=== PATIENT | female | born 1960 | race Caucasian/White ===

== ENCOUNTER → 2016-09-29 | Outpatient (CLI) | payer OTHER ==
[~2016-09-29] MED LIST: ALBUAER2 INH; CHOL1CAP95; FURO-85 PO; GABA600T PO; IBUP-1428 PO; LISI-729 PO; MAGN400T6 PO; METO25TA56 PO; MONT1TAB3 PO; PANT40TA PO; SYMIN/8045 INH; TIOTCAP INH; TRAM-10 PO
== END | disposition home or self-care (01) ==
LOC: C.LABPVFM 13:26
PROVIDERS: ATTEND Nurse Practitioner
DX: E55.9 Vitamin D deficiency, unspecified (principal); E83.42 Hypomagnesemia

== ENCOUNTER → 2016-12-18 | Outpatient (CLI) | payer OTHER | END | disposition home or self-care (01) | LOC: C.LABPVFM 15:04 | PROVIDERS: ATTEND Nurse Practitioner | DX: E55.9 Vitamin D deficiency, unspecified (principal) ==

== ENCOUNTER → 2016-12-18 | Outpatient (CLI) | payer OTHER ==
--- NOTE | 2016-12-18 14:31 | DIAGNOSTIC IMAGING REPORT ---
THORACIC SPINE 3 VIEWS HISTORY: Cervicalgia, thoracic BACK PAIN COMPARISON: None. FINDINGS: There is no fracture. No subluxation. Mild degenerative disc disease within the upper to mid thoracic spine. IMPRESSION: No fracture or subluxation within the thoracic spine. Electronically signed by: Jesus Parr M.D. 12/18/2016 2:29 PM Dictated Date/Time: 12/18/2016 2:28 PM
--- NOTE | 2016-12-18 16:46 | DIAGNOSTIC IMAGING REPORT ---
CERVICAL SPINE 6 VIEWS CLINICAL HISTORY: Cervicalgia. FINDINGS: AP, lateral, bilateral oblique, odontoid, and swimmer's views of the cervical spine are obtained. No prior studies are available for comparison at the time of dictation. The skeletal structures are osteopenic. There is no radiographic evidence of fracture or subluxation involving the cervical spine. Vertebral body height and alignment are maintained throughout the cervical spine. C7 is best seen on the swimmer's view. The atlantodental articulation appears preserved. The odontoid process and lateral masses are intact on the open mouth view. The spinolaminar line is intact. Tiny anterior osteophytes are seen throughout. The intervertebral disc spaces appear maintained. A small posterior disc osteophyte complex at C6-C7 may contribute to mild acquired compromise of the central canal. Mild bilateral neural foraminal stenosis is suggested in the lower cervical region on the oblique views. The prevertebral soft tissues are within normal limits. There is atherosclerotic calcification of the carotid bulbs. Partially imaged apical lung parenchyma appears clear. IMPRESSION: 1. There is no acute bony abnormality is seen involving the cervical spine. 2. Osteopenia and mild spondylotic change as above. Dictated: 12/18/2016 4:00 PM Transcribed: 12/18/2016 4:45 PM [id number] Electronically signed by: William Silva M.D. 12/19/2016 7:07 AM Dictated Date/Time: 12/18/2016 4:00 PM
== END | disposition home or self-care (01) ==
LOC: C.RADBC 13:52
PROVIDERS: ATTEND Physician Assistant
DX: M54.2 Cervicalgia (principal); M85.88 Other specified disorders of bone density and structure, other site; M54.6 Pain in thoracic spine; E55.9 Vitamin D deficiency, unspecified; M54.16 Radiculopathy, lumbar region; M79.1 Myalgia; Z88.1 Allergy status to other antibiotic agents; Z88.8 Allergy status to other drugs, medicaments and biological substances; Z88.5 Allergy status to narcotic agent; E66.01 Morbid (severe) obesity due to excess calories

== ENCOUNTER → 2017-01-01 | Outpatient (CLI) | payer OTHER ==
--- NOTE | 2017-01-01 12:10 | DIAGNOSTIC IMAGING REPORT ---
ULTRASOUND OF THE CAROTID ARTERIES CLINICAL HISTORY: Atherosclerotic carotid disease COMPARISON STUDY: None. TECHNIQUE: Real-time, grayscale, and color Doppler sonography of the carotid arteries was performed. Imaging reviewed in the transverse and longitudinal planes. NASCET criteria was utilized for stenosis calcification. FINDINGS: There is mild to moderate atherosclerotic plaque present . The peak systolic velocity within the right internal carotid artery is 109 cm/sec. The systolic velocity ratio of right internal to common carotid artery is 1.3. The peak systolic velocity within the left internal carotid artery is 82 cm/sec. The systolic velocity ratio left internal to common carotid artery is 0.8. Antegrade flow is seen in the vertebral arteries. The external carotid arteries are patent. Blood pressure in the right arm measured 151 mm/Hg. Blood pressure in the left arm measured 152 mm/Hg. IMPRESSION: Atheromatous changes. No evidence of hemodynamic significant carotid stenosis. Electronically signed by: Cash Rojas M.D. 01/01/2017 12:08 PM Dictated Date/Time: 01/01/2017 12:06 PM
--- NOTE | 2017-01-05 13:05 | CODING QUERY MEDICAL NECESSITY ---
SUPPORTING DIAGNOSIS NEEDED A supporting diagnosis is required for the test/procedure performed on this patient in order for us to be reimbursed by the patient's insurance. Please provide a supporting diagnosis for the following test/procedure listed below next to the test name along with your signature. *If there is no additional diagnosis for this patient that would support the following test/procedure please document that below next to the test/procedure. Test(s)/Procedure(s) that require a supporting diagnosis: DOS 01/01 * Carotid Doppler DIAGNOSIS: Provider Signature: Date: Thank you Helen Jarquin Health Information Management Once completed, please kindly fax back to [phone] For questions please call [phone]
== END | disposition home or self-care (01) ==
LOC: C.ULTR 11:19
PROVIDERS: ATTEND Nurse Practitioner
DX: I65.29 Occlusion and stenosis of unspecified carotid artery (principal)

== ENCOUNTER → 2017-05-15 | Outpatient (CLI) | payer OTHER ==
--- NOTE | 2017-05-16 08:21 | SPLIT NIGHT TECHNICIAN REPORT ---
[facility] Split Night Polysomnogram - Siderographist Report Study date: 05/15/2017 Referring Physician: BUDDY AUSTIN DO, DO Name: BRIAN HICKS Siderographist: Desi Shepard, PSGT. Date of : 1960 Height: 56 years, Height 5' 4" Sex: Female Weight: 278 lbs Age: 56 Neck Circum:18.5 inches BMI: Medications: 47.71 Furosemide 20 mg, Gabapentin 300 mg, IBP 800 mg, Lisinopril 10 mg, Magnesium 500 mg, Metoprolol 25 mg, Montelukast Sodium 10 mg, Pantoprazole Sodium 40 mg, Stiolto Resp., Tramadol HCI 50 mg, Ventolin HFA, Vit.D3 5000 units. Patient History 56 yr. old female presents tonight for a split night study. Patient states that she snores and snorts herself awake, she also states that while at her daughters' house she was told that she stops breathing during sleep. Pt. sleeps in a recliner at home due to a back pain and C.O.P.D. ESS=13, Neck=18.5 inches. Parameters Monitored NPSG: E1-M2, E2-M1, Fp1-M2, Fp2-M1, F3-M2, F4-M2, F4-M1, C3-M2, C4-M2, C4-M1, O1-M2, O2-M2, O2-M1, T3-M2, T4-M1, P3-M2, P4-M1, CHIN1, CHIN2, HR, EKG, Legs, PFLOW, SNOR, FLOW, CFLOW, Tidal Volume, THOR, ABDO, SpO2, PLTH, CPRESS, ETCO2 Wave, ETCO2, pH SLEEP SUMMARY DATA DIAGNOSTIC TREATMENT Lights Out: 9:55:27 PM NONE Lights On: 1:37:27 AM 5:29:57 AM Total Recording Time (TRT): 223.7 min. 228.8 min. Total Sleep Time (TST): 129.5 min. 203.5 min. NREM Time: 129.5 min. 163.5 min. REM Time: 0.0 min. 40.0 min. Sleep Period Time (SPT): 172.5 min. 204.0 min. Sleep Efficiency (SE): 58 % 90 % Sleep Latency: 49.0 min. NONE min. Arousal Index: 73.2 7.4 PAP Treatment Levels: 4, 6, 7, 8, 9 * Optimal Pressure(s) SLEEP STAGING DATA DIAGNOSTIC TREATMENT Duration (min) TST % Duration (min) TST % Stage Wake: 94.2 min. -- 25.3 min. -- WASO: 43.5 min. -- 0.5 min. -- NREM: 129.5 min. 100 % 163.5 min. 80 % Stage N1: 11.0 min. 8 % 1.5 min. 1 % Stage N2: 118.5 min. 92 % 105.5 min. 52 % Stage N3: 0.0 min. 0 % 56.5 min. 28 % REM: 0.0 min. 0 % 40.0 min. 20 % POSITIONAL DATA Event Count Index Event Count Index Supine: 23 64.2 15 4.4 Supine NREM: 23 64.2 13 4.8 Supine REM: N/A N/A 2 3 Non-Supine: 119 66.1 N/A N/A Non-Supine NREM: 119 66.1 N/A N/A Non-Supine REM: N/A N/A N/A N/A AROUSAL SUMMARY DATA: Event Count Index Event Count Index Apnea Arousals: 4 4.6 0 0.0 Hypopnea Arousals: 50 23.2 2 0.6 Snore Arousals: 23 10.7 2 0.6 PLM Arousals: 14 6.5 5 1.5 Non-Specific Arousals: 61 28.3 16 4.7 Total Arousals: 158 73.2 25 7.4 MYOCLONUS (PLM) Event Count Index Event Count Index PLM: 99 45.9 139 41.0 PLM AROUSAL: 14 6.5 5 1.5 PLM W/O AROUSAL 99 45.9 134 39.5 PLM W/RESP EVENT 10 0.0 3 0.0 MYOCLONUS (PLM) Event Count Index Event Count Index LM: 7 39.8 19 5.6 LM AROUSAL: 7 3.2 0 0.0 LM W/O AROUSAL LM W/RESP EVENT LM NON SPECIFIC 117 54.2 146 43.0 HEART RATE DATA DIAGNOSTIC TREATMENT Sleep (bpm): 85 80 REM (bpm): N/A 88 NREM (bpm): 92 90 Tachycardia Count: 0 0 Tachycardia Duration: 0.00 0 Bradycardia Count: 0 0 Bradycardia Duration: 0.00 0 DIAGNOSTIC PORTION TREATMENT PORTION RESPIRATORY DATA Event Count Index Event Count Index AHI: -- 65.8 -- 4.4 RDI: -- 65.8 -- 4 Obstructive Apnea: 10 4.6 0 0.0 Central Apnea: 0 0.0 0 0.0 Mixed Apnea: 0 0.0 0 0.0 Hypopnea: 132 61.2 15 4.4 RERA: 0 0.0 0 0.0 Total Apneas: 10 4.6 0 0.0 RESPIRATORY DATA REM NREM SLEEP REM NREM SLEEP Supine Position: Obstructive Apneas: N/A 0 0 0 0 0 Central Apneas: N/A 0 0 0 0 0 Mixed Apneas: N/A 0 0 0 0 0 Hypopneas: N/A 23 23 2 13 15 RERA N/A 0 0 0 0 0 Total Supine Events: N/A 23 23 2 13 15 Supine AHI: N/A 64.2 64.2 3 4.8 4.4 Supine RDI: N/A 64.2 64.2 3.0 4.8 4.4 REM NREM SLEEP REM NREM SLEEP Non-Supine Position: Obstructive Apneas: N/A 10 10 N/A N/A N/A Central Apneas: N/A 0 0 N/A N/A N/A Mixed Apneas: N/A 0 0 N/A N/A N/A Hypopneas: N/A 109 109 N/A N/A N/A RERA N/A 0 0 N/A N/A N/A Total Supine Events: N/A 119 119 N/A N/A N/A Supine AHI: N/A 66.1 66.1 N/A N/A N/A Supine RDI: N/A 66.1 66.1 N/A N/A N/A OXYGEN DESTAURATION DATA: Event Count Index Event Count Index REM Desaturations: N/A N/A 6 9.0 NREM Desaturations: 169 78.3 18 6.6 SNORE DATA DIAGNOSTIC TREATMENT Snore Time: 11.3 2:05:57 AM Snore TST%: 4 2 Snore Arousal Count: 23 2 Snore Arousal Index: 10.7 0.6 Desaturation Event Summary: Minimum %SpO2 Event Count Mean/Min/Max Duration(sec.) Desaturation Index % Time In Bed > 90 186 23.1 / 9.3 / 58.8 45.4 55.9 86 - 90 15 20.6 / 7.0 / 57.5 5.0 41.2 81 - 85 0 N/A 0.0 2.9 76 - 80 0 N/A 0.0 0.0 71 - 75 0 N/A 0.0 0.0 66 - 70 0 N/A 0.0 0.0 61 - 65 0 N/A 0.0 0.0 56 - 60 0 N/A 0.0 0.0 51 - 55 0 N/A 0.0 0.0 < 50 0 N/A 0.0 0.0 OXYGEN SATURATION DATA DIAGNOSTIC TREATMENT SpO2 Mean Sleep: 92 % 89 % SpO2 Mean REM: N/A % 88 % SpO2 Mean NREM: 92 % 90 % SpO2 Minimum Sleep: 79 % 80 % SpO2 Minimum REM: N/A % 83 % SpO2 Minimum NREM: 79 % 80 % Time Below 90% (TST): 20.3 97.5 Time Below 88% (TST): 4.7 39.1 Total REM NREM Awake <50% 0.0 min. 0.0 min. 0.0 min. 0.0 min. 51 - 60% 0.0 min. 0.0 min. 0.0 min. 0.0 min. 61 - 70% 0.0 min. 0.0 min. 0.0 min. 0.0 min. 71 - 80% 0.1 min. 0.0 min. 0.1 min. 0.0 min. 81 - 90% 193.8 min. 34.5 min. 146.1 min. 13.3 min. 91 - 100% 245.9 min. 5.5 min. 143.5 min. 97.0 min. Average 91 88 91 93 Minimum SpO2 79 83 79 82 Desaturation Event Index 25.7 9.0 38.3 1.0 # Desat. Events below 89% 86 6 80 0 Time(%) with Saturation below 89% 16.9 5.9 10.5 0.6 Time(min.) with Saturation below 89% 74.2 25.7 46.0 2.5 Recording Siderographist Comments: Split -Night: MS. Hicks slept in the right, and supine positions. No cardiac arrhythmia or PLM's noted. No bruxism noted. Snoring was noted and scored as a 3 on a scale of 1 through 5. (0=no snoring, 5=snoring loud enough to be heard through a closed door or down the [address] way) At 1:37 am, MS. Hicks has met specific Split-Night criteria during the diagnostic portion of this study. CPAP was initiated at +4 CMH2O and up-titrated to an optimal level of +9 CMH2O, which nearly eliminated all respiratory events and snoring. A Respironics Nicolle View, was used during titration Ms. Hicks awoke to use the restroom one time during the night. Ms. Hicks stated, I did not sleep as well as I do when I am in my own chair. Patient stated that she sleeps in a recliner at home, she didn't feel her legs were elevated enough in the hospital bed so her back was hurting her. The tech put two pillows behind her knees for support and she said that gave her some relief. She stated that her back is very painful. Patient did sleep with her head at a 40% incline and legs elevated throughout the study. The final report will be interpreted and signed by a sleep physician. The completed physician report will then be placed in the patient medical record. Ms. Hicks was very anxious with the full face mask, she started to hyperventilate, A Nicolle view was then tried with much better results', patient slept well and tolerated treatment well. Therapy Event: Therapy (cm H20) 0 4 6 7 8 9 Total Time at Pressure (min.) 223.7 2.8 58.5 77.3 15.9 72.8 TST at Pressure (min.) 129.5 0.0 37.5 77.3 15.9 72.8 # Periods 1 1 1 1 1 1 Sleep Onset (min.) 49.0 N/A 20.5 0.0 0.0 0.0 REM Onset (min.) N/A N/A N/A 9.0 N/A 31.3 Sleep Efficiency % 57 0 64 100 100 100 Wakefulness (%) 42.1 100.0 35.9 0.0 0.0 0.0 Wakefulness (min.) 94.2 2.8 21.0 0.0 0.0 0.0 NREM 1 (%) 4.9 0.0 2.6 0.0 0.0 0.0 NREM 1 (min.) 11.0 0.0 1.5 0.0 0.0 0.0 NREM 2 (%) 53.0 0.0 27.4 56.0 70.5 48.1 NREM 2 (min.) 118.5 0.0 16.0 43.3 11.2 35.0 NREM 3 (%) 0.0 0.0 34.2 10.4 29.5 32.7 NREM 3 (min.) 0.0 0.0 20.0 8.0 4.7 23.8 REM (%) 0.0 0.0 0.0 33.6 0.0 19.2 REM (min.) 0.0 0.0 0.0 26.0 0.0 14.0 # Arousals 158 N/A 5 8 4 8 Arousal Index 73.2 N/A 8.0 6.2 15.1 6.6 # Snore 551 N/A 97 75 1 19 Snore Index 255.3 N/A 155.3 58.2 3.8 15.7 AHI 65.8 N/A 6.4 3.1 3.8 4.9 AHI Supine 64.2 N/A 6.4 3.1 3.8 4.9 AHI Non-Supine 66.1 N/A N/A N/A N/A N/A NREM AHI 65.8 N/A 6.4 3.5 3.8 5.1 REM AHI N/A N/A N/A 2.3 N/A 4.3 RDI 65.8 N/A 6.4 3.1 3.8 4.9 # Obstructive 10 N/A 0 0 0 0 # Central Ap 0 N/A 0 0 0 0 # Mixed 0 N/A 0 0 0 0 # Hypopneas 132 N/A 4 4 1 6 RERAS 0 N/A 0 0 0 0 Total Respiratory Events 142 N/A 4 4 1 6 Time Below SpO2 89.00% (min.) 11.3 0.0 24.1 30.4 1.5 4.5 Mean NREM SpO2 (%) 92 N/A 88 90 91 91 Mean REM SpO2 (%) N/A N/A N/A 87 N/A 90 Mean Sleep SpO2 (%) 92 N/A 88 89 91 90 Min NREM SpO2 (%) 79 N/A 82 80 85 87 Min REM SpO2 (%) N/A N/A N/A 83 N/A 86 Position Supine (min.) 21.5 0.0 37.5 77.3 15.9 72.8 Position Non-supine (min.) 108.0 0.0 0.0 0.0 0.0 0.0 LM Index Sleep 85.7 N/A 4.8 36.5 101.9 66.7 LM Index NREM 85.7 N/A 4.8 52.6 101.9 80.6 LM Index REM N/A N/A N/A 4.6 N/A 8.6 Mean Heart Rate (bpm) 85 N/A 81 82 78 79 Min Heart Rate (bpm) 46 N/A 69 71 70 71
--- NOTE | 2017-05-17 20:09 | Sleep Study ---
Sleep Study Report Date of Service: 05/15/2017 Sleep Study Report Clinical data: The patient is a 56-year-old female who has a BMI of 47.71. She has a history of snoring, observed apneas, and she has an [place] score of 13. She also has COPD. This was an in-lab split night sleep study. Sleep architecture: During the diagnostic portion of the study the sleep period time was 172.5 minutes. The total sleep time was 129.5 minutes. Sleep efficiency was moderately reduced to 58 percent. The sleep latency was severely prolonged to 49.0 minutes. Sleep consisted of stage N1 8 percent, stage N2 92 percent, stage N3 0 percent, and stage REM 0 percent. During the therapeutic portion of the study the patient's respiratory events were treated with nasal CPAP. The sleep period time was 204.0 minutes. The total sleep time was 203.5 minutes. The sleep efficiency was 90 percent. Sleep latency was 0. Sleep consisted of stage N1 1 percent, stage N2 52 percent, stage N3 28 percent , and stage REM 20 percent. Arousal data: During the diagnostic portion of the study the patient had 158 arousals including 4 apnea arousals, 50 hypopnea arousals, 23 snoring arousals, 14 PLM arousals, and 61 nonspecific arousals. The arousal index was severely elevated at 73.2. During the therapeutic portion of the study patient had a total of 25 arousals including 2 hypopnea arousals, 2 snoring arousals, 5 PLM arousals, and 16 nonspecific arousals. The arousal index was 7.4. PLM data: During the diagnostic portion of the study patient had a total of 99 periodic limb movements for an index of 45.9. There were 14 arousals associated with limb movements for a PLM arousal index of 6.5. During the therapeutic portion of the study the patient had 139 periodic limb movements for an index of 41.0. There were 5 limb movements associated with arousals for a PLM arousal index of 1.5. EKG: The underlying cardiac rhythm was normal sinus. The cardiac rates ranged from 85 to 92 beats per minute. Respiratory data: During the diagnostic portion of the study the patient had a total of 142 respiratory events including 10 obstructive apneas and 132 hypopneas. Hypopneas were scored according to the 4 percent desaturation rule. The apnea- hypopnea index was severely elevated at 65.8. During the therapeutic portion of the study the patient's nocturnal events were treated with nasal CPAP. There was a total of 15 respiratory events, all hypopneas. The apnea-hypopnea index was 4.4. Oximetry data: During the diagnostic portion of the study the mean saturation was 92 percent. The minimum saturation was 79 percent. There was a total of 4.7 minutes with saturations less than 88 percent. During the therapeutic portion of the study the mean saturation was 89 percent. The minimum saturation was 80 percent. There was a total of 39.1 minutes with saturations less than 88 percent. Compensation Consultant comments: The patient slept in the right, and supine positions. No cardiac arrhythmia was noted. No bruxism noted. The patient snored and the snoring was scored as a 3 on a scale of 1 through 5. At 1:37 a.m. the patient met specific split night criteria during the diagnostic portion of the study. CPAP was initiated at 4 centimeters and up titrated to an optimal level of 9 centimeters which nearly eliminated all respiratory events and snoring. A Respironics Nicolle view was used during titration. The patient awaken once to use the restroom during the night. The patient did complain of being uncomfortable. She usually sleeps in a recliner. Her back was hurting. She did sleep with her head at a 40 degree incline and legs elevated throughout the study. Impressions: 1. Obstructive sleep [id number] improved with nasal CPAP at 9 centimeters Comments: The patient had severe sleep apnea as noted. She also had significant hypoxia. Nasal CPAP was initiated and she did very well. Her sleep efficiency dramatically improved. Her sleep architecture improved. She had some degree of REM rebound. The frequency of arousals dramatically lessened. She persisted with some degree of hypoxia intermittently. She had a modest number of limb movements throughout the night both during the diagnostic and therapeutic portions. There is no treatment necessary for the underlying limb movement disorder. The sleep disordered breathing should be treated 1st. Recommendations: 1. It is advised that the patient be started on nasal CPAP at 9 centimeters. 2. It is suggested that she be ordered a Respironics Nicolle view mask. 3. Weight loss is advised in light of the severe elevation of BMI of 47.71. 4. If possible the patient should avoid sleeping in the supine position. 5. The patient should be seen on follow-up between day 31 day 90 after receiving her CPAP. Copies To 1: Andres Sandra, ; Christina Tineo [email or web address]
== END | disposition home or self-care (01) ==
LOC: C.NEUR 21:00
PROVIDERS: ATTEND Internal Medicine Pulmonary Disease
DX: G47.33 Obstructive sleep apnea (adult) (pediatric) (principal); J44.9 Chronic obstructive pulmonary disease, unspecified; E66.01 Morbid (severe) obesity due to excess calories

== ENCOUNTER → 2017-08-10 | Outpatient (CLI) | payer OTHER ==
[2017-08-10 17:59] LABS: BASO % 0.2 %; BASO ABS # 0.04 K/uL (0-0.2); COMPLETE YES; EOS % 0.9 %; HEMATOCRIT 41.6 % (37-47); IG% 0.4 %; LYMPH % 20.7 %; LYMPH ABS # 3.46 K/uL (1.2-3.4); MEAN CELL VOLUME 88.5 fL (80-100); MEAN CORPUSCULAR HEMOGLOBIN 28.9 pg (25-34); MEAN CORPUSCULAR HGB CONC 32.7 g/dl (32-36); MEAN PLATELET VOLUME 9.9 fL (7.4-10.4); NEUT % 73.8 %; PLATELET COUNT 426 K/uL (130-400); WHITE BLOOD COUNT 16.71 K/uL (4.8-10.8)
== END | disposition home or self-care (01) ==
LOC: C.LABPVFM 14:41
PROVIDERS: ATTEND Family Medicine
DX: E55.9 Vitamin D deficiency, unspecified (principal); N95.0 Postmenopausal bleeding

== ENCOUNTER → 2017-08-16 | Outpatient (CLI) | payer OTHER ==
--- NOTE | 2017-08-16 11:36 | DIAGNOSTIC IMAGING REPORT ---
EXAMINATION: PELVIC ULTRASOUND (transabdominal and endovaginal scanning) CLINICAL HISTORY: Abnormal postmenopausal bleeding COMPARISON STUDY: None FINDINGS: The uterus measured 9.6 x 3.1 x 4.1 cm.. The endometrial stripe measured 2 mm. The right ovary measured 13.6 x 8.4 x 11 cm. There are septations which contain internal vascularity. The findings are highly suspicious for that ovarian neoplasm. Gynecological consultation is recommended.. The left ovary was nonvisualized There is no ultrasonographic evidence of ovarian torsion. It should be noted that ovarian torsion can be present with normal Doppler ultrasonographic findings. There was no evidence of pathologic free pelvic fluid. IMPRESSION: 1. Ultrasonographically normal uterus 2. 13.6 cm right adnexal mass, likely representing an enlarged ovary with thick septations and internal vascularity. The findings are suspicious for an ovarian neoplasm. Gynecological consultation is recommended. Electronically signed by: Cash Rojas M.D. 08/16/2017 11:35 AM Dictated Date/Time: 08/16/2017 11:32 AM
== END | disposition home or self-care (01) ==
LOC: C.ULTR 10:06
PROVIDERS: ATTEND Family Medicine
DX: N95.0 Postmenopausal bleeding (principal); R93.5 Abnormal findings on diagnostic imaging of other abdominal regions, including retroperitoneum

== ENCOUNTER → 2017-09-13 | Day surgery (SDC) | payer OTHER ==
[2017-09-06 08:35] VITALS: Ht 160 cm; Wt 113.6 kg
[~2017-09-13] VITALS: Ht 160 cm; Wt 113.6 kg
[~2017-09-13] MED LIST changes: +ALBU1.257 NEB; -ALBUAER2 INH; -CHOL1CAP95; +LIDOCAINE HCL 2% 2 ML VIAL (20MG/ML) ONE; +LISI-461 PO; -LISI-729 PO; -MAGN400T6 PO; +NRN/300 PO; +PROPOFOL IV EMULSION 10 MG/ML 20 ML VIAL IV ONE; +SODIUM CHLORIDE 0.9% 500ML 500 ML IV ONE; +SPRIN/30 INH; -SYMIN/8045 INH; +SYMIN160 INH; -TIOTCAP INH; +VNTHFA/IN INH
--- NOTE | 2017-09-13 10:43 | Endo History and Physical ---
History & Physical Date of Service: Sep 13, 2017. Chief Complaint: Pelvic mass on CT Referring Physician: Christina HANCOCK History of Present Illness abnormal CT scan/Screening Past Surgical History Hx Cardiac Surgery: No Hx Internal Defibrillator: No Hx Pacemaker: No Hx Abdominal Surgery: Yes (APPY) Hx of Implantable Prosthesis: No Hx Post-Op Nausea and Vomiting: No Hx Cancer Surgery: No Hx Thoracic Surgery: No Hx Orthopedic: No Hx Urinary Tract Surgery: No Family History None Social History Smoking Status: Current Every Day Smoker Hx Substance Use: No Hx Alcohol Use: Yes (RARELY) Allergies Coded Allergies: Amoxicillin (Unverified Allergy, Unknown, HIVES, 09/06/17) Clavulanic Acid (Unverified Allergy, Unknown, HIVES, 09/06/17) Codeine (Verified Allergy, Unknown, DIZZY, VOMIT, 09/06/17) Morphine (Verified Allergy, Unknown, VOMIT, 09/06/17) Current Medications Reported Home Medications Medications Dose Route/Sig Max Daily Dose Days Date Category Symbicort 160/4.5 Inhaler (Budesonide/Formoterol Fumarate) Aero 2 Puffs INH QAM 09/06/17 Reported Spiriva Handihaler (Tiotropium Clifton) 30 Puff/540 Mcg Aerp 1 Cap INH QAM 09/06/17 Reported Singulair (Montelukast Sodium) 10 Mg Tab 10 Mg PO QPM 09/06/17 Reported Neurontin (Gabapentin) 600 Mg Tab 600 Mg PO TID 09/06/17 Reported Neurontin (Gabapentin) 300 Mg Cap 300 Mg PO TID 09/06/17 Reported Zestril (Lisinopril) 10 Mg Tab 10 Mg PO QAM 09/06/17 Reported Ventolin Hfa (Albuterol) 200 Puffs/25291 Mcg Aers 2-4 Puffs INH Q6H PRN 09/06/17 Reported Albuterol Sulfate 1.25 Mg/3 Ml Neb 1 Vial NEB Q4 PRN 09/06/17 Reported Motrin (Ibuprofen) 800 Mg Tab 800 Mg PO Q8H PRN 11/30/15 Reported Ultram (Tramadol HCl) 50 Mg Tab 50-100 Mg PO BID PRN 07/31/13 Reported Lasix (Furosemide) 20 Mg Tab 20 Mg PO 2XWK 02/19/13 Reported Protonix (Pantoprazole Sodium) 40 Mg Tab 40 Mg PO QAM 11/12/12 Reported Lopressor (Metoprolol Tartrate) 25 Mg Tab 25 Mg PO BID 11/12/12 Reported Vital Signs Weight (Kilograms): 113.64 Height (Feet): 5 Height (Inches): 3 Date Time Temp Pulse Resp B/P (MAP) Pulse Ox O2 Delivery O2 Flow Rate FiO2 09/13/17 10:20 36.8 83 20 132/69 (90) 95 Room Air Physical Exam General Appearance: no apparent distress Respiratory/Chest: Auscultation: breath sounds normal Cardiovascular: Heart Auscultation: RRR Abdomen: Inspection & Palpation: soft Liver: non-tender Assessment and Plan stable for colonoscopy
--- NOTE | 2017-09-13 11:22 | Discharge Instructions ---
Endoscopy Patient Instructions Date / Procedure(s) Performed Sep 13, 2017. Colonoscopy Allergy Information Coded Allergies: Amoxicillin (Unverified Allergy, Unknown, HIVES, 09/06/17) Clavulanic Acid (Unverified Allergy, Unknown, HIVES, 09/06/17) Codeine (Verified Allergy, Unknown, DIZZY, VOMIT, 09/06/17) Morphine (Verified Allergy, Unknown, VOMIT, 09/06/17) Discharge Date / Findings Sep 13, 2017. small colon polyps removed. Provider Instructions Activity Restrictions - No exercising or heavy lifting for 24 hours. - Do not drink alcohol the day of the procedure. - Do not drive a car or operate machinery until the day after the procedure. - Do not make any important decisions or sign important papers in 24 hours after the procedure. Following Day: - Return to full activity which may include returning to work/school. Diet Start your diet with liquids and light foods (jello, soup, juice, toast). Then eat your usual diet if not nauseated. Treatment For Common After Affects For mild abdominal pain, bloating, or excessive gas: - Rest - Eat lightly - Lie on right side Follow-Up Information Follow-up with Christina HANCOCK as scheduled Anesthesia Information What You Should Know You have had a procedure that required some medicine to reduce anxiety and discomfort. This treatment is called moderate sedation. After receiving the treatment, you may be sleepy, but you will be able to breathe on your own. The effects of the treatment may last for several hours. Follow these instructions along with Activity/Diet recommendations noted above: * Do NOT do anything where dizziness or clumsiness would be dangerous. * Rest quietly at home today, then you can be up and about tomorrow. * Have a responsible person stay with you the rest of today. * You may have had an I.V. today. If so, you may take the dressing off later today. Recommendations Call your doctor if: * Trouble breathing * Continuous vomiting for more than 24 hours * Temperature above 101 degrees * Severe abdominal pain or bloating * Pain not relieved by pain medicine ordered * There is increased drainage or redness from any incision * A large amount of rectal bleeding greater than 2-3 tablespoons. (If you had a polyp/s removed or have hemorrhoids, a small amount of blood - from the rectum is to be expected.) * You have any unanswered questions or concerns. IN THE EVENT OF A SERIOUS EMERGENCY, GO TO THE NEAREST EMERGENCY ROOM Your discharge instructions were prepared by provider Sg Torrez. Patient Instructions Signature Page Bettye Hicks Patient (or Guardian) Signature/Date: I have read and understand the instructions given to me by my caregivers. Caregiver/RN/Doctor Signature/Date: The above-named patient and/or guardian has received patient instructions on this date. + Original Patient Signature Page (only) stays with chart. Please make copy for patient.
--- NOTE | 2017-09-13 11:33 | GI REPORT ---
Procedure Date: 09/13/2017 10:22 AM Procedure: Colonoscopy Indications: Abnormal CT of the GI tract Medicines: See the Anesthesia note for documentation of the administered medications Complications: No immediate complications. Estimated Blood Loss: Estimated blood loss was minimal. Procedure: Pre-Anesthesia Assessment: - Prior to the procedure, a History and Physical was performed, and patient medications, allergies and sensitivities were reviewed. The patient's tolerance of previous anesthesia was reviewed. - The risks and benefits of the procedure and the sedation options and risks were discussed with the patient. All questions were answered and informed consent was obtained. - Patient identification and proposed procedure were verified prior to the procedure by the physician and the nurse. The procedure was verified in the pre-procedure area. - Pre-procedure physical examination revealed no contraindications to sedation. - After reviewing the risks and benefits, the patient was deemed in satisfactory condition to undergo the procedure. After I obtained informed consent, the scope was passed under direct vision. Throughout the procedure, the patient's blood pressure, pulse, and oxygen saturations were monitored continuously. The scope was introduced through the anus and advanced to the cecum, identified by appendiceal orifice and ileocecal valve. The colonoscopy was performed without difficulty. The patient tolerated the procedure well. The quality of the bowel preparation was good. Findings: The perianal and digital rectal examinations were normal. A 8 mm polyp was found in the cecum. The polyp was sessile. The polyp was removed with a hot snare. Resection and retrieval were complete. Verification of patient identification for the specimen was done by the physician and nurse using the patient's name and medical record number. Estimated blood loss: none. A 5 mm polyp was found at 70 cm proximal to the anus. The polyp was sessile. The polyp was removed with a cold snare. Resection and retrieval were complete. Verification of patient identification for the specimen was done by the physician and nurse using the patient's name and medical record number. Estimated blood loss was minimal. A 4 mm polyp was found at 40 cm proximal to the anus. The polyp was sessile. The polyp was removed with a cold snare. Resection and retrieval were complete. Verification of patient identification for the specimen was done by the physician and nurse using the patient's name and medical record number. Estimated blood loss was minimal. Many small-mouthed diverticula were found in the sigmoid colon. No additional abnormalities were found on retroflexion. Impression: - One 8 mm polyp in the cecum, removed with a hot snare. Resected and retrieved. - One 5 mm polyp at 70 cm proximal to the anus, removed with a cold snare. Resected and retrieved. - One 4 mm polyp at 40 cm proximal to the anus, removed with a cold snare. Resected and retrieved. - Diverticulosis in the sigmoid colon. Recommendation: - Await pathology results. - Discharge patient to home. Sg Torrez M.D. Sg Torrez MD 09/13/2017 11:33:18 AM This report has been signed electronically. Note Initiated On: 09/13/2017 10:22 AM I attest to the content of the Intraoperative Record and orders documented therein, exceptions below
--- NOTE | 2017-09-13 11:41 | Anesthesiology Progress Note ---
Anesthesia Post Op Note Date & Time Sep 13, 2017 at 11:41 Vital Signs Pain Intensity: 0 Vital Signs Past 12 Hours Date Time Temp Pulse Resp B/P (MAP) Pulse Ox O2 Delivery O2 Flow Rate FiO2 09/13/17 11:36 76 20 126/83 (97) 98 Room Air 09/13/17 11:22 36.4 80 20 125/61 (82) 97 Room Air 09/13/17 10:20 36.8 83 20 132/69 (90) 95 Room Air Notes Mental Status: alert / awake / arousable, participated in evaluation Pt Amnestic to Procedure: Yes Nausea / Vomiting: adequately controlled Pain: adequately controlled Airway Patency, RR, SpO2: stable & adequate BP & HR: stable & adequate Hydration State: stable & adequate Anesthetic Complications: no major complications apparent
[2017-09-13 11:50] VITALS: BP 130/69; PULSE 80; O2SAT 98
== END | disposition home or self-care (01) ==
LOC: C.GI 09:48
PROVIDERS: ATTEND Internal Medicine Gastroenterology
DX: R93.5 Abnormal findings on diagnostic imaging of other abdominal regions, including retroperitoneum (principal); D12.0 Benign neoplasm of cecum; K63.5 Polyp of colon; K57.30 Diverticulosis of large intestine without perforation or abscess without bleeding; G47.33 Obstructive sleep apnea (adult) (pediatric); I10 Essential (primary) hypertension; K21.9 Gastro-esophageal reflux disease without esophagitis; G62.9 Polyneuropathy, unspecified; F17.200 Nicotine dependence, unspecified, uncomplicated; Z90.49 Acquired absence of other specified parts of digestive tract

== ENCOUNTER → 2017-09-18 | Outpatient (CLI) | payer OTHER ==
[~2017-09-18] MED LIST changes: -LIDOCAINE HCL 2% 2 ML VIAL (20MG/ML) ONE; +OPTIRAY 320 IV PRN; -PROPOFOL IV EMULSION 10 MG/ML 20 ML VIAL IV ONE; -SODIUM CHLORIDE 0.9% 500ML 500 ML IV ONE
--- NOTE | 2017-09-18 13:36 | DIAGNOSTIC IMAGING REPORT ---
(CHEST) THORAX WITH CT DOSE: 2619.94 mGy.cm HISTORY: Mass PELVIC MASS TECHNIQUE: Multiaxial CT images of the chest were performed following the intravenous administration of contrast. A dose lowering technique was utilized adhering to the principles of ALARA. COMPARISON: 02/10/2011 FINDINGS: Moderate stable cardiomegaly. The mediastinal and hilar adenopathy procedure described has reverted to baseline and/or near normal configuration. No nodes exceed 8 mm. Thoracic aorta is normal in course and caliber. No evidence for dissection. Evaluation of the lung parenchyma shows no focal infiltrate or pneumothorax. There is no significant pulmonary nodularity. IMPRESSION: No acute process. Considerable improvement from the prior exam. The above report was generated using voice recognition software. It may contain grammatical, syntax or spelling errors. Electronically signed by: Aj London M.D. 09/18/2017 1:35 PM Dictated Date/Time: 09/18/2017 1:33 PM
--- NOTE | 2017-09-18 15:11 | DIAGNOSTIC IMAGING REPORT ---
CT OF THE ABDOMEN AND PELVIS WITH CONTRAST CLINICAL HISTORY: Pelvic mass. COMPARISON STUDY: Pelvic ultrasound August 16, 2017. TECHNIQUE: Following IV administration of 93 mL of Optiray-320, axial images of the abdomen and pelvis were obtained from the lung bases to the proximal femurs. Images were reviewed in the axial, sagittal, and coronal planes. IV contrast was administered without complication. A dose lowering technique was utilized adhering to the principles of ALARA. Oral contrast was administered. FINDINGS: The chest CT will be reported separately. A right hepatic lobe calcification is benign. There are no suspicious hepatic lesions. A splenic calcification is noted. The adrenal glands, kidneys and pancreas are unremarkable. There is no biliary or pancreatic ductal dilatation. There are gallstones within the gallbladder without evidence for acute cholecystitis. No enlarged abdominal or pelvic lymph nodes are identified. There is no ascites. The caliber and wall thickness of small and large bowel are normal. There is no evidence for a bowel obstruction. There is colonic diverticulosis without evidence for acute diverticulitis. Note is made of a large mixed cystic and solid anterior pelvic mass which extends into the lower abdomen. This mass measures 15 x 15.1 x 11.9 cm and corresponds to the finding on pelvic ultrasound August 16, 2017. This is predominantly cystic however has numerous thickened enhancing septations with peripheral nodularity. This abuts both ovaries. This appears to arise from the left ovary No suspicious osseous lesions are present. Note is made of an adjacent mesenteric 1.5 x 0.7 cm nodule shown image 202 of 401. Major vasculature of the abdomen and pelvis is noted. There is evidence for pelvic floor relaxation. Calcified right buttock abnormality is benign. IMPRESSION: 1. 15.1 x 15 x 11.9 cm mixed cystic and solid anterior pelvic mass which extends into the lower abdomen and corresponds to the finding shown on pelvic ultrasound. This abuts both ovaries however it is favored that the mass arises from the left ovary. This is highly suggestive of an ovarian neoplasm and gynecologic consultation is recommended. 2. 1.5 x 0.7 cm mesenteric nodule which is adjacent to the mass. A normal mesenteric lymph node is favored however a mesenteric implant could appear similar. No additional findings to suggest metastatic disease. 3. Cholelithiasis. Electronically signed by: Levy West M.D. 09/18/2017 3:09 PM Dictated Date/Time: 09/18/2017 1:32 PM
== END | disposition home or self-care (01) ==
LOC: C.CTS 12:13
PROVIDERS: ATTEND Obstetrics & Gynecology
DX: Z01.818 Encounter for other preprocedural examination (principal); N95.0 Postmenopausal bleeding; R19.09 Other intra-abdominal and pelvic swelling, mass and lump; K80.20 Calculus of gallbladder without cholecystitis without obstruction

== ENCOUNTER → 2017-09-28 | Outpatient (CLI) | payer OTHER ==
[~2017-09-28] MED LIST changes: -OPTIRAY 320 IV PRN
[2017-09-28 17:36] LABS: HEMATOCRIT 38.2 % (37-47); HEMOGLOBIN 12.7 g/dL (12.0-16.0); MEAN CELL VOLUME 89.5 fL (80-100); MEAN CORPUSCULAR HEMOGLOBIN 29.7 pg (25-34); MEAN CORPUSCULAR HGB CONC 33.2 g/dl (32-36); PLATELET COUNT 381 K/uL (130-400); RED CELL DISTRIBUTION WIDTH CV 14.2 % (11.5-14.5); RED CELL DISTRIBUTION WIDTH SD 46.4 fL (36.4-46.3); WHITE BLOOD COUNT 13.63 K/uL (4.8-10.8)
[2017-09-28 18:02] LABS: BLOOD UREA NITROGEN 8 mg/dl (7-18); CALCIUM 9.5 mg/dl (8.5-10.1); CARBON DIOXIDE 26 mmol/L (21-32); CHOLESTEROL 192 mg/dl (0-200); CREATININE 0.84 mg/dl (0.60-1.20); GLUCOSE 84 mg/dl (70-99); POTASSIUM 3.8 mmol/L (3.5-5.1); SODIUM 136 mmol/L (136-145)
[2017-09-28 18:04] LABS: LDL CHOLESTEROL CALCULATED 123 mg/dl
[2017-09-28 18:44] LABS: BASO % 0.3 %; BASO ABS # 0.04 K/uL (0-0.2); EOS ABS # 0.14 K/uL (0-0.5); IG# 0.08 K/uL (0.00-0.02); LYMPH % 19.4 %; LYMPH ABS # 2.65 K/uL (1.2-3.4); MONO % 4.4 %; NEUT % 74.3 %; NEUT ABS # 10.12 K/uL (1.4-6.5)
--- NOTE | 2017-10-11 08:08 | CODING QUERY NO DIAGNOSIS ---
: 1960 TREATMENT RENDERED WITHOUT A DIAGNOSIS To promote full compliance with coding requirements relating to patient care, physician participation is requested in all cases of stack clerk uncertainty. Please assist us with providing a diagnosis/symptom for the test(s) below: A diagnosis/symptom was not documented on your order. A valid diagnosis/symptom is required to bill all insurances. Please remember that we are unable to code a diagnosis of rule out, probable, possible, questionable, or suspected. Tests that require a diagnosis: DOS: 09/28/2017 * Lipid Profile Fasting DIAGNOSIS: * Magnesium DIAGNOSIS: * Partial Renal Profile DIAGNOSIS: Provider Signature: Date: Thank you [facility] Information Management Once completed, please kindly fax back to [phone] For questions please call [phone]
== END | disposition home or self-care (01) ==
LOC: C.LABPVFM 11:46
PROVIDERS: ATTEND Family Medicine
DX: D72.829 Elevated white blood cell count, unspecified (principal); I10 Essential (primary) hypertension; I65.29 Occlusion and stenosis of unspecified carotid artery; E83.42 Hypomagnesemia

== ENCOUNTER 2017-11-01 09:24 | Inpatient (IN) | payer OTHER ==
[~2017-11-01] VITALS: Ht 162.6 cm; Wt 109.5 kg
[2017-11-01] MEDS ORDERED: SODIUM CHLORIDE 0.9% 1000ML 1,000 ML IV ONE (09:44)
[2017-11-01] MEDS ORDERED: ONDANSETRON INJ 2 MG/ML 2 ML VIAL IV STA ×2 (09:54→15:58)
--- NOTE | 2017-11-01 09:57 | EMERGENCY ROOM VISIT NOTE ---
History Report prepared by Tara: Alyssa Mota Under the Supervision of: Dr. Jefferson Harrington D.O. First contact with patient: 09:44 Chief Complaint: VOMITING Stated Complaint: VOMITING,WEAKNESS Nursing Triage Summary: triage note: pt reports she had hysterectomy and mass removal at [facility] [place] on 10-22-17 - pt discharged 6 days ago. pt reports nausea, vomitting, generalized weakness, "cramping in my hands legs everywhere." History of Present Illness The patient is a 56 year old female who presents to the Emergency Room with complaints of vomiting beginning 3 days ago. The patient reports that she has been throwing up about every 2-3 hours. The patient reports that she had a total hysterectomy on 10/22. She also reports that she had a pelvic mass removed and that it is possibly cancerous. The patient reports that three days ago she was also sweating and was weak. The patient reports that yesterday she had cramps in her hands and arms. She reports that she has not been able to keep her normal medications down and that her vomit has been green. The patient states that she has has not urinated in 2 days. She denies having vaginal bleeding, abdominal pain, and chest pain. She reports a history of COPD. Source of History: patient Onset: 3 days ago Position: other (global) Quality: other (vomiting ) Associated Symptoms: + diaphoresis, + weakness, No chest pain, No abdominal pain Note: also denies: vaginal bleeding Review of Systems See HPI for pertinent positives & negatives. A total of 10 systems reviewed and were otherwise negative. Past Medical & Surgical Medical Problems: (1) Chronic back pain (2) Chronic obstructive lung disease Family History No pertinent family history Social History Smoking Status: Current Every Day Smoker Drug Use: none Marital Status: Housing Status: other Occupation Status: unemployed Current/Historical Medications Scheduled Budesonide/Formoterol Fumarate (Symbicort 160/4.5 Inhaler ), 2 PUFFS INH QAM Enoxaparin (Lovenox), Unknown Dose SQ DAILY Furosemide (Lasix), 20 MG PO 2XWK Gabapentin (Neurontin), 300 MG PO TID Gabapentin (Neurontin), 600 MG PO TID Lisinopril (Zestril), 10 MG PO QAM Metoprolol Tartrate (Lopressor) (Lopressor), 25 MG PO BID Montelukast Sodium (Singulair), 10 MG PO QPM Pantoprazole (Protonix), 40 MG PO QAM Tiotropium Clinton (Spiriva Handihaler), 1 CAP INH QAM Scheduled PRN Albuterol Hfa (Ventolin Hfa), 2-4 PUFFS INH Q6H PRN for Shortness of Breath Albuterol Sulfate (Albuterol Sulfate), 1 VIAL NEB Q4 PRN for Shortness of Breath Ibuprofen (Motrin), 800 MG PO Q8H PRN for Pain Prochlorperazine Maleate (Prochlorperazine Maleate), Unknown Dose PO DIRECTED PRN for Nausea Tramadol (Ultram), 50-100 MG PO BID PRN for Pain Allergies Coded Allergies: Amoxicillin (Verified Allergy, Intermediate, HIVES, 09/18/17) Clavulanic Acid (Verified Allergy, Intermediate, HIVES, 09/18/17) Codeine (Verified Adverse Reaction, Intermediate, DIZZY, VOMIT, 09/18/17) Morphine (Verified Adverse Reaction, Intermediate, VOMIT, 09/18/17) Physical Exam Vital Signs Date Time Temp Pulse Resp B/P (MAP) Pulse Ox O2 Delivery O2 Flow Rate FiO2 11/01/17 16:03 99 22 134/60 95 Room Air 11/01/17 14:36 89 20 159/82 96 Room Air 11/01/17 14:08 172/74 11/01/17 13:35 88 117/71 98 Room Air 11/01/17 13:10 89 20 149/89 98 Room Air 11/01/17 11:30 36.8 92 20 125/77 97 Room Air 11/01/17 10:12 95 Room Air 11/01/17 09:44 102/69 11/01/17 09:31 36.5 107 24 88/67 95 Room Air Physical Exam GENERAL: Patient is awake, alert, and in no acute distress. Patient is resting comfortably and showing no signs of anxiety EYES: The conjunctivae are clear. The pupils are round and reactive. EARS, NOSE, MOUTH AND THROAT: The nose is without any evidence of any deformity. Mucous membranes are moist tongue is midline NECK: The neck is nontender and supple. RESPIRATORY: Normal respiratory effort is noted there is no evidence of wheezing rhonchi or rales CARDIOVASCULAR: Regular rate and rhythm noted there no murmurs rubs or gallops normal S1 normal S2 GASTROINTESTINAL: The abdomen is distended, but soft. Bowel sounds are present in all quadrants. Epigastrium tenderness to palpation. Surgical site noted in midline. Skin eduardo in place. No erythema, drainage, or dehiscence noted. PELVIS: The Pelvis is stable. No tenderness to palpation is noted. BACK: No midline tenderness or or step-off noted range of motion in flexion extension as well as rotation no signs of muscle spasm noted MUSCULOSKELETAL/EXTREMITIES: There is no evidence of gross deformity full range of motion is noted in the hips and shoulders SKIN: There is no obvious evidence of any rash. There are no petechiae, pallor or cyanosis noted. NEUROLOGIC: Patient is awake alert and oriented x3 strength is symmetric patellar reflexes are 2+ bilaterally Medical Decision & Procedures ER Provider Diagnostic Interpretation: Radiology results as stated below per my review and radiologist interpretation: SINGLE VIEW CHEST CLINICAL HISTORY: Sepsis. Vomiting. FINDINGS: 2 AP, portable, upright chest radiographs are compared to study dated 03/23/2016 and correlated with chest CT dated 09/18/2017. The examination is degraded by portable technique and patient rotation. The heart is top normal for projection. The pulmonary vasculature is noncongested. Chronic interstitial thickening is similar to previous. No airspace consolidation or large pleural effusion is identified. Dependent atelectasis is observed. No pneumothorax is seen. The skeletal structures are osteopenic. There are numerous healed left-sided rib fractures. IMPRESSION: No acute cardiopulmonary abnormality. Electronically signed by: William Silva M.D. 11/01/2017 10:08 AM Dictated Date/Time: 11/01/2017 10:[address] SCAN OF THE ABDOMEN AND PELVIS WITHOUT IV CONTRAST CLINICAL HISTORY: Hypotension. Recent hysterectomy. COMPARISON STUDY: Abdominal CT dated 09/18/2017. TECHNIQUE: CT scan of the abdomen and pelvis is performed from the lung bases to the proximal femora. Images are reviewed in the axial, sagittal, and coronal planes. IV contrast was not administered for this examination as per the referring clinician. Note that the examination was performed in suboptimal fashion without oral and IV contrast. A dose lowering technique was utilized adhering to the principles of ALARA. CT DOSE: 1379.61 mGy.cm FINDINGS: Lung bases: The heart is normal in size and without pericardial effusion. The lung bases are clear. There is a tiny hiatal hernia. Liver: The unenhanced liver is top normal in size and demonstrates diffusely diminished attenuation consistent with hepatic steatosis. Fatty sparing is seen adjacent to gallbladder fossa. There is no intrahepatic biliary ductal dilatation. A coarse calcification is noted in the right lobe of liver. Gallbladder: Calcified gallstones are identified. There is no CT evidence of acute cholecystitis. Spleen: Normal in size and attenuation. There is a calcified splenic granuloma. Pancreas: Unenhanced pancreas is mildly atrophic and grossly unremarkable. Adrenal glands: Unremarkable. Kidneys: The unenhanced kidneys are normal in size and without hydronephrosis. Foci of cortical scarring are seen in the left upper pole. There are no renal calculi identified. There is no evidence of contour deforming renal mass lesion. Abdominal vasculature: The abdominal aorta is normal in course and caliber noting moderate to advanced atherosclerotic calcification. Bowel: The stomach is distended and fluid-filled. The proximal small bowel loops are distended and fluid-filled measuring up to 3.6 cm in diameter. A transition point suggested along the ventral abdominal wall deep to the incision site on image were 205, and the appearance is consistent with a high-grade small bowel obstruction. No focally thick walled small bowel obstruction identified. There is no pneumatosis intestinalis or portal venous gas. The distal small bowel and colon are decompressed. There are scattered colonic diverticula without CT evidence of acute diverticulitis. The appendix is not identified and reported surgically absent. Peritoneum: There is no intraperitoneal free air. There is trace free fluid in the pelvis. A midline surgical scar and skin clips are noted. Foci of induration and gas within the ventral abdominal pannus are likely related to recent surgery. Lymphadenopathy: No pathologically enlarged lymph nodes are identified. Stranding and surgical clips are seen along the left iliac chain. Pelvic viscera: Although decompressed, the bladder wall appears thickened and there is pericystic inflammation. The uterus is surgically absent. There is a 4.6 x 3.1 cm gas and fluid containing collection along the left pelvic sidewall seen on axial image #313. Skeletal structures: The skeletal structures are osteopenic. Moderate lumbosacral spondylosis is observed. There is grade 1 anterolisthesis at L4-L5. No lytic or blastic lesions are seen. There are healed left posterior rib fractures. IMPRESSION: 1. Suboptimal examination without oral and IV contrast. 2. Findings are consistent with a high-grade small bowel obstruction. A transition point is identified in the ventral abdominal midline deep to the incision site and this is likely related to adhesions. 3. There are changes of interval hysterectomy is compared to 09/18/2017. 4. There is a gas and fluid containing collection identified along the left pelvic sidewall. This measures 4.6 x 3.1 cm and is highly concerning for abscess. 5. Although decompressed, the bladder wall is thickened and there is pericystic inflammation. Correlate clinically and with urinalysis for evidence of cystitis. 6. Cholelithiasis. 7. Hepatic steatosis. 8. Additional findings as above. Electronically signed by: William Silva M.D. 11/01/2017 11:28 AM Dictated Date/Time: 11/01/2017 11:13 AM Laboratory Results 11/01/17 10:19 Red Blood Count 5.01, Mean Corpuscular Volume 84.8, Mean Corpuscular Hemoglobin 30.1, Mean Corpuscular Hemoglobin Concent 35.5, Mean Platelet Volume 9.8, Neutrophils (%) (Auto) 75.5, Lymphocytes (%) (Auto) 14.8, Monocytes (%) (Auto) 8.3, Eosinophils (%) (Auto) 0.7, Basophils (%) (Auto) 0.2, Neutrophils # (Auto) 11.32, Lymphocytes # (Auto) 2.22, Monocytes # (Auto) 1.25, Eosinophils # (Auto) 0.10, Basophils # (Auto) 0.03 11/01/17 10:19 Test 11/01/17 10:19 White Blood Count 15.00 K/uL (4.8-10.8) Red Blood Count 5.01 M/uL (4.2-5.4) Hemoglobin 15.1 g/dL (12.0-16.0) Hematocrit 42.5 % (37-47) Mean Corpuscular Volume 84.8 fL (80-100) Mean Corpuscular Hemoglobin 30.1 pg (25-34) Mean Corpuscular Hemoglobin Concent 35.5 g/dl (32-36) Platelet Count 519 K/uL (130-400) Mean Platelet Volume 9.8 fL (7.4-10.4) Neutrophils (%) (Auto) 75.5 % Lymphocytes (%) (Auto) 14.8 % Monocytes (%) (Auto) 8.3 % Eosinophils (%) (Auto) 0.7 % Basophils (%) (Auto) 0.2 % Neutrophils # (Auto) 11.32 K/uL (1.4-6.5) Lymphocytes # (Auto) 2.22 K/uL (1.2-3.4) Monocytes # (Auto) 1.25 K/uL (0.11-0.59) Eosinophils # (Auto) 0.10 K/uL (0-0.5) Basophils # (Auto) 0.03 K/uL (0-0.2) RDW Standard Deviation 42.6 fL (36.4-46.3) RDW Coefficient of Variation 13.9 % (11.5-14.5) Immature Granulocyte % (Auto) 0.5 % Immature Granulocyte # (Auto) 0.08 K/uL (0.00-0.02) Erythrocyte Sedimentation Rate 56 mm/hr (0-21) Prothrombin Time 10.3 SECONDS (9.0-12.0) Prothromb Time International Ratio 1.0 (0.9-1.1) Activated Partial Thromboplast Time 26.8 SECONDS (21.0-31.0) Partial Thromboplastin Ratio 1.0 Anion Gap 13.0 mmol/L (3-11) Est Creatinine Clear Calc Drug Dose 26.2 ml/min Estimated GFR () 20.4 Estimated GFR (Non- 17.6 BUN/Creatinine Ratio 8.2 (10-20) Calcium Level 10.7 mg/dl (8.5-10.1) Phosphorus Level 3.4 mg/dl (2.5-4.9) Magnesium Level 2.0 mg/dl (1.8-2.4) Total Bilirubin 0.8 mg/dl (0.2-1) Aspartate Amino Transf (AST/SGOT) 11 U/L (15-37) Alanine Aminotransferase (ALT/SGPT) 22 U/L (12-78) Alkaline Phosphatase 107 U/L (45-117) Total Creatine Kinase 20 U/L (26-192) Creatine Kinase MB < 0.5 ng/ml (0.5-3.6) Creatine Kinase MB Ratio (0-3.0) Troponin I < 0.015 ng/ml (0-0.045) C-Reactive Protein 7.74 mg/dl (0-0.29) Total Protein 8.9 gm/dl (6.4-8.2) Albumin 4.4 gm/dl (3.4-5.0) Globulin 4.5 gm/dl (2.5-4.0) Albumin/Globulin Ratio 1.0 (0.9-2) Lipase 157 U/L (73-393) Laboratory results per my review. Medications Administered Medications (Trade) Dose Ordered Sig/Faheem Route Start Time Stop Time Status Last Admin Dose Admin Sodium Chloride 1,000 ml @ 999 mls/hr Q1H1M ONCE IV 11/01/17 09:44 11/01/17 10:44 DC 11/01/17 10:23 999 MLS/HR Ondansetron HCl (Zofran Inj) 4 mg NOW STAT IV 11/01/17 09:54 11/01/17 09:55 DC 11/01/17 10:21 4 MG Sodium Chloride 1,000 ml @ 999 mls/hr Q1H1M STAT IV 11/01/17 10:57 11/01/17 11:57 DC 11/01/17 11:18 999 MLS/HR Ceftriaxone Sodium (Rocephin Inj) 1 gm NOW STAT IV 11/01/17 12:17 11/01/17 12:18 DC 11/01/17 13:35 1 GM Vancomycin HCl 2000 mg/Sodium Chloride 540 ml @ 200 mls/hr TODAY@1217 IV 11/01/17 12:17 11/01/17 18:00 11/01/17 13:34 200 MLS/HR Sodium Chloride 1,000 ml @ 999 mls/hr Q1H1M STAT IV 11/01/17 12:22 11/01/17 13:22 DC 11/01/17 13:34 999 MLS/HR Promethazine HCl 25 mg/Sodium Chloride 51 ml @ 204 mls/hr NOW STAT IV 11/01/17 15:58 11/01/17 16:12 DC 11/01/17 15:58 204 MLS/HR ECG Per My Interpretation Indication: vomiting Rate (beats per minute): 96 Rhythm: normal sinus Findings: no ectopy, other (early transition noted) Change: no significant change (from 11/12/12) ED Course 0944: Ordered Sodium Chloride 1,000 ml @ 999 mls/hr IV. 0950: The patient was evaluated in room B5. A complete history and physical examination were performed. 0954: Ordered Zofran Inj 4 mg IV. 1057: Ordered Sodium Chloride 1,000 ml @ 999 mls/hr IV. 1217: Ordered Vancomycin HCl 2,000 mg/Sodium Chloride 540 ml @ 200 mls/hr IV, Rocephin Inj 1 gm IV. 1222: Ordered Sodium Chloride 1,000 ml @ 999 mls/hr IV. 1233: I spoke to the transfer center about why we need to send the patient to [facility]. 1251: I discussed the patient's case with Dr. Edmondson. The patient will be evaluated for further management. The patient will be transferred to [facility] in [place]. Medical Decision Differential diagnosis: Etiologies such as appendicitis, diverticulitis, PUD, biliary pathology, UTI, pancreatitis, obstruction, mesenteric ischemia, aortic pathology, infections, inflammatory bowel disease, renal colic, as well as others were entertained. Nursing notes reviewed. The patient is a 56-year-old female who presented to the emergency department for an evaluation of nausea vomiting. The patient recently had a hysterectomy at [facility]. The patient presented to the emergency department with nausea and vomiting. She was found to have bilious emesis on exam. She was treated with IV fluids and IV antiemetics. On subsequent reevaluation she was somewhat improved. She was also given IV antibiotics for presumed intra- abdominal abscess which was noted on CAT scan. I discussed the patient's laboratory and radiographic studies with her. That included a small bowel obstruction noted on CAT scan. I discussed her case with the covering surgeon at [facility]. They have agreed to accept the patient in transfer. The patient was agreeable to transfer. Transfer orders were filled out by myself. Cardiology just because Because the delay in transfer I also discussed this case with the on-call general surgical group as well as the on-call [facility] hospitalist group. They have agreed to see the patient in the emergency department. Medication Reconcilliation Current Medication List: was personally reviewed by me Blood Pressure Screening Patient's blood pressure: Elevated blood pressure Blood pressure disposition: Elevated BP felt to be situational Consults Time Called: 1222 Consulting Physician: Dr. Edmondson- [facility] Returned Call: [phone] I discussed the patient's case with Dr. Edmondson. The patient will be evaluated for further management. Additional Consults: Time Called: 1644 Consulted Physician: Sharon Griggs Returned Call: [phone] Additional Comments: She has agreed to evaluate the patient for further management while she is at [facility]. Time Called: 1649 Consulted Physician: Dr Cordero Returned Call: [phone] Additional Comments: He was unable to discuss the patient with me at this time because of volume I also discussed this case with Dr. Rasmussen. He will try to evaluate the patient in the emergency department so we can determine the proper disposition for this patient. Impression Primary Impression: SBO (small bowel obstruction) Additional Impressions: Bilious emesis Post-operative wound abscess Acute kidney injury Scribe Attestation The scribe's documentation has been prepared under my direction and personally reviewed by me in its entirety. I confirm that the note above accurately reflects all work, treatment, procedures, and medical decision making performed by me. Departure Information Dispostion Transfer Acute Care Facility Referrals Christina Tineo, C.R.N.P (PCP) Forms HOME CARE DOCUMENTATION FORM, IMPORTANT VISIT INFORMATION Patient Instructions My [facility] Health Problem Qualifiers Additional Impressions: Bilious emesis Nausea presence: with nausea Qualified Codes: R11.14 - Bilious vomiting Post-operative wound abscess Encounter type: initial encounter Qualified Codes: T81.4XXA - Infection following a procedure, initial encounter
[2017-11-01] MEDS ORDERED: OPTIRAY 320 IV PRN (10:00)
--- NOTE | 2017-11-01 10:10 | DIAGNOSTIC IMAGING REPORT ---
SINGLE VIEW CHEST CLINICAL HISTORY: Sepsis. Vomiting. FINDINGS: 2 AP, portable, upright chest radiographs are compared to study dated 03/23/2016 and correlated with chest CT dated 09/18/2017. The examination is degraded by portable technique and patient rotation. The heart is top normal for projection. The pulmonary vasculature is noncongested. Chronic interstitial thickening is similar to previous. No airspace consolidation or large pleural effusion is identified. Dependent atelectasis is observed. No pneumothorax is seen. The skeletal structures are osteopenic. There are numerous healed left-sided rib fractures. IMPRESSION: No acute cardiopulmonary abnormality. Electronically signed by: William Silva M.D. 11/01/2017 10:08 AM Dictated Date/Time: 11/01/2017 10:07 AM
[2017-11-01 10:34] LABS: BASO % 0.2 %; BASO ABS # 0.03 K/uL (0-0.2); EOS % 0.7 %; HEMATOCRIT 42.5 % (37-47); HEMOGLOBIN 15.1 g/dL (12.0-16.0); IG# 0.08 K/uL (0.00-0.02); LYMPH % 14.8 %; LYMPH ABS # 2.22 K/uL (1.2-3.4); MEAN CELL VOLUME 84.8 fL (80-100); MEAN CORPUSCULAR HEMOGLOBIN 30.1 pg (25-34); MEAN CORPUSCULAR HGB CONC 35.5 g/dl (32-36); MEAN PLATELET VOLUME 9.8 fL (7.4-10.4); MONO % 8.3 %; MONO ABS # 1.25 K/uL (0.11-0.59); NEUT % 75.5 %; NEUT ABS # 11.32 K/uL (1.4-6.5); PLATELET COUNT 519 K/uL (130-400); RED CELL DISTRIBUTION WIDTH CV 13.9 % (11.5-14.5); RED CELL DISTRIBUTION WIDTH SD 42.6 fL (36.4-46.3)
[2017-11-01 10:47] LABS: PTT PATIENT 26.8 SECONDS (21.0-31.0)
[2017-11-01 10:54] LABS: ALBUMIN 4.4 gm/dl (3.4-5.0); ALT/SGPT 22 U/L (12-78); AST/SGOT 11 U/L (15-37); BLOOD UREA NITROGEN 23 mg/dl (7-18); CALCIUM 10.7 mg/dl (8.5-10.1); CARBON DIOXIDE 28 mmol/L (21-32); CREATININE 2.84 mg/dl (0.60-1.20); GLUCOSE 111 mg/dl (70-99); LIPASE 157 U/L (73-393); POTASSIUM 3.3 mmol/L (3.5-5.1); SODIUM 132 mmol/L (136-145)
[2017-11-01] MEDS ORDERED: ENOX30IN4 SQ (10:54)
[2017-11-01] MEDS ORDERED: CMP5 PO (10:54)
[2017-11-01 10:57] LABS: ALKALINE PHOSPHATASE 107 U/L (45-117); CKMB < 0.5 ng/ml (0.5-3.6); PHOSPHORUS 3.4 mg/dl (2.5-4.9); TOTAL PROTEIN 8.9 gm/dl (6.4-8.2)
[2017-11-01] MEDS ORDERED: SODIUM CHLORIDE 0.9% 1000ML 1,000 ML IV STA ×2 (10:57→12:22)
--- NOTE | 2017-11-01 11:30 | DIAGNOSTIC IMAGING REPORT ---
CT SCAN OF THE ABDOMEN AND PELVIS WITHOUT IV CONTRAST CLINICAL HISTORY: Hypotension. Recent hysterectomy. COMPARISON STUDY: Abdominal CT dated 09/18/2017. TECHNIQUE: CT scan of the abdomen and pelvis is performed from the lung bases to the proximal femora. Images are reviewed in the axial, sagittal, and coronal planes. IV contrast was not administered for this examination as per the referring clinician. Note that the examination was performed in suboptimal fashion without oral and IV contrast. A dose lowering technique was utilized adhering to the principles of ALARA. CT DOSE: 1379.61 mGy.cm FINDINGS: Lung bases: The heart is normal in size and without pericardial effusion. The lung bases are clear. There is a tiny hiatal hernia. Liver: The unenhanced liver is top normal in size and demonstrates diffusely diminished attenuation consistent with hepatic steatosis. Fatty sparing is seen adjacent to gallbladder fossa. There is no intrahepatic biliary ductal dilatation. A coarse calcification is noted in the right lobe of liver. Gallbladder: Calcified gallstones are identified. There is no CT evidence of acute cholecystitis. Spleen: Normal in size and attenuation. There is a calcified splenic granuloma. Pancreas: Unenhanced pancreas is mildly atrophic and grossly unremarkable. Adrenal glands: Unremarkable. Kidneys: The unenhanced kidneys are normal in size and without hydronephrosis. Foci of cortical scarring are seen in the left upper pole. There are no renal calculi identified. There is no evidence of contour deforming renal mass lesion. Abdominal vasculature: The abdominal aorta is normal in course and caliber noting moderate to advanced atherosclerotic calcification. Bowel: The stomach is distended and fluid-filled. The proximal small bowel loops are distended and fluid-filled measuring up to 3.6 cm in diameter. A transition point suggested along the ventral abdominal wall deep to the incision site on image were 205, and the appearance is consistent with a high-grade small bowel obstruction. No focally thick walled small bowel obstruction identified. There is no pneumatosis intestinalis or portal venous gas. The distal small bowel and colon are decompressed. There are scattered colonic diverticula without CT evidence of acute diverticulitis. The appendix is not identified and reported surgically absent. Peritoneum: There is no intraperitoneal free air. There is trace free fluid in the pelvis. A midline surgical scar and skin clips are noted. Foci of induration and gas within the ventral abdominal pannus are likely related to recent surgery. Lymphadenopathy: No pathologically enlarged lymph nodes are identified. Stranding and surgical clips are seen along the left iliac chain. Pelvic viscera: Although decompressed, the bladder wall appears thickened and there is pericystic inflammation. The uterus is surgically absent. There is a 4.6 x 3.1 cm gas and fluid containing collection along the left pelvic sidewall seen on axial image #313. Skeletal structures: The skeletal structures are osteopenic. Moderate lumbosacral spondylosis is observed. There is grade 1 anterolisthesis at L4-L5. No lytic or blastic lesions are seen. There are healed left posterior rib fractures. IMPRESSION: 1. Suboptimal examination without oral and IV contrast. 2. Findings are consistent with a high-grade small bowel obstruction. A transition point is identified in the ventral abdominal midline deep to the incision site and this is likely related to adhesions. 3. There are changes of interval hysterectomy is compared to 09/18/2017. 4. There is a gas and fluid containing collection identified along the left pelvic sidewall. This measures 4.6 x 3.1 cm and is highly concerning for abscess. 5. Although decompressed, the bladder wall is thickened and there is pericystic inflammation. Correlate clinically and with urinalysis for evidence of cystitis. 6. Cholelithiasis. 7. Hepatic steatosis. 8. Additional findings as above. Electronically signed by: William Silva M.D. 11/01/2017 11:28 AM Dictated Date/Time: 11/01/2017 11:13 AM
[2017-11-01] MEDS ORDERED: VANCOMYCIN INJ 2,000 MG in SODIUM CHLORIDE 0.9% 500ML 500 ML IV SCH (12:17)
[2017-11-01] MEDS ORDERED: VANCOMYCIN INJ 2,000 MG in SODIUM CHLORIDE 0.9% 250ML 250 ML IV STA (12:17)
[2017-11-01] MEDS ORDERED: CEFTRIAXONE SOD INJ 1 GM ADDVIAL IV STA (12:17)
[2017-11-01] MEDS ORDERED: VANCOMYCIN CONSULT ACTIVE PRN (12:30)
[2017-11-01] MEDS ORDERED: PROMETHAZINE HCL INJ 25 MG in SODIUM CHLORIDE 0.9% 50ML 50 ML IV STA (15:58)
[2017-11-01] MEDS ORDERED: ALBUTEROL HFA 8 GM INHALER INH PRN (17:30)
[2017-11-01] MEDS ORDERED: ONDANSETRON INJ 2 MG/ML 2 ML VIAL IV PRN (17:30)
--- NOTE | 2017-11-01 17:40 | Medical Consult ---
Consultation Date of Consultation: Nov 01, 2017. Attending Physician: Reason for Consultation: 10 days s/p Hysterectomy with SBO obstruction and abscess on imaging. History of Present Illness 56-year-old female 10 days s/p total hysterectomy at [facility]. Patient states that she since her day of discharge from [place] she has felt increase fatigue, nausea, and abdominal discomfort. She presented to ED today after nausea and vomiting would not stop. She reports chills and subjective fevers at home. Patient reports that bowel movements have been loose. Last bowel movement was yesterday morning 3AM. Imaging in ED- CT abdomen and pelvis 1. Suboptimal examination without oral and IV contrast. 2. Findings are consistent with a high-grade small bowel obstruction. A transition point is identified in the ventral abdominal midline deep to the incision site and this is likely related to adhesions. 3. There are changes of interval hysterectomy is compared to 09/18/2017. 4. There is a gas and fluid containing collection identified along the left pelvic sidewall. This measures 4.6 x 3.1 cm and is highly concerning for abscess. 5. Although decompressed, the bladder wall is thickened and there is pericystic inflammation. Correlate clinically and with urinalysis for evidence of cystitis. 6. Cholelithiasis. 7. Hepatic steatosis. Past Medical/Surgical History Medical Problems: (1) Acute kidney injury Status: Acute (2) Bilious emesis Status: Acute (3) Post-operative wound abscess Status: Acute (4) SBO (small bowel obstruction) Status: Acute Family History No pertinent family history Social History Smoking Status: Current Every Day Smoker Drug Use: none Marital Status: Housing Status: other Occupation Status: unemployed Allergies Coded Allergies: Amoxicillin (Verified Allergy, Intermediate, HIVES, 09/18/17) Clavulanic Acid (Verified Allergy, Intermediate, HIVES, 09/18/17) Codeine (Verified Adverse Reaction, Intermediate, DIZZY, VOMIT, 09/18/17) Morphine (Verified Adverse Reaction, Intermediate, VOMIT, 09/18/17) Current Inpatient Medications Current Inpatient Medications Medications (Trade) Dose Ordered Sig/Faheem Route Start Time Stop Time Status Last Admin Dose Admin Ioversol (Optiray 320) 100 ml UD PRN IV 11/01/17 10:00 11/05/17 09:59 Vancomycin HCl 2000 mg/Sodium Chloride 540 ml @ 200 mls/hr TODAY@1217 IV 11/01/17 12:17 11/01/17 18:00 11/01/17 13:34 200 MLS/HR Review of Systems Constitutional: + fever, + chills, + sweats, + fatigue Abdomen: + pain, + nausea, + vomiting Physical Exam Date Time Temp Pulse Resp B/P (MAP) Pulse Ox O2 Delivery O2 Flow Rate FiO2 11/01/17 16:03 99 22 134/60 95 Room Air 11/01/17 14:36 89 20 159/82 96 Room Air 11/01/17 14:08 172/74 11/01/17 13:35 88 117/71 98 Room Air 11/01/17 13:10 89 20 149/89 98 Room Air 11/01/17 11:30 36.8 92 20 125/77 97 Room Air 11/01/17 10:12 95 Room Air 11/01/17 09:44 102/69 11/01/17 09:31 36.5 107 24 88/67 95 Room Air General Appearance: WD/WN, no apparent distress Head: normocephalic, atraumatic Abdomen/GI: + tenderness (at incision site- midline incision, eduardo in place. ), + pertinent finding (midline healing incision, eduardo in place. ) Laboratory Results Last 24 Hours Test 11/01/17 10:19 White Blood Count 15.00 K/uL Red Blood Count 5.01 M/uL Hemoglobin 15.1 g/dL Hematocrit 42.5 % Mean Corpuscular Volume 84.8 fL Mean Corpuscular Hemoglobin 30.1 pg Mean Corpuscular Hemoglobin Concent 35.5 g/dl Platelet Count 519 K/uL Mean Platelet Volume 9.8 fL Neutrophils (%) (Auto) 75.5 % Lymphocytes (%) (Auto) 14.8 % Monocytes (%) (Auto) 8.3 % Eosinophils (%) (Auto) 0.7 % Basophils (%) (Auto) 0.2 % Neutrophils # (Auto) 11.32 K/uL Lymphocytes # (Auto) 2.22 K/uL Monocytes # (Auto) 1.25 K/uL Eosinophils # (Auto) 0.10 K/uL Basophils # (Auto) 0.03 K/uL RDW Standard Deviation 42.6 fL RDW Coefficient of Variation 13.9 % Immature Granulocyte % (Auto) 0.5 % Immature Granulocyte # (Auto) 0.08 K/uL Erythrocyte Sedimentation Rate 56 mm/hr Prothrombin Time 10.3 SECONDS Prothromb Time International Ratio 1.0 Activated Partial Thromboplast Time 26.8 SECONDS Partial Thromboplastin Ratio 1.0 Sodium Level 132 mmol/L Potassium Level 3.3 mmol/L Chloride Level 91 mmol/L Carbon Dioxide Level 28 mmol/L Anion Gap 13.0 mmol/L Blood Urea Nitrogen 23 mg/dl Creatinine 2.84 mg/dl Est Creatinine Clear Calc Drug Dose 26.2 ml/min Estimated GFR () 20.4 Estimated GFR (Non- 17.6 BUN/Creatinine Ratio 8.2 Random Glucose 111 mg/dl Calcium Level 10.7 mg/dl Phosphorus Level 3.4 mg/dl Magnesium Level 2.0 mg/dl Total Bilirubin 0.8 mg/dl Aspartate Amino Transf (AST/SGOT) 11 U/L Alanine Aminotransferase (ALT/SGPT) 22 U/L Alkaline Phosphatase 107 U/L Total Creatine Kinase 20 U/L Creatine Kinase MB < 0.5 ng/ml Creatine Kinase MB Ratio Troponin I < 0.015 ng/ml C-Reactive Protein 7.74 mg/dl Total Protein 8.9 gm/dl Albumin 4.4 gm/dl Globulin 4.5 gm/dl Albumin/Globulin Ratio 1.0 Lipase 157 U/L Assessment & Plan 56-year-old 10 days s/p hysterectomy, [facility]. CT scan illustrates high-grade SBO with a gas and fluid containing collection identified along the left pelvic sidewall. This measures 4.6 x 3.1 cm and is highly concerning for abscess. NG tube in place. Nausea improved. IV abx IR drainage of abdominal abscess. Recommend patient be transferred to [facility] where originally surgery was completed. as above. pt in a sub-optimal time frame post op for repeat surgery as inflammation/adhesions would be peaking. recommend transfer to original primary surgeon. pt clinically stable. rec NGT/IVF/antibiotics and IR drainage of abcess no need for emergent OR will follow along to ensure patient remains stable until transfer
[2017-11-01] MEDS ORDERED: ACETAMINOPHEN IV 650 MG in EMPTY BAG 0 ML IV PRN (18:00)
[2017-11-01] MEDS ORDERED: HYDROmorphone INJ 0.5 MG/0.5 ML SYR IV PRN (18:00)
[2017-11-01] MEDS ORDERED: HYDROmorphone INJ 1 MG/ML SYR IV PRN (18:00)
[2017-11-01] MEDS ORDERED: LORAZEPAM 2 MG/ML 1 ML VIAL IV PRN (18:00)
[2017-11-01] MEDS ORDERED: METOPROLOL TARTRATE 1 MG/ML VIAL IV PRN (18:00)
[2017-11-01] MEDS ORDERED: FAMOTIDINE IV INJ 20 MG in DEXTROSE 5% 100ML 100 ML IV SCH (18:15)
[2017-11-01 19:03] VITALS: BP 133/80; PULSE 92; TEMP 37.6; O2SAT 94; Ht 162.6 cm; Wt 109.5 kg
[2017-11-01] MEDS ORDERED: NSS + 20MEQ KCL 1000ML 1,000 ML IV SCH (19:18)
[2017-11-01] MEDS ORDERED: LORAZEPAM INJ 0.5 MG in SYRINGE 0.75 ML IV PRN (19:45)
[2017-11-01 20:00] VITALS: BP 134/79; PULSE 92; TEMP 37.2; O2SAT 92
[2017-11-01] MEDS: METRONIDAZOLE / NSS 500 MG in PREMIXED NSS 100 ML IV SCH (20:16)
[2017-11-01] MEDS: METOPROLOL TARTRATE 1 MG/ML VIAL IV. SCH (20:17)
[2017-11-01] MEDS: CIPROFLOXACIN / D5W 400 MG in PREMIXED IN D5W 200 ML IV SCH (21:21)
[2017-11-01] MEDS: FAMOTIDINE IV INJ 20 MG in SYRINGE 3 ML IV SCH (21:22)
[2017-11-01] MEDS: HEPARIN SOD 5000 UNIT/0.5 ML CARP SQ SCH (21:23)
--- NOTE | 2017-11-01 21:34 | History and Physical ---
History & Physical Date & Time of Service: Nov 01, 2017 at 21:29 Chief Complaint: SBO Primary Care Physician: Christina Tineo C.R.N.P History of Present Illness Patient's 48-year-old female presents to the ER with abdominal pain and was discovered by ER physician to have a high-grade small bowel obstruction which appeared to be entrapped in the midline lower abdominal wound from a recent total abdominal hysterectomy performed at [facility] in [place]. Is also concern on CT scan for intra-abdominal abscess associated with this. The patient has an NG tube in place which is draining a dark black material she however feels much better since the NG tube was placed. Patient states that her abdominal hysterectomy was for a "spot" with a solid one of her ovaries. The ER physician informed me that he spoke to her local general surgery team which felt that the patient should be transferred to [facility] for continued postoperative care the emergency room physician told me that as he does not have any beds at this point in time and requested I admit the patient to our service understanding that we are not a surgical service and only a medical service. Emergency room physician did not contact local [facility] gynecology to ask for advice. 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 She stated however that we do not usually perform abdominal hysterectomy is here and also recommended the patient be transferred to [facility] for postoperative care I spoke to Dr. Rebolledo distribution dispatcher for general surgery he also stated that he would be glad to help with the patient decompensates but due to the likely degree of inflammation present this would be a complex surgery and recommended bowel rest antibiotics and medical management of pain and nausea he says if the patient does get into trouble he prefer to have the phlebotomy director also available to co-manage his case if need be When I evaluated the patient she was much more comfortable her abdomen is soft there is no acute she understands the issues with the facility being full and is agreeable to staying our facility with hopeful eventual transfer back to [facility] After the patient was admitted to our facility and on her medical floor I Phoned [facility] and I was informed that the emergency room physician was informed that a Dr. Edmondson has accepted the patient in transfer to [facility] however bed availability cannot be confirmed but the patient was in line to be transferred once a bed was available, this was not communicated to me at the time of admission Past Medical/Surgical History Medical Problems: (1) Chronic back pain Status: Chronic (2) Chronic obstructive lung disease Status: Chronic Family History No pertinent family history Social History Smoking Status: Current Every Day Smoker Drug Use: none Marital Status: Housing status: other Occupational Status: unemployed Immunizations History of Influenza Vaccine: Unknown History of Tetanus Vaccine?: Unknown History of Pneumococcal: Unknown History of Hepatitis B Vaccine: Unknown Multi-Drug Resistant Organisms History of MDRO: No Allergies Coded Allergies: Amoxicillin (Verified Allergy, Intermediate, HIVES, 09/18/17) Clavulanic Acid (Verified Allergy, Intermediate, HIVES, 09/18/17) Codeine (Verified Adverse Reaction, Intermediate, DIZZY, VOMIT, 09/18/17) Morphine (Verified Adverse Reaction, Intermediate, VOMIT, 09/18/17) Home Medications Scheduled Budesonide/Formoterol Fumarate (Symbicort 160/4.5 Inhaler ), 2 PUFFS INH QAM Enoxaparin (Lovenox), Unknown Dose SQ DAILY Furosemide (Lasix), 20 MG PO 2XWK Gabapentin (Neurontin), 300 MG PO TID Gabapentin (Neurontin), 600 MG PO TID Lisinopril (Zestril), 10 MG PO QAM Metoprolol Tartrate (Lopressor) (Lopressor), 25 MG PO BID Montelukast Sodium (Singulair), 10 MG PO QPM Pantoprazole (Protonix), 40 MG PO QAM Tiotropium [place] (Spiriva Handihaler), 1 CAP INH QAM Scheduled PRN Albuterol Hfa (Ventolin Hfa), 2-4 PUFFS INH Q6H PRN for Shortness of Breath Albuterol Sulfate (Albuterol Sulfate), 1 VIAL NEB Q4 PRN for Shortness of Breath Ibuprofen (Motrin), 800 MG PO Q8H PRN for Pain Prochlorperazine Maleate (Prochlorperazine Maleate), Unknown Dose PO DIRECTED PRN for Nausea Tramadol (Ultram), 50-100 MG PO BID PRN for Pain Review of Systems ROS: well nourished well developed. Moderately obese No double vision blurry vision No problems with speech or swallowing No palpitations, chest pain or pressure No Wheezing or breathing issues Patient has had persistent abdominal pain with nausea and vomiting her last bowel movement was 3 AM and she has some pain associated with her abdominal incision No burning urine urine frequency or changes in color No focal joint pain or muscle pain No skin rashes or oral lesions No unusual bruising or bleeding No focused back pain or numbness or loss of strength No changes in memory or confusion Physical Exam Vital Signs Date Time Temp Pulse Resp B/P (MAP) Pulse Ox O2 Delivery O2 Flow Rate FiO2 11/01/17 20:17 92 134/79 11/01/17 19:03 37.6 92 20 133/80 94 Room Air 11/01/17 18:40 93 18 108/50 94 Room Air 11/01/17 17:35 98 16 134/76 97 Room Air 11/01/17 16:03 99 22 134/60 95 Room Air 11/01/17 14:36 89 20 159/82 96 Room Air 11/01/17 14:08 172/74 11/01/17 13:35 88 117/71 98 Room Air 11/01/17 13:10 89 20 149/89 98 Room Air 11/01/17 11:30 36.8 92 20 125/77 97 Room Air 11/01/17 10:12 95 Room Air 11/01/17 09:44 102/69 11/01/17 09:31 36.5 107 24 88/67 95 Room Air General Appearance: WD/WN, + mild distress Head: normocephalic, atraumatic Eyes: normal inspection, sclerae normal Neck: supple, no JVD Respiratory/Chest: chest non-tender, lungs clear, normal breath sounds Cardiovascular: regular rate, rhythm, no murmur Abdomen/GI: + tenderness, + abnormal bowel sounds, + distended, + guarding, + pertinent finding (She is a healing midline abdominal wound there is some mild tenderness just to the left side of the umbilicus this is not reducible it appears consistent with possible hernia) Back: normal inspection, no CVA tenderness Extremities/Musculoskelatal: no pedal edema (However the patient has changes of chronic venous stasis to her lower extremities with sort of a firmness and a discoloration) Neurologic/Psych: alert, oriented x 3 Diagnostics Laboratory Results Results Past 24 Hours Test 11/01/17 10:19 Range/Units White Blood Count 15.00 4.8-10.8 K/uL Red Blood Count 5.01 4.2-5.4 M/uL Hemoglobin 15.1 12.0-16.0 g/dL Hematocrit 42.5 37-47 % Mean Corpuscular Volume 84.8 80-100 fL Mean Corpuscular Hemoglobin 30.1 25-34 pg Mean Corpuscular Hemoglobin Concent 35.5 32-36 g/dl Platelet Count 519 130-400 K/uL Mean Platelet Volume 9.8 7.4-10.4 fL Neutrophils (%) (Auto) 75.5 % Lymphocytes (%) (Auto) 14.8 % Monocytes (%) (Auto) 8.3 % Eosinophils (%) (Auto) 0.7 % Basophils (%) (Auto) 0.2 % Neutrophils # (Auto) 11.32 1.4-6.5 K/uL Lymphocytes # (Auto) 2.22 1.2-3.4 K/uL Monocytes # (Auto) 1.25 0.11-0.59 K/uL Eosinophils # (Auto) 0.10 0-0.5 K/uL Basophils # (Auto) 0.03 0-0.2 K/uL RDW Standard Deviation 42.6 36.4-46.3 fL RDW Coefficient of Variation 13.9 11.5-14.5 % Immature Granulocyte % (Auto) 0.5 % Immature Granulocyte # (Auto) 0.08 0.00-0.02 K/uL Erythrocyte Sedimentation Rate 56 0-21 mm/hr Prothrombin Time 10.3 9.0-12.0 SECONDS Prothromb Time International Ratio 1.0 0.9-1.1 Activated Partial Thromboplast Time 26.8 21.0-31.0 SECONDS Partial Thromboplastin Ratio 1.0 Sodium Level 132 136-145 mmol/L Potassium Level 3.3 3.5-5.1 mmol/L Chloride Level 91 98-107 mmol/L Carbon Dioxide Level 28 21-32 mmol/L Anion Gap 13.0 3-11 mmol/L Blood Urea Nitrogen 23 7-18 mg/dl Creatinine 2.84 0.60-1.20 mg/dl Est Creatinine Clear Calc Drug Dose 26.2 ml/min Estimated GFR () 20.4 Estimated GFR (Non- 17.6 BUN/Creatinine Ratio 8.2 10-20 Random Glucose 111 70-99 mg/dl Calcium Level 10.7 8.5-10.1 mg/dl Phosphorus Level 3.4 2.5-4.9 mg/dl Magnesium Level 2.0 1.8-2.4 mg/dl Total Bilirubin 0.8 0.2-1 mg/dl Aspartate Amino Transf (AST/SGOT) 11 15-37 U/L Alanine Aminotransferase (ALT/SGPT) 22 12-78 U/L Alkaline Phosphatase 107 45-117 U/L Total Creatine Kinase 20 26-192 U/L Creatine Kinase MB < 0.5 0.5-3.6 ng/ml Creatine Kinase MB Ratio 0-3.0 Troponin I < 0.015 0-0.045 ng/ml C-Reactive Protein 7.74 0-0.29 mg/dl Total Protein 8.9 6.4-8.2 gm/dl Albumin 4.4 3.4-5.0 gm/dl Globulin 4.5 2.5-4.0 gm/dl Albumin/Globulin Ratio 1.0 0.9-2 Lipase 157 73-393 U/L Microbiology Results 11/01/17 Blood Culture, Received Pending 11/01/17 Blood Culture, Received Pending Diagnostic Radiology CT scan of the abdomen; IMPRESSION: 1. Suboptimal examination without oral and IV contrast. 2. Findings are consistent with a high-grade small bowel obstruction. A transition point is identified in the ventral abdominal midline deep to the incision site and this is likely related to adhesions. 3. There are changes of interval hysterectomy is compared to 09/18/2017. 4. There is a gas and fluid containing collection identified along the left pelvic sidewall. This measures 4.6 x 3.1 cm and is highly concerning for abscess. 5. Although decompressed, the bladder wall is thickened and there is pericystic inflammation. Correlate clinically and with urinalysis for evidence of cystitis. 6. Cholelithiasis. 7. Hepatic steatosis. Impression Assessment and Plan 48-year-old female with high-grade small bowel obstruction and intra-abdominal abscess. I am very uncomfortable caring for this patient in our facility however emergency room physician did request a care for this patient because disposition to keep the patient in the ER until a bed was available did not seem to be an acceptable solution although was not clearly voiced to me in those exact words. Our local surgery team did not feel comfortable keeping the patient on their service and her local gynecology team did not feel comfortable taking the patient on their service however in the spirit of providing good patient care I will have the patient on my service keep her n.p.o. with an NG tube and Glaser hydrated with IV fluids containing potassium to repeat her hypokalemia control her pain with hydrocodone and her nausea with Zofran we will monitor serial labs watching for signs of acidosis from possible infarcted bowel and sepsis from her likely intra-abdominal abscess. With the information of the accepting physician at [facility] will prepare her for hopeful eventual discharge for surgical correction of what seems to be a very concerning surgical problem of high-grade small bowel obstruction and a very recent postoperative patient. Use heparin therapy for DVT prevention We will offer the patient a nicotine patch for her persistent smoking Given her hypertension she typically takes metoprolol will have her a telemetry unit for the ability to administer intravenous metoprolol if needed in the case she does have rebound tachycardia from beta jimbo withdrawal Advanced Directives Existing Living Will: No Existing Power of Vertical Borer: No VTE Prophylaxis VTE Risk Assessment Done? Y/N: Yes Risk Level: Moderate
--- NOTE | 2017-11-01 21:38 | Discharge Instructions ---
Discharge Instructions Date of Service Nov 01, 2017. Admission Reason for Admission: SBO Discharge Discharge Diagnosis / Problem: Small bowel obstruction and intra-abdominal abscess Discharge Goals Goal(s): Decrease discomfort, Improve disease control Activity Recommendations Activity Limitations: as noted below Lifting Limitations: gradually increase as tolerated . Current Hospital Diet Patient's current hospital diet: Discharge Diet Recommended Diet: N/A Pending Studies Studies pending at discharge: yes List of pending studies: Blood cultures Laboratory Results Lipid Panel Test 09/28/17 11:55 Range/Units Triglycerides Level 138 0-150 mg/dl Cholesterol Level 192 0-200 mg/dl HDL Cholesterol 41 mg/dl Cholesterol/HDL Ratio 4.7 LDL Cholesterol, Calculated 123 mg/dl Medical Emergencies . Who to Call and When: Medical Emergencies: If at any time you feel your situation is an emergency, please call 911 immediately. . Non-Emergent Contact Non-Emergency issues call your: Primary Care Provider, Surgeon Call Non-Emergent contact if: temperature is above 101, your pain is unusual for you . . "Provider Documentation" section prepared by Ten Rasmussen. . VTE Core Measure Inpt VTE Proph given/why not?: Unfractionated heparin SQ
[2017-11-02] VITALS (10 sets, daily range): BP systolic 110–131; BP diastolic 66–83; PULSE 71–83; TEMP 36.6–37.1; O2SAT 93–99
[2017-11-02] MEDS: METOPROLOL TARTRATE 1 MG/ML VIAL IV. SCH ×6 (01:04→20:55)
[2017-11-02] MEDS: METRONIDAZOLE / NSS 500 MG in PREMIXED NSS 100 ML IV SCH ×3 (04:26→20:55)
--- NOTE | 2017-11-02 06:37 | Clinical Documentation Query ---
CLINICAL DOCUMENTATION QUERY a 48 YO female admitted with a SBO and intra-abdominal mass. Creatinine level is 2.84 with a baseline of 0.84 on 09/28/17. In your clinical opinion is this patient being managed for: ( ) Acute kidney failure (xx ) Not Agree, according to Dr Moody the head of utilization review, many elevated CR on admission,if reverse quickly are not AKF bur are ATN with dehydration and we as an institution are becoming penalized and have to pay money back for erroneously documentating this diagnosis ( ) Other explanation of clinical findings (Please Explain) ( ) Unable to determine (Please Define) ( ) Need to Discuss The medical record reflects the following clinical findings, treatment, and risk factors. Clinical Indicators: As above Treatment: Serial PRPs Risk Factors: S/P surgical intervention Please clarify and document your clinical opinion in the progress notes and discharge summary. Terms such as "probable", "suspected", "likely", "questionable", "possible", or "still to be ruled out" are acceptable. IF IN AGREEMENT, YOU MUST DOCUMENT ABOVE DIAGNOSTIC STATEMENT IN DAILY PROGRESS NOTES AND DISCHARGE SUMMARY. This document is not part of the patient's record. Thank You, Michelle Coleman RN [phone]
--- NOTE | 2017-11-02 07:16 | Surgery Progress Note ---
Surgery Progress Note Date of Service Nov 02, 2017. Subjective Post OP Day: HD #1 + feeling well, + flatus, + pain controlled, + diet (NPO), No bowel movement, No nausea, No vomiting feeling well, NGT in place on LIWS. Reports some mild RLQ pain overnight. No other changes from yesterday. Objective Vital Signs: Date Time Temp Pulse Resp B/P (MAP) Pulse Ox O2 Delivery O2 Flow Rate FiO2 11/02/17 04:00 94 Room Air 11/02/17 04:00 77 95/68 11/02/17 03:42 37.0 77 17 124/66 (85) 94 Room Air 11/02/17 01:04 77 119/71 11/02/17 00:07 36.7 83 17 110/69 (83) 93 Room Air 11/02/17 00:01 93 Room Air 11/01/17 20:17 92 134/79 11/01/17 20:00 37.2 92 20 134/79 (97) 92 Room Air 11/01/17 20:00 92 Room Air 11/01/17 19:03 37.6 92 20 133/80 94 Room Air 11/01/17 18:40 93 18 108/50 94 Room Air 11/01/17 17:35 98 16 134/76 97 Room Air 11/01/17 16:03 99 22 134/60 95 Room Air 11/01/17 14:36 89 20 159/82 96 Room Air 11/01/17 14:08 172/74 11/01/17 13:35 88 117/71 98 Room Air 11/01/17 13:10 89 20 149/89 98 Room Air 11/01/17 11:30 36.8 92 20 125/77 97 Room Air 11/01/17 10:12 95 Room Air 11/01/17 09:44 102/69 11/01/17 09:31 36.5 107 24 88/67 95 Room Air General Appearance: WD/WN, no apparent distress Head: normocephalic, atraumatic Neck: trachea midline Respiratory/Chest: no respiratory distress, no accessory muscle use Abdomen: non distended, soft, no organomegaly, no pulsatile mass, + tenderness (Incisional, Mild RLQ) Incision(s): clean, dry, intact, no erythema, no drainage Laboratory Results: Results Past 24 Hours Test 11/01/17 10:19 11/01/17 21:30 11/02/17 07:00 Range/Units White Blood Count 15.00 4.8-10.8 K/uL Red Blood Count 5.01 4.2-5.4 M/uL Hemoglobin 15.1 12.0-16.0 g/dL Hematocrit 42.5 37-47 % Mean Corpuscular Volume 84.8 80-100 fL Mean Corpuscular Hemoglobin 30.1 25-34 pg Mean Corpuscular Hemoglobin Concent 35.5 32-36 g/dl Platelet Count 519 130-400 K/uL Mean Platelet Volume 9.8 7.4-10.4 fL Neutrophils (%) (Auto) 75.5 % Lymphocytes (%) (Auto) 14.8 % Monocytes (%) (Auto) 8.3 % Eosinophils (%) (Auto) 0.7 % Basophils (%) (Auto) 0.2 % Neutrophils # (Auto) 11.32 1.4-6.5 K/uL Lymphocytes # (Auto) 2.22 1.2-3.4 K/uL Monocytes # (Auto) 1.25 0.11-0.59 K/uL Eosinophils # (Auto) 0.10 0-0.5 K/uL Basophils # (Auto) 0.03 0-0.2 K/uL RDW Standard Deviation 42.6 36.4-46.3 fL RDW Coefficient of Variation 13.9 11.5-14.5 % Immature Granulocyte % (Auto) 0.5 % Immature Granulocyte # (Auto) 0.08 0.00-0.02 K/uL Erythrocyte Sedimentation Rate 56 0-21 mm/hr Prothrombin Time 10.3 9.0-12.0 SECONDS Prothromb Time International Ratio 1.0 0.9-1.1 Activated Partial Thromboplast Time 26.8 21.0-31.0 SECONDS Partial Thromboplastin Ratio 1.0 Sodium Level 132 136-145 mmol/L Potassium Level 3.3 3.5-5.1 mmol/L Chloride Level 91 98-107 mmol/L Carbon Dioxide Level 28 21-32 mmol/L Anion Gap 13.0 3-11 mmol/L Blood Urea Nitrogen 23 7-18 mg/dl Creatinine 2.84 0.60-1.20 mg/dl Est Creatinine Clear Calc Drug Dose 26.2 ml/min Estimated GFR () 20.4 Estimated GFR (Non- 17.6 BUN/Creatinine Ratio 8.2 10-20 Random Glucose 111 70-99 mg/dl Calcium Level 10.7 8.5-10.1 mg/dl Phosphorus Level 3.4 2.5-4.9 mg/dl Magnesium Level 2.0 1.8-2.4 mg/dl Total Bilirubin 0.8 0.2-1 mg/dl Aspartate Amino Transf (AST/SGOT) 11 15-37 U/L Alanine Aminotransferase (ALT/SGPT) 22 12-78 U/L Alkaline Phosphatase 107 45-117 U/L Total Creatine Kinase 20 26-192 U/L Creatine Kinase MB < 0.5 0.5-3.6 ng/ml Creatine Kinase MB Ratio 0-3.0 Troponin I < 0.015 0-0.045 ng/ml C-Reactive Protein 7.74 0-0.29 mg/dl Total Protein 8.9 6.4-8.2 gm/dl Albumin 4.4 3.4-5.0 gm/dl Globulin 4.5 2.5-4.0 gm/dl Albumin/Globulin Ratio 1.0 0.9-2 Lipase 157 73-393 U/L Urine Color DK YELLOW Urine Appearance TURBID CLEAR Urine pH 5.0 4.5-7.5 Urine Specific [place] 1.028 1.000-1.030 Urine Protein 1+ NEG Urine Glucose (UA) NEG NEG Urine Ketones 1+ NEG Urine Occult Blood 1+ NEG Urine Nitrite NEG NEG Urine Bilirubin 2+ NEG Urine Urobilinogen NEG NEG Urine Leukocyte Esterase TRACE NEG Urine WBC (Auto) 5-10 0-5 /hpf Urine RBC (Auto) 0-4 0-4 /hpf Urine Hyaline Casts (Auto) 0-5 /lpf Urine Epithelial Cells (Auto) >30 0-5 /lpf Urine Bacteria (Auto) 1+ NEG Urine Crystals CALCIUM OXALATE NONE PRSENT Urine Pathogenic Casts 0 /lpf Urine Yeast (Auto) BUDDING NONE PRSENT Microbiology Results 11/01/17 Blood Culture, Received Pending 11/01/17 Blood Culture, Received Pending 11/01/17 Urine Culture, Received Pending Assessment & Plan 56-year-old 10 days s/p hysterectomy, [facility]. CT scan illustrates high-grade SBO with a gas and fluid containing collection identified along the left pelvic sidewall. This measures 4.6 x 3.1 cm and is highly concerning for abscess. Pain controlled, No N/V at this time. NPO. Continue NGT on LIWS, Continue IV abx. Patient to be transferred to [facility] for IR drainage of abdominal abscess - still awaiting bed. Continue medical management per hospitalist team. Will continue to follow until transfer. Please contact with questions or concerns.
[2017-11-02 07:37] LABS: CALCIUM 8.5 mg/dl (8.5-10.1); CREATININE 1.36 mg/dl (0.60-1.20); POTASSIUM 3.1 mmol/L (3.5-5.1)
[2017-11-02] MEDS: FAMOTIDINE IV INJ 20 MG in SYRINGE 3 ML IV SCH ×2 (07:38→20:55)
[2017-11-02] MEDS: HEPARIN SOD 5000 UNIT/0.5 ML CARP SQ SCH ×2 (07:41→21:03)
[2017-11-02 07:49] LABS: HEMATOCRIT 36.4 % (37-47); MEAN CELL VOLUME 87.3 fL (80-100); MEAN CORPUSCULAR HEMOGLOBIN 28.8 pg (25-34); MEAN PLATELET VOLUME 9.1 fL (7.4-10.4); PLATELET COUNT 378 K/uL (130-400); RED CELL DISTRIBUTION WIDTH CV 14.1 % (11.5-14.5); RED CELL DISTRIBUTION WIDTH SD 44.9 fL (36.4-46.3); WHITE BLOOD COUNT 10.42 K/uL (4.8-10.8)
--- NOTE | 2017-11-02 08:04 | GYNECOLOGICAL CONSULTATION ---
DATE OF CONSULTATION: 11/01/2017 REASON FOR CONSULTATION: The patient is status post hysterectomy on 10/22/2017 by [facility] oncologist in [facility] in [place], now with small-bowel obstruction. HISTORY OF PRESENT ILLNESS: The patient is a 56-year-old G3, P3-0-0-3, postmenopausal female who is status post exploratory laparotomy, removal of pelvic mass 20 x 15 cm, total abdominal hysterectomy with bilateral salpingo-oophorectomy, left pelvic and periaortic lymphadenectomy and omentectomy on 10/22/[address] Phillips at [facility] in [place]. She was taken to OR due to recent history of postmenopausal bleeding and pelvic mass. She was found to have complex pelvic mass suggesting ovarian neoplasm. She also has a history of COPD, congestive heart failure with cardiomyopathy, tobacco abuse, hypertension, carotid artery stenosis, class 3 obesity, JASON, peripheral neuropathy. She was discharged 6 days ago and she was planning to be seen next week for a postop check. She was doing well until last Sunday, which was 10/28/2017. Then, she started to become nauseous and vomited on 10/29/2017. Vomiting got worse today and she called [facility] and was recommended to come to the nearest ER. She presented here due to close location. She has been seen by ER physician, medicine and general surgeon, and found to have high small-bowel obstruction and possible pelvic abscess. [facility] oncology in [place] was contacted and transfer was arranged. Due to no beds in [facility], she was admitted here now under medicine for IV antibiotics and NG tube. She has been placed with an NG tube and she is feeling better now. Her nausea is better. Only thing bothering her is her legs, she has a history of restless leg syndrome and neuropathy. She denies any fever, chills, chest pain, shortness of breath, vaginal bleeding. She denies pain in her incision. She has been taking Tylenol only for her pain. She denies any drainage from incision or opening in her incision. PAST MEDICAL HISTORY: As above, history of cardiomyopathy, congestive heart failure, COPD, hypertension, peripheral neuropathy, tobacco use, class 3 obesity and JASON. OBSTETRIC HISTORY: The patient has had 3 spontaneous vaginal deliveries, full term, in the past. GYNECOLOGIC HISTORY: The patient has been menopausal since age 48. Never used hormones. Her last Pap smear was in 2016, no history of abnormal Pap smears. PAST SURGICAL HISTORY: History of lymph node biopsy as a child, appendectomy in 2014 and throat surgery. MEDICATIONS: Lisinopril, gabapentin, vitamin D3, magnesium capsule, tramadol, Tylenol, metoprolol, Symbicort, Ventolin HFA, furosemide, DuoNeb nebulizer, Singulair, aspirin 81 mg daily. ALLERGIES: AUGMENTIN, HIVES AND RASH; CODEINE AND MORPHINE WHICH CAUSE SEVERE VOMITING. PHYSICAL EXAMINATION: GENERAL: The patient is alert and oriented x3. She is in mild distress. VITAL SIGNS: Her blood pressure is 134/76, pulse ox 97, respirations 16, pulse 98. She has an NG tube draining green fluid. CARDIOVASCULAR: S1, S2, RRR. LUNGS: Clear to auscultation bilaterally. ABDOMEN: Soft, nontender, nondistended. Bowel sounds present. Incision clean, dry and intact. [place] intact. There is mild redness around the eduardo but there is no induration or drainage. PELVIC: Perineum intact. No vaginal bleeding. EXTREMITIES: Nontender. No edema. LABORATORY DATA: Blood work, her white count is 15, H&H 15/42, platelets 519. Sedimentation rate is 56. Coagulation: PT, PTT, INR are normal. Sodium 132, potassium 3.3, chloride 91, creatinine 2.84, glucose 112, calcium 10.7, AST 11, ALT 22. CK-MB 0.5. C-reactive protein 7.7. Microbiology: Blood cultures pending. IMAGING: Abdomen and pelvis CT scan findings are consistent with high level small-bowel obstruction. Transition point identified in the ventral abdominal midline, deep through the incision, related adhesions, interval hysterectomy. There is gas-containing collection on Left pelvic sidewall concerning for abscess. Pathology from [facility]: Left adnexal mass: malignant Chuckie tumor, left tube with no pathologic diagnosis. Right tube and ovary, ovary with benign Chuckie tumor, tube with no pathologic diagnosis. Uterus and cervix, no pathologic diagnosis. Left external pelvic nodes, 8 benign lymph nodes. Left periaortic lymph nodes, 3 benign nodes. Portion of omentum negative for malignancy. ASSESSMENT AND PLAN: The patient is a 56-year-old G3, P3-0-0-3, postmenopausal female who is status post exploratory laparotomy and excision of pelvic mass, total abdominal hysterectomy with bilateral salpingo- oophorectomy, left pelvic and periaortic lymphadenectomy and omentectomy on 10/22/2017, now presenting with nausea and vomiting and found to have high small-bowel obstruction and increased white cell count and possible pelvic abscess. Vital signs stable, afebrile. She is feeling better with NG tube and being admitted under medicine for IV antibiotics and general surgery has been consulted. Transfer to [facility] is pending. Plan per admitting team as IV antibiotics and NG tube for now, and reevaluate later. All questions were answered. Thank you for the consultation. KESHIA
[2017-11-02] MEDS ORDERED: MAGNESIUM SULFATE 1GM / D5W 1 GM in PREMIXED IN D5W 100 ML IV ONE (08:30)
[2017-11-02] MEDS ORDERED: BUDESONIDE/FORMOTEROL FUMARATE 160/4.5 60 PUFFS/INHALER INH SCH (09:00)
[2017-11-02] MEDS: POTASSIUM CHLORIDE INJ 40 MEQ in SODIUM CHLORIDE 0.9% 1000ML 1,000 ML IV SCH ×2 (09:21→16:55)
--- NOTE | 2017-11-02 09:24 | Clinical Documentation Query ---
CLINICAL DOCUMENTATION QUERY Thank you for your response. Documentation of ATN with dehydration would be greatly appreciated. A 48 YO female admitted with a SBO and intra-abdominal mass. Creatinine level is 2.84 with a baseline of 0.84 on 09/28/17. In your clinical opinion is this patient being managed for: ( ) Acute kidney failure (xx ) Not Agree, according to Dr Moody the head of utilization review, many elevated CR on admission,if reverse quickly are not AKF bur are ATN with dehydration and we as an institution are becoming penalized and have to pay money back for erroneously documentating this diagnosis ( ) Other explanation of clinical findings (Please Explain) ( ) Unable to determine (Please Define) ( ) Need to Discuss The medical record reflects the following clinical findings, treatment, and risk factors. Clinical Indicators: As above Treatment: Serial PRPs Risk Factors: S/P surgical intervention Please clarify and document your clinical opinion in the progress notes and discharge summary. Terms such as "probable", "suspected", "likely", "questionable", "possible", or "still to be ruled out" are acceptable. Thank You, Michelle Coleman RN [phone]
[2017-11-02] MEDS: POTASSIUM CHLR 10 MEQ / WTR 10 MEQ in PREMIXED WATER 100 ML IV SCH ×3 (10:41→13:46)
[2017-11-02] MEDS ORDERED: NURSING VERBAL MED ORDER ONE (12:15)
--- NOTE | 2017-11-02 12:51 | Surgery Progress Note ---
Surgery Progress Note Date of Service Nov 02, 2017. Subjective pt seen. feeling much better since admission. abdominal pain almost completely resolved. no further nausea since NGT. Objective Vital Signs: Date Time Temp Pulse Resp B/P (MAP) Pulse Ox O2 Delivery O2 Flow Rate FiO2 11/02/17 12:13 77 114/73 11/02/17 11:21 37.1 76 20 114/73 (87) 96 Room Air 11/02/17 08:00 Room Air 11/02/17 07:38 74 110/66 11/02/17 07:37 36.9 74 18 110/66 (81) 98 Room Air 11/02/17 07:31 36.6 81 16 131/83 (99) 98 Room Air 11/02/17 04:00 94 Room Air 11/02/17 04:00 77 95/68 11/02/17 03:42 37.0 77 17 124/66 (85) 94 Room Air 11/02/17 01:04 77 119/71 11/02/17 00:07 36.7 83 17 110/69 (83) 93 Room Air 11/02/17 00:01 93 Room Air 11/01/17 20:17 92 134/79 11/01/17 20:00 37.2 92 20 134/79 (97) 92 Room Air 11/01/17 20:00 92 Room Air 11/01/17 19:03 37.6 92 20 133/80 94 Room Air 11/01/17 18:40 93 18 108/50 94 Room Air 11/01/17 17:35 98 16 134/76 97 Room Air 11/01/17 16:03 99 22 134/60 95 Room Air 11/01/17 14:36 89 20 159/82 96 Room Air 11/01/17 14:08 172/74 11/01/17 13:35 88 117/71 98 Room Air 11/01/17 13:10 89 20 149/89 98 Room Air Physical Exam: nasogastric drainage General Appearance: no apparent distress Head: normocephalic, atraumatic Abdomen: soft, + pertinent finding (mild tenderness diffusely. minimal distenstion) Incision(s): clean, dry, intact, no erythema Laboratory Results: Results Past 24 Hours Test 11/01/17 21:30 11/02/17 07:00 Range/Units Urine Color DK YELLOW Urine Appearance TURBID CLEAR Urine pH 5.0 4.5-7.5 Urine Specific [place] 1.028 1.000-1.030 Urine Protein 1+ NEG Urine Glucose (UA) NEG NEG Urine Ketones 1+ NEG Urine Occult Blood 1+ NEG Urine Nitrite NEG NEG Urine Bilirubin 2+ NEG Urine Urobilinogen NEG NEG Urine Leukocyte Esterase TRACE NEG Urine WBC (Auto) 5-10 0-5 /hpf Urine RBC (Auto) 0-4 0-4 /hpf Urine Hyaline Casts (Auto) 0-5 /lpf Urine Epithelial Cells (Auto) >30 0-5 /lpf Urine Bacteria (Auto) 1+ NEG Urine Crystals CALCIUM OXALATE NONE PRSENT Urine Pathogenic Casts 0 /lpf Urine Yeast (Auto) BUDDING NONE PRSENT White Blood Count 10.42 4.8-10.8 K/uL Red Blood Count 4.17 4.2-5.4 M/uL Hemoglobin 12.0 12.0-16.0 g/dL Hematocrit 36.4 37-47 % Mean Corpuscular Volume 87.3 80-100 fL Mean Corpuscular Hemoglobin 28.8 25-34 pg Mean Corpuscular Hemoglobin Concent 33.0 32-36 g/dl RDW Standard Deviation 44.9 36.4-46.3 fL RDW Coefficient of Variation 14.1 11.5-14.5 % Platelet Count 378 130-400 K/uL Mean Platelet Volume 9.1 7.4-10.4 fL Sodium Level 139 136-145 mmol/L Potassium Level 3.1 3.5-5.1 mmol/L Chloride Level 101 98-107 mmol/L Carbon Dioxide Level 30 21-32 mmol/L Anion Gap 7.0 3-11 mmol/L Blood Urea Nitrogen 20 7-18 mg/dl Creatinine 1.36 0.60-1.20 mg/dl Est Creatinine Clear Calc Drug Dose 54.6 ml/min Estimated GFR () 49.6 Estimated GFR (Non- 42.8 BUN/Creatinine Ratio 14.5 10-20 Random Glucose 95 70-99 mg/dl Calcium Level 8.5 8.5-10.1 mg/dl Magnesium Level 1.7 1.8-2.4 mg/dl Microbiology Results 11/01/17 Urine Culture, Received Pending Assessment & Plan 11/02/17 clinically doing better wbc decreased no acute abdomen cont conservative management/ngt/ivf transfer [facility] [facility].
[2017-11-02] MEDS ORDERED: NICOTINE 21 MG/24 HR TDSY EXT SCH (13:00)
--- NOTE | 2017-11-02 18:44 | Discharge Summary ---
Discharge Summary Date of Service Nov 02, 2017. Discharge Summary Admission Date: Nov 01, 2017 at 17:33 Discharge Date: Nov 01, 2017 Discharge Disposition: Acute care facility Principal Diagnosis: High-grade small bowel obstruction and intra-abdominal abscess Immunizations: Have You Had Influenza Vaccine: Unknown History of Tetanus Vaccine?: Unknown History of Pneumococcal: Unknown History of Hepatitis B Vaccine: Unknown Consultations: General surgeon gynecology consults Medication Reconciliation Discontinued Medications: Albuterol Hfa (Ventolin Hfa) 200 Puffs/78777 Mcg Aers 2-4 PUFFS INH Q6H PRN for Shortness of Breath, #1 INHALER Albuterol Sulfate (Albuterol Sulfate) 1.25 Mg/3 Ml Neb 1 VIAL NEB Q4 PRN for Shortness of Breath, ML Budesonide/Formoterol Fumarate (Symbicort 160/4.5 Inhaler ) Aero 2 PUFFS INH QAM, INHALER Enoxaparin (Lovenox) Unknown Strength Inj Unknown Dose SQ DAILY, SYR Furosemide (Lasix) 20 Mg Tab 20 MG PO 2XWK, TAB Gabapentin (Neurontin) 300 Mg Cap 300 MG PO TID, CAP Gabapentin (Neurontin) 600 Mg Tab 600 MG PO TID, TAB Ibuprofen (Motrin) 800 Mg Tab 800 MG PO Q8H PRN for Pain, TAB Lisinopril (Zestril) 10 Mg Tab 10 MG PO QAM, TAB Metoprolol Tartrate (Lopressor) (Lopressor) 25 Mg Tab 25 MG PO BID, TAB Montelukast Sodium (Singulair) 10 Mg Tab 10 MG PO QPM, TAB Pantoprazole (Protonix) 40 Mg Tab 40 MG PO QAM, TAB Prochlorperazine Maleate (Prochlorperazine Maleate) Unknown Strength Tab Unknown Dose PO DIRECTED PRN for Nausea Tiotropium [place] (Spiriva Handihaler) 30 Puff/540 Mcg Aerp 1 CAP INH QAM, INHALER Tramadol (Ultram) 50 Mg Tab 50-100 MG PO BID PRN for Pain, TAB Discharge Exam Review of Systems: Constitutional: No fever, No chills, No weakness Respiratory: No cough, No sputum, No shortness of breath, No dyspnea on exertion Cardiovascular: No chest pain, No orthopnea, No edema Abdomen: No pain, No nausea, No diarrhea Musculoskeletal: No joint pain, No muscle pain, No swelling Neurologic: No memory loss, No weakness Psychiatric: No depression symptoms, No anhedonism, No anxiety Hospital Course 48-year-old female with high-grade small bowel obstruction and intra-abdominal abscess. High-grade bowel obstruction our local surgery team did not feel comfortable keeping the patient on their service and her local gynecology team did not feel comfortable taking the patient on their service The patient is improved by being n.p.o. with an NG tube and [place] hydrated with IV fluids repleting her hypokalemia controling her pain with hydrocodone and her nausea with Zofran patient is transferred to [facility] for further definitive treatment of her bowel obstruction An intra-abdominal abscess Use heparin therapy for DVT prevention We will offer the patient a nicotine patch for her persistent smoking Given her hypertension she typically takes metoprolol we will administer intravenous metoprolol Total Time Spent: Greater than 30 minutes This includes examination of the patient, discharge planning, medication reconciliation, and communication with other providers. Discharge Instructions Please refer to the electronic Patient Visit Report (Discharge Instructions) for additional information.
[2017-11-02] MEDS: CIPROFLOXACIN / D5W 400 MG in PREMIXED IN D5W 200 ML IV SCH (20:55)
--- NOTE | 2017-11-06 12:58 | EDITING REQUIRED CODING QUERY ---
CODING QUERY To promote full compliance with coding requirements relating to patient care, provider participation is requested in all cases of psych nurse uncertainty. Please assist us with the question(s) below: Coding Question(s): Please clarify below, in your clinical opinion, regarding the high grade bowel obstruction and intra-abdominal abscess. (xx ) These are likely postoperative complications from the recent Hysterectomy procedure ( ) These are not likely postoperative complications from the recent Hysterectomy procedure Physician's Response(s): Thank you Charlotte Osorio Principal Diagnosis: "_that condition established after study, to be chiefly responsible for occasioning the admission of the patient to the hospital for care." Co-Existing Principal Diagnosis: "_when two or more diagnoses equally meet the criteria for principal diagnosis as determined by the circumstances of admission, diagnostic work up, and/or therapy provided, and the Alphabetic Index, Tabular List, or another coding guideline does not provide sequencing direction, any one of the diagnoses may be sequenced first." "When the physician has documented what appears to be a current diagnosis in the body of the record, but has not included the diagnosis in the final diagnostic statement, the physician should be asked whether the diagnosis should be added." (Source Coding Clinic 2 QTR90. p3-4)
== END 2017-11-02 23:25 | disposition short-term general hospital (02) | DRG 862 ==
LOC: C.EDB 09:25 → C.2T 17:33 → ENRESERV 17:55
PROVIDERS: ADMIT Internal Medicine; ATTEND Internal Medicine
DX: T81.4XXA Infection following a procedure, initial encounter (principal); K65.1 Peritoneal abscess; K91.30 Postprocedural intestinal obstruction, unspecified as to partial versus complete; Z68.41 Body mass index [BMI] 40.0-44.9, adult; E87.6 Hypokalemia; I11.0 Hypertensive heart disease with heart failure; I50.9 Heart failure, unspecified; J44.9 Chronic obstructive pulmonary disease, unspecified; G62.9 Polyneuropathy, unspecified; E66.9 Obesity, unspecified; F17.200 Nicotine dependence, unspecified, uncomplicated; Z79.899 Other long term (current) drug therapy; Z79.01 Long term (current) use of anticoagulants; Z90.710 Acquired absence of both cervix and uterus; Z88.1 Allergy status to other antibiotic agents; Z88.5 Allergy status to narcotic agent; Z88.8 Allergy status to other drugs, medicaments and biological substances; Y83.6 Removal of other organ (partial) (total) as the cause of abnormal reaction of the patient, or of later complication, without mention of misadventure at the time of the procedure

== ENCOUNTER → 2018-01-31 | Outpatient (CLI) | payer OTHER ==
[~2018-01-31] MED LIST changes: +CMP5 PO; +ENOX30IN4 SQ
== END | disposition home or self-care (01) ==
LOC: C.RDSM 16:21
PROVIDERS: ATTEND Podiatrist
DX: M25.571 Pain in right ankle and joints of right foot (principal)

== ENCOUNTER 2020-10-10 14:06 | Inpatient (IN) ==
[2020-10-10] MEDS ORDERED: SODIUM CHLORIDE 0.9% 500 ML IV SCH (14:30)
[2020-10-10] MEDS ORDERED: ONDANSETRON INJ 2 MG/ML 2 ML VIAL IV STA (14:30)
[2020-10-10] MEDS ORDERED: ACETAMINOPHEN 1000 MG/100 ML IV IV STA (14:30)
--- NOTE | 2020-10-10 14:37 | Emergency Department Note ---
Impression & Plan Diffuse abdominal pain, SBO (small bowel obstruction), Vomiting, S/P cholecystectomy ED Provider Note NAME: BRIAN CARRENO AGE: 59 SEX: F : 1960 ARRIVES VIA: Ambulance INFORMANT: [Patient] ED PROVIDER(S): [William Wyman MD] CHIEF COMPLAINT: Abdominal pain HISTORY OF PRESENT ILLNESS: The patient is a 59-year-old female who had her gallbladder resected on the 10 18, 3 days ago. The patient states the surgery was same day. She presents with bloating, no bowel movement in 6 days, some right-sided back pain and diffuse abdominal pain. Her pain is an 8 on a scale 1 out of 10. Patient has tried some ibuprofen without relief, she does not want any narcotic. Patient states that she feels she needs to have a bowel movement but cannot. She states that in addition to the cholecystectomy, some lysis of adhesions was also performed. The patient states that yesterday, she began vomiting. She is vomiting green material that tastes like acid. She has not eaten since yesterday. She has tried Colace and Senokot without any stool production The patient states that she had a similar issue with her bowel after she had her hysterectomy. She required almost a week stay in the hospital for what they termed sleepy bowel. There has been no shortness of breath, no fever. No cough or congestion. She states her surgical incisions look to be healing well. REVIEW OF SYSTEMS: See HPI for pertinent positives and negatives. A total of ten systems were reviewed and were otherwise negative. PMHx/PSHx: See Below SOCIAL HISTORY: See Below. PHYSICAL EXAM: GENERAL: Patient is in no acute distress. HEENT: No acute trauma, normocephalic atraumatic, mucous membranes moist, no nasal congestion, no scleral icterus. NECK: No stridor, no adenopathy, no meningismus, trachea is midline. LUNGS: Clear to auscultation bilaterally, no wheeze, no rhonchi, breath sounds equal. HEART: Without murmurs gallops or rubs, regular rate and rhythm. ABDOMEN: Soft, diffusely mildly tender, surgical incisions without signs of erythema or drainage. She is somewhat distended about the abdomen, I cannot hear any bowel sounds. EXTREMITIES: No cyanosis, mild bilateral pedal edema, full range of motion of all the joints without pain or difficulty, no signs for acute trauma. NEUROLOGIC: Oriented x 3, no acute motor or sensory deficits, no focal weakness. SKIN: No rash, no jaundice, no diaphoresis. DIFFERENTIAL DIAGNOSIS: Appendicitis, ovarian cyst, ovarian torsion, infections, diverticulitis, UTI, obstruction, ileus, abscess, mesenteric ischemia, aortic pathology, inflammatory bowel disease, renal colic, PUD, pancreatitis, biliary pathology, hernia, volvulus, constipation, as well as other pathologies. EMERGENCY DEPARTMENT COURSE/PROCEDURES: ECG: Indication was abdominal pain. The ECG shows a normal sinus rhythm with a rate of 94. There is some nonspecific ST change across the anterior leads. The QTc is 442. There are no PVCs, no ST elevation. Compared to ECG from 20 August 2020, PVCs are no longer present, the nonspecific ST change appears worse. Continuous Cardiac Monitoring: An order was placed for continuous cardiac monitoring. The monitor shows a rate of 92 with normal sinus rhythm. MEDICAL DECISION MAKING: There is a mild leukocytosis, this could be consistent with infection or possibly just her vomiting. There was no anemia. There is a normal platelet count. Creatinine was mildly elevated at 1.21, this is consistent with some mild dehydration. No concerning electrolyte abnormalities. No concerning liver enzyme elevation. No evidence for pancreatitis. ECG shows a sinus rhythm, no acute ischemia. Cardiac enzyme testing x1 is not consistent with acute cardiac injury. Urinalysis shows contamination, no obvious infection. Covid testing returned negative. Chest film did not show pneumonia, free air or CHF. Abdominal and pelvis CT shows evidence for a small bowel obstruction. The patient did not want any narcotic pain medication. She was given IV Tylenol, she received IV Zofran. Patient was given IV saline for hydration-1 L was given while in the ED. With the findings of small bowel obstruction. The patient had an NG tube ordered. She requires bowel decompression. I spoke to the patient about her findings, I spoke with general surgery. Patient was seen by surgery here in the ED, she is being hospitalized. Case management has been involved. The CT findings of small bowel obstruction do explain her presentation. Past Med/Surg History Medical History Arteriosclerosis of carotid artery Bulging discs Cardiomyopathy transient, mild cardiomyopathy (2010) > resolved per subsequent 2013 ECHO, follows with cardiology (Dr. Betancur) Cholelithiasis Chronic sinusitis COPD (chronic obstructive pulmonary disease) GERD (gastroesophageal reflux disease) History of ovarian cancer dx 2016 valeria tumor - s/p SRI BSO; no chemo or radiation HTN (hypertension) Hyperlipemia Hypertrophy of both inferior nasal turbinates Migraines Morbid obesity Nasal septal deviation Neuropathy Osteoarthritis Poor historian Sleep apnea non compliant with CPAP Temporomandibular joint click Surgical History (Updated 10/10/20 @ 19:20 by William Wyman MD) History of colonoscopy History of dental surgery History of lymph node biopsy History of tonsillectomy History of total abdominal hysterectomy and bilateral salpingo-oophorectomy Hx laparoscopic cholecystectomy (10/07/20) Laparoscopic Cholecystectomy, Enterolysis, repair of enterotomy. Dr. Rebolledo 10/07/20 Hx of appendectomy Family History Family/Other Cancer Hypertension Heart disease Mother Cancer Brother Cancer Hypertension Father Heart disease Other No family history of bleeding disorder Denies family history of Ovarian cancer Prostate cancer Myocardial infarction Breast cancer Colorectal cancer Social History Smoking Status: Current every day smoker Cigarettes Per Day: 10; Second Hand Exposure: No; Do You Dip or Chew Tobacco: No; Hx Alcohol Use: Yes Alcohol type: hard liquor Hx Substance Use: No Preferred Language: Cymraes Communication Ability: Effective Software Applications Specialist Required: No Beliefs That Will Affect Care: None marital status: Single marital status details: Current Living Situation: Alone current occupational status: disabled Other Information That Helps Us Care for You: No Feels Safe at Home: Yes Safety Concerns: Feels Safe At This Time caffeine: Yes Dental Care, Regularly: Yes Physical Activity Frequency: Does not Exercise Seatbelt Use: sometimes Sunscreen Use: No Assistive Devices: Cane and Glasses Allergies Allergies Allergy/AdvReac Type Severity Reaction Status Date / Time amoxicillin [From Augmentin] Allergy Intermediate Hives Verified 10/10/20 15:36 clavulanic acid Allergy Intermediate Hives Verified 10/10/20 15:36 [From Augmentin] codeine AdvReac Intermediate Dizziness, Verified 10/10/20 15:36 vomiting morphine AdvReac Intermediate Vomiting Verified 10/10/20 15:36 prednisone AdvReac Intermediate Dizziness Verified 10/10/20 15:36 Home Meds Home Medications Medication Instructions Recorded Confirmed tramadol 50 mg PO BID PRN 05/17/18 10/10/20 albuterol sulfate 2.5 mg INHALATION Q6H PRN #1 ml 05/26/19 10/10/20 docusate sodium 100 mg capsule 100 mg PO BID PRN cap 02/26/20 10/10/20 potassium chloride 20 mEq 20 meq PO 2XWK tab 02/26/20 10/10/20 tablet,extended release Spiriva with HandiHaler 1 cap INHALATION QAM 08/11/20 10/10/20 atorvastatin 20 mg PO QPM 08/11/20 10/10/20 furosemide 20 mg PO 2XWK 08/11/20 10/10/20 gabapentin 300 mg PO TID 08/11/20 10/10/20 gabapentin 600 mg PO TID 08/11/20 10/10/20 lisinopril 10 mg PO QAM 08/11/20 10/10/20 metoprolol tartrate 25 mg PO BID 08/11/20 10/10/20 montelukast 10 mg PO QPM 08/11/20 10/10/20 pantoprazole 40 mg PO QAM 08/11/20 10/10/20 Previous Rx's Medication Instructions Recorded sennosides 8.6 mg tablet 8.6 mg PO BID PRN #180 tab 05/27/19 budesonide-formoterol HFA 160 2 puff INHALATION BID #30.6 gm 08/05/19 mcg-4.5 mcg/actuation aerosol inhaler albuterol sulfate 90 mcg/actuation 2 puff INHALATION Q6H PRN #18 gm 12/17/19 aerosol inhaler ibuprofen 800 mg tablet 800 mg PO DAILY PRN #90 tab 02/06/20 Results & Data (ED) Vital Signs Vital Signs - 24 hr 10/10/20 14:07 10/10/20 14:09 10/10/20 14:11 Temperature 36.7 C Temperature Source Oral Pulse Rate 102 H 107 H 103 H Pulse Rate [Right Finger] Pulse Rate from SpO2 Sensor 102 H 103 H Respiratory Rate 14 18 16 Blood Pressure 158/106 H 158/106 H Blood Pressure [Right Arm] Blood Pressure Mean 123 123 Blood Pressure Mean [Right Arm] Pulse Oximetry 96 97 97 Oxygen Delivery Method Room Air Sepsis Recent Fever Within 48 Hours No Sepsis New/Unexplained Change in Mental Status No Sepsis Action Taken by Nursing No Action Required 10/10/20 14:30 10/10/20 15:00 10/10/20 15:20 Temperature Temperature Source Pulse Rate 95 H 98 H 94 H Pulse Rate [Right Finger] 95 H Pulse Rate from SpO2 Sensor 96 H 96 H Respiratory Rate 18 18 20 Blood Pressure 117/78 Blood Pressure [Right Arm] 117/78 Blood Pressure Mean 91 Blood Pressure Mean [Right Arm] 91 Pulse Oximetry 96 95 97 Oxygen Delivery Method Room Air Sepsis Recent Fever Within 48 Hours Sepsis New/Unexplained Change in Mental Status Sepsis Action Taken by Nursing 10/10/20 15:22 10/10/20 15:23 10/10/20 15:51 Temperature Temperature Source Pulse Rate 94 H 95 H 93 H Pulse Rate [Right Finger] Pulse Rate from SpO2 Sensor 95 H 96 H Respiratory Rate 19 17 18 Blood Pressure 113/70 Blood Pressure [Right Arm] Blood Pressure Mean 84 Blood Pressure Mean [Right Arm] Pulse Oximetry 94 96 Oxygen Delivery Method Sepsis Recent Fever Within 48 Hours Sepsis New/Unexplained Change in Mental Status Sepsis Action Taken by Nursing 10/10/20 15:52 10/10/20 16:47 10/10/20 18:16 Temperature Temperature Source Pulse Rate 93 H Pulse Rate [Right Finger] 84 86 Pulse Rate from SpO2 Sensor 87 Respiratory Rate 20 20 18 Blood Pressure 155/60 H Blood Pressure [Right Arm] 143/90 H 133/77 Blood Pressure Mean 91 Blood Pressure Mean [Right Arm] 107 95 Pulse Oximetry 98 96 97 Oxygen Delivery Method Room Air Room Air Sepsis Recent Fever Within 48 Hours Sepsis New/Unexplained Change in Mental Status Sepsis Action Taken by Nursing 10/10/20 18:40 Temperature Temperature Source Pulse Rate 102 H Pulse Rate [Right Finger] Pulse Rate from SpO2 Sensor Respiratory Rate Blood Pressure Blood Pressure [Right Arm] Blood Pressure Mean Blood Pressure Mean [Right Arm] Pulse Oximetry Oxygen Delivery Method Sepsis Recent Fever Within 48 Hours Sepsis New/Unexplained Change in Mental Status Sepsis Action Taken by Prison Medications Current Medication List: was personally reviewed by me Laboratory Data Attestation: I reviewed the patient's lab results. Result diagrams: 10/10/20 14:58 10/10/20 14:58 Lab Results 10/10/20 10/10/20 10/10/20 Range/Units 14:58 14:58 15:22 WBC 13.43 H (4.8-10.8) K/uL RBC 4.90 (4.2-5.4) M/uL Hgb 14.8 (12.0-16.0) g/dL Hct 43.8 (37-47) % MCV 89.4 (80-100) fL MCH 30.2 (25-34) pg MCHC 33.8 (32-36) g/dL RDW Std Deviation 43.5 (36.4-46.3) fL RDW Coeff of Nico 13.2 (11.5-14.5) % Plt Count 356 (130-400) K/uL MPV 10.0 (7.4-10.4) fL Immature Gran % (Auto) 0.4 % Neut % (Auto) 81.8 % Lymph % (Auto) 12.4 % Fulton % (Auto) 4.4 % Eos % (Auto) 0.9 % Baso % (Auto) 0.1 % Neut # (Auto) 10.99 H (1.4-6.5) K/uL Lymph # (Auto) 1.66 (1.2-3.4) K/uL Fulton # (Auto) 0.59 (0.11-0.59) K/uL Eos # (Auto) 0.12 (0-0.5) K/uL Baso # (Auto) 0.02 (0-0.2) K/uL Immature Gran # (Auto) 0.05 H (0.00-0.02) K/uL Sodium 133 L (136-145) mmol/L Potassium 3.8 (3.5-5.1) mmol/L Chloride 97 L (98-107) mmol/L Carbon Dioxide 27 (21-32) mmol/L Anion Gap 10.0 (3-11) BUN 12 (7-18) mg/dl Creatinine 1.21 H (0.6-1.2) mg/dl Est Cr Clr Drug Dosing 62.3 ml/min Est GFR ( Amer) 55.9 Est GFR (Non-Af Amer) 48.3 BUN/Creatinine Ratio 9.6 L (10-20) Glucose 111 H (70-99) mg/dl Calcium 10.1 (8.5-10.1) mg/dl Magnesium 1.9 (1.8-2.4) mg/dl Total Bilirubin 0.9 (0.2-1) mg/dl AST 8 L (15-37) U/L ALT 24 (12-78) U/L Alkaline Phosphatase 104 (45-117) U/L Troponin I < 0.015 (0-0.045) ng/ml Total Protein 7.9 (6.4-8.2) gm/dl Albumin 3.6 (3.4-5.0) gm/dl Globulin 4.3 H (2.5-4.0) gm/dl Albumin/Globulin Ratio 0.8 L (0.9-2) Lipase 68 L (73-393) U/L Urine Color Dark Yellow Urine Appearance Clear (Clear) Urine pH 5.5 (4.5-7.5) Ur Specific Baker 1.037 H (1.000-1.030) Urine Protein Negative (Negative) Urine Glucose (UA) Negative (Negative) Urine Ketones Trace H (Negative) Urine Blood 1+ H (Negative) Urine Nitrite Negative (Negative) Urine Bilirubin 1+ H (Negative) Urine Urobilinogen Negative (Negative) Ur Leukocyte Esterase Negative (Negative) Urine WBC (Auto) 1-5 (0-5) /hpf Urine RBC (Auto) 0-4 (0-4) /hpf U Hyaline Cast (Auto) 5-10 H (0-5) /lpf U Epithel Cells (Auto) >30 H (0-5) /lpf Urine Bacteria (Auto) 1+ H (Negative) Urine Yeast Present A (None Prsent) COVID-19 Eval Order SARS-CoV-2, RNA, NAAT (NEGATIVE) 10/10/20 10/10/20 Range/Units 16:40 16:40 WBC (4.8-10.8) K/uL RBC (4.2-5.4) M/uL Hgb (12.0-16.0) g/dL Hct (37-47) % MCV (80-100) fL MCH (25-34) pg MCHC (32-36) g/dL RDW Std Deviation (36.4-46.3) fL RDW Coeff of Nico (11.5-14.5) % Plt Count (130-400) K/uL MPV (7.4-10.4) fL Immature Gran % (Auto) % Neut % (Auto) % Lymph % (Auto) % [place] % (Auto) % Eos % (Auto) % Baso % (Auto) % Neut # (Auto) (1.4-6.5) K/uL Lymph # (Auto) (1.2-3.4) K/uL Fulton # (Auto) (0.11-0.59) K/uL Eos # (Auto) (0-0.5) K/uL Baso # (Auto) (0-0.2) K/uL Immature Gran # (Auto) (0.00-0.02) K/uL Sodium (136-145) mmol/L Potassium (3.5-5.1) mmol/L Chloride (98-107) mmol/L Carbon Dioxide (21-32) mmol/L Anion Gap (3-11) BUN (7-18) mg/dl Creatinine (0.6-1.2) mg/dl Est Cr Clr Drug Dosing ml/min Est GFR ( Amer) Est GFR (Non-Af Amer) BUN/Creatinine Ratio (10-20) Glucose (70-99) mg/dl Calcium (8.5-10.1) mg/dl Magnesium (1.8-2.4) mg/dl Total Bilirubin (0.2-1) mg/dl AST (15-37) U/L ALT (12-78) U/L Alkaline Phosphatase (45-117) U/L Troponin I (0-0.045) ng/ml Total Protein (6.4-8.2) gm/dl Albumin (3.4-5.0) gm/dl Globulin (2.5-4.0) gm/dl Albumin/Globulin Ratio (0.9-2) Lipase (73-393) U/L Urine Color Urine Appearance (Clear) Urine pH (4.5-7.5) Ur Specific Baker (1.000-1.030) Urine Protein (Negative) Urine Glucose (UA) (Negative) Urine Ketones (Negative) Urine Blood (Negative) Urine Nitrite (Negative) Urine Bilirubin (Negative) Urine Urobilinogen (Negative) Ur Leukocyte Esterase (Negative) Urine WBC (Auto) (0-5) /hpf Urine RBC (Auto) (0-4) /hpf U Hyaline Cast (Auto) (0-5) /lpf U Epithel Cells (Auto) (0-5) /lpf Urine Bacteria (Auto) (Negative) Urine Yeast (None Prsent) COVID-19 Eval Order Covid19 IDNow [facility] SARS-CoV-2, RNA, NAAT NEGATIVE (NEGATIVE) Administered Medications Discontinued Medications Acetaminophen (Acetaminophen 1000 Mg/100 Ml Iv) 1,000 mg IV NOW STA Stop: 10/10/20 14:31 Last Admin: 10/10/20 15:24 Dose: 1,000 mg Documented by: [id number] Sodium Chloride (Nss) 500 mls @ 999 mls/hr IV .Q31M LYSSA Stop: 10/10/20 15:00 Last Infusion: 10/10/20 16:32 Dose: 0 mls/hr Documented by: [id number] Admin: 10/10/20 15:24 Dose: 999 mls/hr Documented by: [id number] Sodium Chloride (Nss 1000ml) 500 mls @ 999 mls/hr IV .Q31M ONE Stop: 10/10/20 16:13 Last Infusion: 10/10/20 16:32 Dose: 0 mls/hr Documented by: [id number] Admin: 10/10/20 15:48 Dose: 999 mls/hr Documented by: [id number] Ioversol (Ioversol 100ml) 93 ml IV ONCE ONE Stop: 10/10/20 15:30 Last Admin: 10/10/20 15:30 Dose: 93 ml Documented by: [id number] Ondansetron HCl (Ondansetron Inj 2 Mg/Ml 2 Ml Vial) 4 mg IV NOW STA Stop: 10/10/20 14:31 Last Admin: 10/10/20 15:24 Dose: 4 mg Documented by: [id number] Imaging Data Radiologist's Impression: XR chest 1V portable CLINICAL HISTORY: Abdominal pain. COMPARISON STUDY: Chest CT July 14, 2020. FINDINGS: Lung volumes are normal. Lungs are clear. There is no pneumothorax or pleural effusion. Cardiac size is normal. Mediastinal contours are normal. There is no evidence for pulmonary edema. IMPRESSION: No acute cardiopulmonary findings. CT OF THE ABDOMEN AND PELVIS WITH CONTRAST CLINICAL HISTORY: GB surg, pain, bloated, vomiting COMPARISON STUDY: CT of the abdomen and pelvis July 14, 2020. TECHNIQUE: Following IV administration of 93 mL of Optiray-320, axial images of the abdomen and pelvis were obtained from the lung bases to the proximal femurs. Images were reviewed in the axial, sagittal, and coronal planes. IV contrast was administered without complication. Automated exposure control was utilized for the study. A dose lowering technique was utilized adhering to the principles of ALARA. CT DOSE: 1426.57 mGy.cm FINDINGS: Lung bases are unremarkable. There is a prominent right cardiophrenic angle lymph node that measures 0.9 cm in short axis diameter. This is indeterminate although probably benign. The stomach is fluid-filled and distended. The spleen, adrenal glands, kidneys and pancreas are unremarkable. There is no hydronephrosis. There is no pancreatic ductal dilatation. There is no biliary ductal dilatation status post recent cholecystectomy. There is trace fluid and infiltration within the cholecystectomy bed. There is postoperative findings within the subcutaneous tissues of the anterior abdominal wall with a few locules of gas. This is postsurgical. The proximal to mid small bowel is moderately dilated and fluid-filled. There is a transition point within the left anterior abdomen on image 222 of 416. The distal small bowel is markedly dec ompressed. There is mild mesenteric infiltration and trace interloop ascites. No pneumatosis, free air or portal venous gas is present. Note is made of a fat- containing umbilical hernia. No definite small bowel loops extend into the hernia sac and this does not account for the small bowel obstruction. Colonic diverticulosis is noted without evidence for acute diverticulitis. There is a moderate amount stool within the rectum. Uterus and ovaries are surgically absent. Calcifications within the right hepatic lobe are benign. IMPRESSION: 1. Findings consistent with a small bowel obstruction with transition point within the mid small bowel within the left anterior abdomen. Moderately dilated fluid-filled proximal small bowel with markedly decompressed distal small bowel. Statistically, this obstruction is due to adhesions. Mildly distended fluid- filled stomach. Nasogastric tube placement might be considered. 2. Postoperative findings consistent with recent cholecystectomy. Trace fluid and infiltration within the cholecystectomy bed which is not unexpected in the early postoperative setting. No biliary ductal dilatation. 3. Fat-containing umbilical hernia. No definite small bowel loops within the hernia sac and this hernia does not account for the small bowel obstruction. 4. Colonic diverticulosis without evidence for acute diverticulitis. 5. Moderate amount stool within the colon. Discharge Plan Visit Data Chief Complaint: Abdominal Pain ED Provider: William Wyman Discharge Problem: Diffuse abdominal pain, SBO (small bowel obstruction), Vomiting, S/P cholecystectomy Patient Disposition: Admitted As Inpatient Condition: Fair Discharge Instructions Interventions: ED Discharge Assessment Last Done: 10/10/20 18:18 Discharge Problem: Vomiting Qualifiers: Vomiting type: unspecified Vomiting Intractability: non-intractable Nausea pre sence: with nausea Qualified Code(s): R11.2 - Nausea with vomiting, unspecified
[2020-10-10 15:05] LABS: Basophils # (auto) 0.02 K/uL (0-0.2); Basophils % (auto) 0.1 %; Eosinophils # (auto) 0.12 K/uL (0-0.5); Eosinophils % (auto) 0.9 %; Hematocrit (blood only) 43.8 % (37-47); Hemoglobin 14.8 g/dL (12.0-16.0); Immature Granulocytes # (auto) 0.05 K/uL (0.00-0.02); Immature Granulocytes % (auto) 0.4 %; Lymphocytes # (auto) 1.66 K/uL (1.2-3.4); Lymphocytes % (auto) 12.4 %; Mean Corpuscular Hemoglobin 30.2 pg (25-34); Mean Corpuscular Hgb Conc 33.8 g/dL (32-36); Mean Corpuscular Volume 89.4 fL (80-100); Monocytes # (auto) 0.59 K/uL (0.11-0.59); Monocytes % (auto) 4.4 %; Neutrophils # (auto) 10.99 K/uL (1.4-6.5); Neutrophils % (auto) 81.8 %; Platelet Count 356 K/uL (130-400); RDW Coefficient of Variation 13.2 % (11.5-14.5); RDW Standard Deviation 43.5 fL (36.4-46.3); White Blood Count 13.43 K/uL (4.8-10.8)
--- NOTE | 2020-10-10 15:15 | XRay Report ---
XR chest 1V portable CLINICAL HISTORY: Abdominal pain. COMPARISON STUDY: Chest CT July 14, 2020. FINDINGS: Lung volumes are normal. Lungs are clear. There is no pneumothorax or pleural effusion. Car diac size is normal. Mediastinal contours are normal. There is no evidence for pulmonary edema. IMPRESSION: No acute cardiopulmonary findings. ACT 112: Negative or not required by law. Electronically signed by: Levy West M.D. 10/10/2020 3:14 PM
[2020-10-10 15:22] LABS: Alanine Aminotransferase 24 U/L (12-78); Albumin Level 3.6 gm/dl (3.4-5.0); Aspartate Aminotransferase 8 U/L (15-37); BUN Creatinine Ratio 9.6 (10-20); Blood Urea Nitrogen 12 mg/dl (7-18); Calcium 10.1 mg/dl (8.5-10.1); Carbon Dioxide 27 mmol/L (21-32); Chloride 97 mmol/L (98-107); Creatinine Clr Calc Pharmacy 62.3 ml/min; Est GFR (African American) 55.9; Est GFR (Non-African American) 48.3; Glucose 111 mg/dl (70-99); Lipase 68 U/L (73-393); Magnesium 1.9 mg/dl (1.8-2.4); Potassium 3.8 mmol/L (3.5-5.1); Sodium 133 mmol/L (136-145)
[2020-10-10 15:27] LABS: Albumin Globulin Ratio 0.8 (0.9-2); Alkaline Phosphatase 104 U/L (45-117); Bilirubin,Total 0.9 mg/dl (0.2-1); Globulin 4.3 gm/dl (2.5-4.0); Total Protein 7.9 gm/dl (6.4-8.2); Troponin I < 0.015 ng/ml (0-0.045)
[2020-10-10] MEDS ORDERED: OPTIRAY 320 100ml IV ONE (15:29)
[2020-10-10] MEDS ORDERED: SODIUM CHLORIDE 0.9% 1000ML 500 ML IV ONE (15:43)
--- NOTE | 2020-10-10 15:56 | CT Scan Report ---
CT OF THE ABDOMEN AND PELVIS WITH CONTRAST CLINICAL HISTORY: GB surg, pain, bloated, vomiting COMPARISON STUDY: CT of the abdomen and pelvis July 14, 2020. TECHNIQUE: Following IV administration of 93 mL of Optiray-320, axial images of the abdomen and pelvi s were obtained from the lung bases to the proximal femurs. Images were reviewed in the axial, sagitt al, and coronal planes. IV contrast was administered without complication. Automated exposure contro l was utilized for the study. A dose lowering technique was utilized adhering to the principles of A CHUCK. CT DOSE: 1426.57 mGy.cm FINDINGS: Lung bases are unremarkable. There is a prominent right cardiophrenic angle lymph node that measures 0.9 cm in short axis diameter. This is indeterminate although probably benign. The stomach is fluid-filled and distended. The spleen, adrenal glands, kidneys and pancreas are unremarkable. The re is no hydronephrosis. There is no pancreatic ductal dilatation. There is no biliary ductal dilatat ion status post recent cholecystectomy. There is trace fluid and infiltration within the cholecystect herbert bed. There is postoperative findings within the subcutaneous tissues of the anterior abdominal wa ll with a few locules of gas. This is postsurgical. The proximal to mid small bowel is moderately dil ated and fluid-filled. There is a transition point within the left anterior abdomen on image 222 of 4 [id number]. The distal small bowel is markedly decompressed. There is mild mesenteric infiltration and trace interloop ascites. No pneumatosis, free air or portal venous gas is present. Note is made of a fat-co ntaining umbilical hernia. No definite small bowel loops extend into the hernia sac and this does not account for the small bowel obstruction. Colonic diverticulosis is noted without evidence for acute diverticulitis. There is a moderate amount stool within the rectum. Uterus and ovaries are surgically absent. Calcifications within the right hepatic lobe are benign. IMPRESSION: 1. Findings consistent with a small bowel obstruction with transition point within the mid small gee l within the left anterior abdomen. Moderately dilated fluid-filled proximal small bowel with markedl y decompressed distal small bowel. Statistically, this obstruction is due to adhesions. Mildly disten ded fluid-filled stomach. Nasogastric tube placement might be considered. 2. Postoperative findings consistent with recent cholecystectomy. Trace fluid and infiltration within the cholecystectomy bed which is not unexpected in the early postoperative setting. No biliary ducta l dilatation. 3. Fat-containing umbilical hernia. No definite small bowel loops within the hernia sac and this pk ia does not account for the small bowel obstruction. 4. Colonic diverticulosis without evidence for acute diverticulitis. 5. Moderate amount stool within the colon. ACT 112: Negative or not required by law. Electronically signed by: Levy West M.D. 10/10/2020 3:55 PM
[2020-10-10 16:08] LABS: Appearance Urine Clear (Clear); Blood Urine 1+ (Negative); Color Urine Dark Yellow; Epithelial Cell Urine Auto >30 /lpf (0-5); Glucose Urine UA Negative (Negative); Ketones Urine Trace (Negative); Leukocyte Esterase Urine Negative (Negative); Nitrite Urine Negative (Negative); Protein Urine Negative (Negative); Specific Gravity Urine 1.037 (1.000-1.030); Urobilinogen Urine Negative (Negative); pH Urine 5.5 (4.5-7.5)
[2020-10-10 16:09] LABS: Bilirubin Urine 1+ (Negative)
[2020-10-10 16:17] LABS: Bacteria Urine Automated 1+ (Negative); RBC Urine Automated 0-4 /hpf (0-4)
--- NOTE | 2020-10-10 16:45 | History & Physical Report ---
Date of Service October 10, 2020 Assessment & Plan (1) Small bowel obstruction: We will admit the patient to the hospital and try nonoperative management NG to low intermittent suction, bowel rest and IV fluids We will asked the medical team to see the patient as she does have several medical problems For which she takes p.o. medication We will place her on the telemetry floor as she may need IV meds being n.p.o. History of Present Illness Primary Care Provider: KARISSA Appiah 59-year-old female presenting to the ER with 1 to 2 days of abdominal distention nausea and vomiting mostly this morning and yesterday On 10/07/2020 she underwent laparoscopic cholecystectomy with enterolysis and repair of enterotomy by Dr. Rebolledo Her CT scan does show dilated small bowel with apparent transition point near the mid abdomen Patient currently is in her ER bed no distress normal affect and minimal pain Allergies Allergy/AdvReac Type Severity Reaction Status Date / Time amoxicillin [From Augmentin] Allergy Intermediate Hives Verified 10/10/20 15:36 clavulanic acid Allergy Intermediate Hives Verified 10/10/20 15:36 [From Augmentin] codeine AdvReac Intermediate Dizziness, Verified 10/10/20 15:36 vomiting morphine AdvReac Intermediate Vomiting Verified 10/10/20 15:36 prednisone AdvReac Intermediate Dizziness Verified 10/10/20 15:36 Home Medications Medication Instructions Recorded Confirmed Type tramadol 50 mg PO BID PRN 05/17/18 10/10/20 History albuterol sulfate 2.5 mg INHALATION Q6H PRN #1 ml 05/26/19 10/10/20 History sennosides 8.6 mg tablet 8.6 mg PO BID PRN #180 tab 05/27/19 10/10/20 Rx budesonide-formoterol HFA 160 2 puff INHALATION BID #30.6 gm 08/05/19 10/10/20 Rx mcg-4.5 mcg/actuation aerosol inhaler albuterol sulfate 90 mcg/actuation 2 puff INHALATION Q6H PRN #18 gm 12/17/19 10/10/20 Rx aerosol inhaler ibuprofen 800 mg tablet 800 mg PO DAILY PRN #90 tab 02/06/20 10/10/20 Rx docusate sodium 100 mg capsule 100 mg PO BID PRN cap 02/26/20 10/10/20 History potassium chloride 20 mEq 20 meq PO 2XWK tab 02/26/20 10/10/20 History tablet,extended release Spiriva with HandiHaler 1 cap INHALATION QAM 08/11/20 10/10/20 History atorvastatin 20 mg PO QPM 08/11/20 10/10/20 History furosemide 20 mg PO 2XWK 08/11/20 10/10/20 History gabapentin 300 mg PO TID 08/11/20 10/10/20 History gabapentin 600 mg PO TID 08/11/20 10/10/20 History lisinopril 10 mg PO QAM 08/11/20 10/10/20 History metoprolol tartrate 25 mg PO BID 08/11/20 10/10/20 History montelukast 10 mg PO QPM 08/11/20 10/10/20 History pantoprazole 40 mg PO QAM 08/11/20 10/10/20 History Past Med/Surg History Medical History (Updated 10/10/20 @ 16:44 by Michael Thompson MD, FACS) Arteriosclerosis of carotid artery Bulging discs Cardiomyopathy transient, mild cardiomyopathy (2010) > resolved per subsequent 2013 ECHO, follows with cardiology (Dr. Betancur) Cholelithiasis Chronic sinusitis COPD (chronic obstructive pulmonary disease) GERD (gastroesophageal reflux disease) History of ovarian cancer dx 2016 valeria tumor - s/p SRI BSO; no chemo or radiation HTN (hypertension) Hyperlipemia Hypertrophy of both inferior nasal turbinates Migraines Morbid obesity Nasal septal deviation Neuropathy Osteoarthritis Poor historian Sleep apnea non compliant with CPAP Temporomandibular joint click Surgical History (Updated 10/07/20 @ 09:55 by Virginia Morales RN) History of colonoscopy History of dental surgery History of lymph node biopsy History of tonsillectomy History of total abdominal hysterectomy and bilateral salpingo-oophorectomy Hx laparoscopic cholecystectomy (10/07/20) Laparoscopic Cholecystectomy, Enterolysis, repair of enterotomy. Dr. Rebolledo 10/07/20 Hx of appendectomy Family History Family/Other Cancer Hypertension Heart disease Mother Cancer Brother Cancer Hypertension Father Heart disease Other No family history of bleeding disorder Denies family history of Ovarian cancer Prostate cancer Myocardial infarction Breast cancer Colorectal cancer Social History Smoking Status: Current every day smoker Cigarettes Per Day: 10; Second Hand Exposure: No; Do You Dip or Chew Tobacco: No; Hx Alcohol Use: Yes Alcohol type: hard liquor Hx Substance Use: No Preferred Language: Welsh Communication Ability: Effective Inside Finisher Required: No Beliefs That Will Affect Care: None marital status: Single marital status details: Current Living Situation: Alone current occupational status: disabled Other Information That Helps Us Care for You: No Feels Safe at Home: Yes Safety Concerns: Feels Safe At This Time caffeine: Yes Dental Care, Regularly: Yes Physical Activity Frequency: Does not Exercise Seatbelt Use: sometimes Sunscreen Use: No Assistive Devices: Cane and Glasses Review of Systems Review of Systems: All systems reviewed & are unremarkable except as noted in HPI & below Physical Exam Constitutional: well developed and well nourished; no acute distress Eyes: + anicteric sclerae Respiratory: normal respiratory effort; no respiratory distress Cardiovascular: Rate/Rhythm: regular rate Gastrointestinal (Abdomen): Patient's abdomen is moderately distended, she has incisions from her hernia which are healing well She has decreased bowel sounds, minimal tenderness Musculoskeletal: Head/Neck/Chest: head atraumatic Skin: no rashes, warm and dry Neurologic: awake Psychiatric: Orientation: alert Results & Data Results & Data ([facility]) Vital Signs (Past 12 Hours) Vital Signs Temp Pulse Pulse Resp BP BP Pulse Ox 10/10/20 15:52 93 H 20 155/60 H 98 10/10/20 15:51 93 H 18 10/10/20 15:23 95 H 17 96 10/10/20 15:22 94 H 19 113/70 94 10/10/20 15:20 94 H 95 H 20 117/78 97 10/10/20 15:00 98 H 18 117/78 95 10/10/20 14:30 95 H 18 96 10/10/20 14:11 103 H 16 97 10/10/20 14:09 36.7 C 107 H 18 158/106 H 97 10/10/20 14:07 102 H 14 158/106 H 96 I did review her CAT scan Code Status & VTE Plan VTE Prophylaxis Plan VTE Prophylaxis will be ordered: Yes PG Care Time/CCT Total # of Minutes Spent Total Time Spent with Patient: Total time spent is greater than 50% in coordination of care (as documented) at patient's floor/unit and/or counseling patient: Coding Level of Care Code 79341 Initial Inpt Care Lvl 3 Diagnoses Small bowel obstruction K56.609
--- NOTE | 2020-10-10 16:47 | Hospitalist Consultation ---
Date of Consultation October 10, 2020 Assessment & Plan (1) Small bowel obstruction: -NG tube in place, to [facility], general surgery, Dr. Thompson is attending and primary service -Maintain NG tube, n.p.o. -Abdominal pain is minimal except for around the incision sites currently, serial abdominal exams per primary team -History of SBO prior to this episode, October 2017 s/p total hysterectomy had similar presentation where she was hospitalized for 5 days (2) Chronic diastolic CHF (congestive heart failure): -Continue on metoprolol 25 mg BID -Hold lisinopril, Lasix on hold for now-last dose was on 10/04, she held her Lasix when it was typically scheduled for last due to laparoscopic cholecystectomy. We will plan to hydrate at this time with mild JESSICA, can consider resuming Lasix tomorrow pending BMP with a.m. labs -Last echo done in November 2012 by [facility], showing mild concentric LVH, EF >70%, no segmental left ventricular WMA noted, grade 1 diastolic dysfunction (3) Hypercholesterolemia: -Hold statin therapy for now with n.p.o. status (4) Cardiomyopathy: -Resolved at this point (5) Hypertension: -Medications as above, BP is mildly elevated at 143/90 at bedside (6) COPD (chronic obstructive pulmonary disease): -Smokes 1/2 pack/day x 42 years, cessation encouraged at bedside -Followed previously with pulmonology-Dr. Nava, the patient continues to use Symbicort, Spiriva, and as needed Ventolin (7) Obstructive sleep apnea of adult: -Does not use CPAP (8) Acid reflux disease with ulcer: -Continue IV famotidine 20 mg IV twice daily (9) Peripheral neuropathy: -History of such, holding gabapentin for now with n.p.o. status, can use Voltaren gel or lidocaine patch for pain relief, IV Tylenol (10) Vitamin D deficiency: -Hold supplementation DVT ppx: - teds, scds CODE: Full code Dispo: From home, likely to remain in the hospital x 1-2 days Supervising Physician Co-Signing Physician Notes Attending Attestation / Consult Note: Pt seen/examined, chart reviewed, care plan d/w ANNY Valles. I agree w/ the johnson components of her documentation. 59yo female with COPD, tobacco use, morbid obesity (BMI 45), HTN - POD #3 from lap segundo and lysis of adhesions. Tolerated surgery well and was d/c home. Unfortunately returns with SBO. NG tube placed in ER. During my assessment patient's NG tube was draining copious yellow fluid. She has not passed flatus since admission. She does feel that her abdomen is less distended than earlier today. PMH, PSH, allergies, meds, sochx, famhx - reviewed VSS, afebrile gen - NAD, morbidly obese nose - NG tube in place mouth - MM dry heart - RRR, s1 s2 lungs - CTA b/l abd - distended, BS+ but decreased, tender over incisions, no HSM, incisions clean skin - mild pink erythema inferior to umbilicus ext - pulses 2+ b/l labs reviewed Na 133 Cr 1.2 Hb 14.8 A/P: 1. SBO - defer management to gen surg. NG tube, IV fluids, NPO, pain meds, etc. 2. morbid obesity - BMI 45. 3. HTN - metoprolol 2.5mg IV q6h. 4. COPD - w/o exacerbation. 5. hyponatremia - should correct with isotonic fluids; bmp am. 6. DVT proph - lovenox 40mg daily. Sage Whitaker MD History of Present Illness Reason for Consultation: Medical management Requesting Physician: Dr. Thompson Attending Physician: Dr. Thompson History of Present Illness This is a 59 yo F with PMhx of HTN, HLD, transient mild cardiomyopathy in 2010, COPD, GERD, morbid obesity, migraines, neuropathy, current tobacco use x42 years, 1/2 pack/day, osteoarthritis who presents with acute onset of abdominal pain. She is found to have a small bowel obstruction on imaging, suspected due to adhesions from previous abdominal surgeries including total hysterectomy, appendectomy , and most recently laparoscopic cholecystectomy done on 10/07/[address] Rebolledo where small bowel enterotomy was completed due to significant amount of small bowel adhesions. She did well after that point and was discharged home. Patient's main complaint today was nausea, vomiting and a bdominal distention. She is having mild abdominal pain over the incision areas from her laparoscopic cholecystectomy. Patient did not have much of an appetite postop day 1 or 2, and ate an apple on Sunday. She reports that around 8 PM Sunday she began having nausea and vomited once an hour every hour nearly all through the night, this morning she was unable to deal with this any further and came to the ER. She took scheduled Colace and MiraLAX postop day 1 but no other bowel regimen. She reports that she had a similar presentation with small bowel obstruction in October 2017 after she had her total hysterectomy completed, and ended up being hospitalized for 5 days. Allergies Allergy/AdvReac Type Severity Reaction Status Date / Time amoxicillin [From Augmentin] Allergy Intermediate Hives Verified 10/10/20 15:36 clavulanic acid Allergy Intermediate Hives Verified 10/10/20 15:36 [From Augmentin] codeine AdvReac Intermediate Dizziness, Verified 10/10/20 15:36 vomiting morphine AdvReac Intermediate Vomiting Verified 10/10/20 15:36 prednisone AdvReac Intermediate Dizziness Verified 10/10/20 15:36 Home Medications Medication Instructions Recorded Confirmed Type tramadol 50 mg PO BID PRN 05/17/18 10/10/20 History albuterol sulfate 2.5 mg INHALATION Q6H PRN #1 ml 05/26/19 10/10/20 History sennosides 8.6 mg tablet 8.6 mg PO BID PRN #180 tab 05/27/19 10/10/20 Rx budesonide-formoterol HFA 160 2 puff INHALATION BID #30.6 gm 08/05/19 10/10/20 Rx mcg-4.5 mcg/actuation aerosol inhaler albuterol sulfate 90 mcg/actuation 2 puff INHALATION Q6H PRN #18 gm 12/17/19 10/10/20 Rx aerosol inhaler ibuprofen 800 mg tablet 800 mg PO DAILY PRN #90 tab 02/06/20 10/10/20 Rx docusate sodium 100 mg capsule 100 mg PO BID PRN cap 02/26/20 10/10/20 History potassium chloride 20 mEq 20 meq PO 2XWK tab 02/26/20 10/10/20 History tablet,extended release Spiriva with HandiHaler 1 cap INHALATION QAM 08/11/20 10/10/20 History atorvastatin 20 mg PO QPM 08/11/20 10/10/20 History furosemide 20 mg PO 2XWK 08/11/20 10/10/20 History gabapentin 300 mg PO TID 08/11/20 10/10/20 History gabapentin 600 mg PO TID 08/11/20 10/10/20 History lisinopril 10 mg PO QAM 08/11/20 10/10/20 History metoprolol tartrate 25 mg PO BID 08/11/20 10/10/20 History montelukast 10 mg PO QPM 08/11/20 10/10/20 History pantoprazole 40 mg PO QAM 08/11/20 10/10/20 History Patient History Medical History Arteriosclerosis of carotid artery Bulging discs Cardiomyopathy transient, mild cardiomyopathy (2010) > resolved per subsequent 2013 ECHO, follows with cardiology (Dr. Betancur) Cholelithiasis Chronic sinusitis COPD (chronic obstructive pulmonary disease) GERD (gastroesophageal reflux disease) History of ovarian cancer dx 2016 valeria tumor - s/p SRI BSO; no chemo or radiation HTN (hypertension) Hyperlipemia Hypertrophy of both inferior nasal turbinates Migraines Morbid obesity Nasal septal deviation Neuropathy Osteoarthritis Poor historian Sleep apnea non compliant with CPAP Temporomandibular joint click Surgical History (Updated 10/10/20 @ 19:20 by William Wyman MD) History of colonoscopy History of dental surgery History of lymph node biopsy History of tonsillectomy History of total abdominal hysterectomy and bilateral salpingo-oophorectomy Hx laparoscopic cholecystectomy (10/07/20) Laparoscopic Cholecystectomy, Enterolysis, repair of enterotomy. Dr. Rebolledo 10/07/20 Hx of appendectomy Family History Family/Other Cancer Hypertension Heart disease Mother Cancer Brother Cancer Hypertension Father Heart disease Other No family history of bleeding disorder Denies family history of Ovarian cancer Prostate cancer Myocardial infarction Breast cancer Colorectal cancer Social History Smoking Status: Current every day smoker Cigarettes Per Day: 10; Second Hand Exposure: No; Do You Dip or Chew Tobacco: No; Hx Alcohol Use: Yes Alcohol type: hard liquor Hx Substance Use: No Preferred Language: Mongolian Communication Ability: Effective Mastercam Programmer Required: No Beliefs That Will Affect Care: None marital status: Single marital status details: Current Living Situation: Alone current occupational status: disabled Other Information That Helps Us Care for You: No Feels Safe at Home: Yes Safety Concerns: Feels Safe At This Time caffeine: Yes Dental Care, Regularly: Yes Physical Activity Frequency: Does not Exercise Seatbelt Use: sometimes Sunscreen Use: No Assistive Devices: Cane and Glasses Review of Systems Review of Systems: Constitutional: No fever, chills, sweats, fatigue or weakness Eyes: No diplopia, no changes in vision ENT: No sore throat, tinnitus, or trouble swallowing Respiratory: No shortness of breath, No dyspnea at rest or on exertion, no cough or sputum Cardiovascular: No chest pain, palpitations, or flutter Abdomen: + Abdominal distention, denies specific pain other than incisional pain status post cholecystectomy, last BM was 5d ago. + Nausea and vomiting as per HPI Musculoskeletal: No calf pain, No joint pain, chronic lower extremity swelling, on Lasix twice weekly Genitourinary : No dysuria or urinary frequency, + urine is burnt orange in color today Neurologic: + Peripheral neuropathy BLE up to the level of the knee, no difficulty with ambulation, no sensory or motor deficits Psychiatric: No depression or anxiety symptoms Endocrine: No fatigue, No weight changes Integumentary: No itch, No rash Physical Exam Physical Exam: General: awake, alert, no apparent distress, + morbidly obese BMI 45.4 Head: Normocephalic, atraumatic ENT: PERRL, EOMI, no pharyngeal exudate, mucous membranes moist, + NG tube in place, draining bilious liquid, NG to LIS Chest: Clear to auscultation, on room air, no adventitious breath sounds Cardiac: Regular rate and rhythm, no murmur, no JVD, normal peripheral pulses, good capillary refill Abdominal: + Hypoactive BS x4 quadrants, mildly distended, nontympanic to percussion, minimally tender to palpation around incision sites, no rebound or guarding Extremities: Normal inspection, no peripheral edema or erythema, calfs nontender to palpation Psych: Normal mood and affect Neuro: AAO x 3, strength intact bilaterally and rated 5/5, no motor deficits, speech is clear, no peripheral sensory deficits Results & Data Results & Data ([facility]) Vital Signs (Past 12 Hours) Vital Signs Temp Pulse Pulse Resp BP BP Pulse Ox 10/10/20 15:52 93 H 20 155/60 H 98 10/10/20 15:51 93 H 18 10/10/20 15:23 95 H 17 96 10/10/20 15:22 94 H 19 113/70 94 10/10/20 15:20 94 H 95 H 20 117/78 97 10/10/20 15:00 98 H 18 117/78 95 10/10/20 14:30 95 H 18 96 10/10/20 14:11 103 H 16 97 10/10/20 14:09 36.7 C 107 H 18 158/106 H 97 10/10/20 14:07 102 H 14 158/[address] OF THE ABDOMEN AND PELVIS WITH CONTRAST CLINICAL HISTORY: GB surg, pain, bloated, vomiting COMPARISON STUDY: CT of the abdomen and pelvis July 14, 2020. TECHNIQUE: Following IV administration of 93 mL of Optiray-320, axial images of the abdomen and pelvis were obtained from the lung bases to the proximal femurs. Images were reviewed in the axial, sagittal, and coronal planes. IV contrast was administered without complication. Automated exposure control was utilized for the study. A dose lowering technique was utilized adhering to the principles of ALARA. CT DOSE: 1426.57 mGy.cm FINDINGS: Lung bases are unremarkable. There is a prominent right cardiophrenic angle lymph node that measures 0.9 cm in short axis diameter. This is indeterminate although probably benign. The stomach is fluid-filled and distended. The spleen, adrenal glands, kidneys and pancreas are unremarkable. There is no hydronephrosis. There is no pancreatic ductal dilatation. There is no biliary ductal dilatation status post recent cholecystectomy. There is trace fluid and infiltration within the cholecystectomy bed. There is postoperative findings within the subcutaneous tissues of the anterior abdominal wall with a few locules of gas. This is postsurgical. The proximal to mid small bowel is moderately dilated and fluid-filled. There is a transition point within the left anterior abdomen on image 222 of 416. The distal small bowel is markedly decompressed. There is mild mesenteric infiltration and trace interloop ascites. No pneumatosis, free air or portal venous gas is present. Note is made of a fat- containing umbilical hernia. No definite small bowel loops extend into the hernia sac and this does not account for the small bowel obstruction. Colonic diverticulosis is noted without evidence for acute diverticulitis. There is a moderate amount stool within the rectum. Uterus and ovaries are surgically absent. Calcifications within the right hepatic lobe are benign. IMPRESSION: 1. Findings consistent with a small bowel obstruction with transition point within the mid small bowel within the left anterior abdomen. Moderately dilated fluid-filled proximal small bowel with markedly decompressed distal small bowel. Statistically, this obstruction is due to adhesions. Mildly distended fluid- filled stomach. Nasogastric tube placement might be considered. 2. Postoperative findings consistent with recent cholecystectomy. Trace fluid and infiltration within the cholecystectomy bed which is not unexpected in the early postoperative setting. No biliary ductal dilatation. 3. Fat-containing umbilical hernia. No definite small bowel loops within the hernia sac and this hernia does not account for the small bowel obstruction. 4. Colonic diverticulosis without evidence for acute diverticulitis. 5. Moderate amount stool within the colon. PG Care Time/CCT Total # of Minutes Spent Total Time Spent with Patient: Total time spent is greater than 50% in coordination of care (as documented) at patient's floor/unit and/or counseling patient: Coding Level of Care Code 67747 Inpt Consult Level 4 Diagnoses Small bowel obstruction K56.609 Chronic diastolic CHF (congestive heart failure) I50.32 Hypercholesterolemia E78.00 Cardiomyopathy I42.9 Hypertension I10 COPD (chronic obstructive pulmonary disease) J44.9 Obstructive sleep apnea of adult G47.33 Acid reflux disease with ulcer K21.9 Peripheral neuropathy G62.9 Vitamin D deficiency E55.9
[2020-10-10] MEDS ORDERED: ALBUTEROL HFA 8 GM INHALER INH PRN (17:12)
[2020-10-10] MEDS ORDERED: DICLOFENAC SOD 1% GEL 100 GM TUBE EXT PRN (18:49)
[2020-10-10] MEDS ORDERED: METOPROLOL TARTRATE 1 MG/ML VIAL IV PRN (18:49)
[2020-10-10] MEDS ORDERED: HYDROmorphone INJ 0.5 MG/0.5 ML SYR IV PRN (18:49)
[2020-10-10] MEDS ORDERED: PROMETHAZINE HCL 12.5 MG in SODIUM CHLORIDE 0.9% 50 ML IV PRN (18:49)
[2020-10-10] MEDS ORDERED: HYDROmorphone INJ 1 MG/ML SYRINGE IV PRN (18:49)
[2020-10-10] MEDS ORDERED: D5W AND LACTATED RINGERS 1,000 ML IV SCH (18:49)
[2020-10-10] MEDS ORDERED: METOPROLOL TARTRATE 1 MG/ML VIAL IV SCH (18:49)
[2020-10-10] MEDS ORDERED: PROMETHAZINE HCL 25 MG in SODIUM CHLORIDE 0.9% 50 ML IV PRN (18:49)
[2020-10-10] MEDS: NSS + 20MEQ KCL 20 MEQ/1,000 ML BAG IV SCH (19:37)
[2020-10-10] MEDS: CHLORASEPTIC 1.4% SOLN 180 ML BTL MT PRN (20:40)
[2020-10-10] MEDS: NICOTINE 7 MG/24 HR TDSY TD PRN (20:40)
[2020-10-10] MEDS ORDERED: BUDESONIDE/FORMOTEROL FUMARATE 160/4.5 60 PUFFS/INHALER INH SCH (21:00)
[2020-10-10] MEDS: METOPROLOL TARTRATE 1 MG/ML VIAL IV SCH (23:41)
[2020-10-11] MEDS: NSS + 20MEQ KCL 20 MEQ/1,000 ML BAG IV SCH ×2 (05:16→16:09)
[2020-10-11] MEDS: METOPROLOL TARTRATE 1 MG/ML VIAL IV SCH ×3 (06:06→17:45)
[2020-10-11] MEDS: ACETAMINOPHEN 1,000 MG/100 ML VIAL IV PRN ×2 (06:07→23:00)
[2020-10-11 07:22] LABS: Albumin Globulin Ratio 0.8 (0.9-2); Albumin Level 3.3 gm/dl (3.4-5.0); BUN Creatinine Ratio 10.9 (10-20); Bilirubin,Total 0.7 mg/dl (0.2-1); Calcium 9.7 mg/dl (8.5-10.1); Creatinine Clr Calc Pharmacy 70.4 ml/min; Est GFR (African American) 64.9; Globulin 3.9 gm/dl (2.5-4.0); Magnesium 1.9 mg/dl (1.8-2.4); Phosphorus 4.1 mg/dl (2.5-4.9); Potassium 3.8 mmol/L (3.5-5.1); Total Protein 7.2 gm/dl (6.4-8.2)
[2020-10-11 07:59] LABS: Mean Platelet Volume 10.2 fL (7.4-10.4); Platelet Count 345 K/uL (130-400)
[2020-10-11 08:00] LABS: ALC (manual) 1.48 K/uL (1.2-3.4); ANC (manual) 7.41 K/uL (1.4-6.5); Eosinophils # (manual) 0.32 K/uL (0-0.5); Eosinophils % (manual) 3.4 %; Hematocrit (blood only) 41.4 % (37-47); Hemoglobin 14.1 g/dL (12.0-16.0); Lymphocytes # (manual) 1.48 K/uL (1.2-3.4); Lymphocytes % (manual) 15.5 %; Mean Corpuscular Hemoglobin 30.5 pg (25-34); Mean Corpuscular Hgb Conc 34.1 g/dL (32-36); Mean Corpuscular Volume 89.4 fL (80-100); Monocytes # (manual) 0.32 K/uL (0.11-0.59); Monocytes % (manual) 3.4 %; Neutrophils # (manual) 7.41 K/uL (1.4-6.5); Neutrophils % (manual) 77.7 %; Platelet Estimate Normal (Normal); RDW Coefficient of Variation 13.6 % (11.5-14.5); RDW Standard Deviation 44.6 fL (36.4-46.3); Red Blood Count 4.63 M/uL (4.2-5.4); White Blood Count 9.54 K/uL (4.8-10.8)
[2020-10-11] MEDS: FLUTICASONE/VILANTEROL 100/25MCG 14 PUFFS/INHALER INH SCH (08:09)
[2020-10-11] MEDS: ENOXAPARIN INJ 40 MG/0.4 ML SYR SQ SCH (08:09)
[2020-10-11] MEDS: UMECLIDINIUM BROMIDE 62.5MCG/BLISTER 7 PUFFS/INHALER INH SCH (08:09)
--- NOTE | 2020-10-11 08:13 | XRay Report ---
ABDOMEN 2 VIEWS CLINICAL HISTORY: Follow-up small bowel obstruction. FINDINGS: Supine and erect abdominal radiographs are correlated with abdominal CT dated 10/10/2020. Th ere is evidence of persistent small bowel obstruction. Distended loops of proximal small bowel measur e up to 5 cm in diameter. No evidence of intraperitoneal free air is seen on the upright view. Cholec ystectomy clips are seen in the right upper quadrant, with additional surgical clips noted in the pel vis. There are no abnormal abdominal calcifications. The bladder is filled with excreted IV contrast. The skeletal structures are osteopenic and appear intact. Lumbosacral spondylosis is noted. The lung bases are clear as imaged. IMPRESSION: Persistent small bowel obstruction. Electronically signed by: William Silva M.D. 10/11/2020 8:11 AM
[2020-10-11] MEDS: FAMOTIDINE 20 MG in SYRINGE 3 ML IV SCH (08:38)
[2020-10-11] MEDS ORDERED: FUROSEMIDE 40 MG/4 ML VIAL IV SCH (09:15)
[2020-10-11] MEDS ORDERED: FUROSEMIDE 20 MG in SYRINGE 0 ML IV SCH (09:15)
--- NOTE | 2020-10-11 09:47 | Surgery Progress Note ---
Date of Service October 11, 2020 Assessment & Plan (1) Small bowel obstruction: POD 4 lap segundo/lysis of adhesions/enterotomy repair leave NG out for now unless she has further N/V NPO, IVF Dr. Thompson-with patient's high NG output I feel that she may benefit from reinsertion of the NG tube I have discussed this with her and she is willing to try She did say she passes small amount of gas Admission and Anticipated Discharge Date Admission Date: October 10, 2020 Subjective less cramping, no nausea, some flatus, no worse since NG came out Physical Exam Gastrointestinal (Abdomen): Inspection/Auscultation: + abdomen distended (minimal) and + abdominal surgical incision (dry, no erythema) Percussion/Palpation: abdomen soft; abdomen nontender Results & Data ([facility]) Vital Signs (Past 12 Hours) Vital Signs Temp Pulse Pulse Resp BP BP BP 10/11/20 07:35 36.6 C 82 20 130/81 10/11/20 07:00 87 10/11/20 06:06 105 H 131/73 10/11/20 06:03 105 H 131/73 10/11/20 03:15 36.6 C 97 H 18 114/66 10/10/20 23:41 95 H 121/77 10/10/20 23:28 36.5 C 95 H 18 121/77 10/10/20 23:00 89 Pulse Ox 10/11/20 07:35 95 10/11/20 07:00 10/11/20 06:06 10/11/20 06:03 10/11/20 03:15 95 10/10/20 23:41 10/10/20 23:28 96 10/10/20 23:00 PG Care Time/CCT Total # of Minutes Spent Total Time Spent with Patient: Total time spent is greater than 50% in c oordination of care (as documented) at patient's floor/unit and/or counseling patient: Coding Level of Care Code None Diagnoses Small bowel obstruction K56.609
--- NOTE | 2020-10-11 13:20 | Electrocardiogram Report ---
Test Reason : Blood Pressure : / mmHG Vent. Rate : 094 BPM Atrial Rate : 094 BPM P-R Int : 154 ms QRS Dur : 084 ms QT Int : 354 ms P-R-T Axes : 044 033 059 degrees QTc Int : 442 ms Normal sinus rhythm Nonspecific T wave abnormality Abnormal ECG When compared with ECG of 20-AUG-2020 09:49, Premature ventricular complexes are no longer Present Nonspecific T wave abnormality, worse in Anterior leads Confirmed by Jefferson Betancur ([id number]) on 10/11/2020 1:19:42 PM Referred By: REFERRED SELF Confirmed By:Jefferson Betancur
[2020-10-11] MEDS: ONDANSETRON INJ 2 MG/ML 2 ML VIAL IV PRN ×2 (15:44→23:00)
--- NOTE | 2020-10-11 17:17 | XRay Report ---
KUB HISTORY: Status post placement of an enteric tube ng tube placement; sbo COMPARISON: KUB of same day at 7:53 AM FINDINGS: Status post placement of an enteric tube with distal tip projected within the spectrum loca tion of the proximal gastric body. Persistent small bowel dilation. The lower abdomen is excluded fro m the [id number]. No urolith identified. No acute fracture. IMPRESSION: 1. Status post placement of an enteric tube with distal tip terminating in the expected location of t he proximal stomach. 2. Persistent small bowel obstruction. ACT 112: Negative or not required by law. The above report was generated using voice recognition software. It may contain grammatical, syntax o r spelling errors. Electronically signed by: Jorge Stevens M.D. 10/11/2020 5:16 PM
--- NOTE | 2020-10-11 19:31 | Hospitalist Progress Note ---
Date of Service October 11, 2020 Assessment & Plan (1) Small bowel obstruction: Ongoing clinically & radiographically. NG tube dislodged this am; placed back; repeat KUB shows proper position. Cont NPO, IVF, NG. Gen surg managing. SBO is in setting of lap segundo w/ LOS on 10/07/20. (2) S/P cholecystectomy: POD #4 from such, with LOS and repair of enterostomy. Stable from lap segundo standpoint. (3) Chronic diastolic CHF (congestive heart failure): Continue metoprolol 2.5mg IV q6h due to NPO status/NG tube. Holding lisinopril. Usually uses lasix 20mg 2x/week at home. Lasix 20mg IV given x 1 to keep I/O balance today. Remains compensated. (4) Hypercholesterolemia: Holding statin therapy for now with NPO status (5) Cardiomyopathy: h/o early but now resolved with normal EF. (6) Hypertension: IV metoprolol (7) COPD (chronic obstructive pulmonary disease): Cont Symbicort, Spiriva, and as needed Ventolin. NO exacerbation at this time. Stable O2 sats in room air. (8) Obstructive sleep apnea of adult: -Does not use CPAP by report (9) Acid reflux disease with ulcer: Continue Famotidine 20 mg IV daily (10) Peripheral neuropathy: holding gabapentin for now with NPO status, can use Voltaren gel or lidocaine patch for pain relief IV tylenol prn as well (11) Vitamin D deficiency: hold supplementation (12) Hyponatremia: resolved w/ isotonic fluids. cont such with NPO status and NG tube decompression. (13) Morbid obesity with BMI of 45.0-49.9, adult: BMI 45.4 (14) DVT prophylaxis: lovenox 40mg daily Admission and Anticipated Discharge Date Admission Date: October 10, 2020 Subjective patient's NG tube dislodged and came out this am during x-rays. when I saw her on rounds she was very uncomfortable, c/o waves of crampy abdominal pain. no vomiting since NG tube dislodgement but some nausea. passed tiny amount of flatus this am only. since NG tube dislodgement bloating has worsened. Review of Systems Constitutional: no fever Respiratory: no cough and no dyspnea Cardiovascular: no chest pain Physical Exam Constitutional: + acute distress (2nd abd pain ) and + ill appearing; no altered mental status ENMT: Mouth: + dry oral mucous membranes Respiratory: normal respiratory effort, lungs clear to auscultation Cardiovascular: Rate/Rhythm: regular rate and regular rhythm Heart Sounds: normal S1 and normal S2; no murmur Vessels: posterior tibial pulses present and dorsalis pedis pulses present; no JVD Extremities: no edema Gastrointestinal (Abdomen): Inspection/Auscultation: + abdomen distended and normal bowel sounds Percussion/Palpation: + abdomen tender; no guarding and no hepatosplenomegaly Skin: abd wall incisions c/d/i; mild erythema just inferior to umbilicus nearing the suprapubic region Psychiatric: A+Ox3, euthymic affect Results & Data Results & Data ([facility]) Vital Signs (Past 12 Hours) Vital Signs Temp Pulse Pulse Resp BP BP Pulse Ox 10/11/20 17:45 114 H 149/78 H 10/11/20 15:17 36.8 C 98 H 20 162/89 H 99 10/11/20 14:20 83 10/11/20 13:57 85 137/81 10/11/20 11:13 36.6 C 70 20 137/57 L 96 10/11/20 07:35 36.6 C 82 20 130/81 95 Laboratory Results Laboratory Results - last 24 hr 10/11/20 10/11/20 10/11/20 06:08 06:08 06:08 WBC 9.54 RBC 4.63 Hgb 14.1 Hct 41.4 MCV 89.4 MCH 30.5 MCHC 34.1 RDW Std Deviation 44.6 RDW Coeff of Nico 13.6 Plt Count 345 MPV 10.2 Neutrophils % (Manual) 77.7 Lymphocytes % (Manual) 15.5 Monocytes % (Manual) 3.4 Eosinophils % (Manual) 3.4 Neutrophils # (Manual) 7.41 H Total Absolute Neuts 7.41 H Lymphocytes # (Manual) 1.48 Total Abs Lymphocytes 1.48 Monocytes # (Manual) 0.32 Eosinophils # (Manual) 0.32 Platelet Estimate Normal Sodium 137 Potassium 3.8 Chloride 101 Carbon Dioxide 28 Anion Gap 8.0 BUN 12 Creatinine 1.07 Est Cr Clr Drug Dosing 70.4 Est GFR ( Amer) 64.9 Est GFR (Non-Af Amer) 56.0 BUN/Creatinine Ratio 10.9 Glucose 93 Calcium 9.7 Phosphorus 4.1 3.9 Magnesium 1.9 Total Bilirubin 0.7 AST 12 L ALT 22 Alkaline Phosphatase 93 Total Protein 7.2 Albumin 3.3 L Globulin 3.9 Albumin/Globulin Ratio 0.8 L PG Care Time/CCT Total # of Minutes Spent Total Time Spent with Patient: Total time spent is greater than 50% in coordination of care (as documented) at patient's floor/unit and/or counseling patient: Coding Level of Care Code 94265 Subseq Hosp Care Lvl 2 Diagnoses Small bowel obstruction K56.609 S/P cholecystectomy Z90.49 Chronic diastolic CHF (congestive heart failure) I50.32 Hypercholesterolemia E78.00 Cardiomyopathy I42.9 Hypertension I10 COPD (chronic obstructive pulmonary disease) J44.9 Obstructive sleep apnea of adult G47.33 Acid reflux disease with ulcer K21.9 Peripheral neuropathy G62.9 Vitamin D deficiency E55.9 Hyponatremia E87.1 Morbid obesity with BMI of 45.0-49.9, adult E66.01; Z68.42 DVT prophylaxis Z29.9
[2020-10-12] MEDS: METOPROLOL TARTRATE 1 MG/ML VIAL IV SCH ×5 (00:12→23:59)
[2020-10-12] MEDS: NSS + 20MEQ KCL 20 MEQ/1,000 ML BAG IV SCH ×3 (04:03→22:46)
[2020-10-12] MEDS: ONDANSETRON INJ 2 MG/ML 2 ML VIAL IV PRN (06:44)
--- NOTE | 2020-10-12 07:39 | Surgery Progress Note ---
Date of Service October 12, 2020 Assessment & Plan (1) SBO (small bowel obstruction): POD 5 lap segundo/lysis of adhesions/enterotomy repair NGT re-inserted yesterday; 1400cc output since Still having some nausea. No flatus or BM. Will plan to keep NGT in today Encourage activity as tolerates Appreciate medicine assistance with patient as above. main c/o is back pain from lying in bed. NGT with high outputs. continue conservative management. if NGT output slows will attempt sbft in next couple of days. suspect swelling at enterotomy closure site. Admission and Anticipated Discharge Date Admission Date: October 10, 2020 Subjective Patient states she is not feeling too well this AM. Says she still has some nausea despite NGT, but no further emesis. Denies passing further flatus and no BM. Has some RUQ pain. Says she usually sleeps in her recliner at home, so is not very comfortable without it. Physical Exam Physical Exam: awake, sitting up in chair Respiratory: normal respiratory effort Gastrointestinal (Abdomen): Inspection/Auscultation: + abdominal surgical incision (c/d/i; mild ecchymosis molly-incisionally. no evidence of infection) Percussion/Palpation: + abdomen tender (some discomfort in RUQ region) and abdomen soft NGT with light brown/bilious drainage Results & Data ([facility]) Vital Signs (Past 12 Hours) Vital Signs Temp Pulse Pulse Resp BP BP BP 10/12/20 07:27 91 H 10/12/20 05:58 81 138/81 10/12/20 03:09 36.5 C 89 20 134/83 10/12/20 00:12 87 135/81 10/11/20 23:27 88 10/11/20 22:58 37.0 C 84 18 131/73 10/11/20 19:54 37.1 C 92 H 20 146/81 H Pulse Ox 10/12/20 07:27 10/12/20 05:58 10/12/20 03:09 98 10/12/20 00:12 10/11/20 23:27 10/11/20 22:58 91 10/11/20 19:54 96 PG Care Time/CCT Total # of Minutes Spent Total Time Spent with Patient: Total time spent is greater than 50% in coordination of care (as documented) at patient's floor/unit and/or counseling patient: Coding Level of Care Code None Diagnoses SBO (small bowel obstruction) K56.609
[2020-10-12] MEDS: ENOXAPARIN INJ 40 MG/0.4 ML SYR SQ SCH (08:06)
[2020-10-12] MEDS: UMECLIDINIUM BROMIDE 62.5MCG/BLISTER 7 PUFFS/INHALER INH SCH (08:06)
[2020-10-12] MEDS: FAMOTIDINE 20 MG in SYRINGE 3 ML IV SCH (08:06)
[2020-10-12] MEDS: FLUTICASONE/VILANTEROL 100/25MCG 14 PUFFS/INHALER INH SCH (08:06)
[2020-10-12] MEDS: NICOTINE 7 MG/24 HR TDSY TD PRN (08:07)
[2020-10-12 09:57] LABS: Base Excess VBG 1.7 mEq/L; HCO3 VBG 25 mmol/L; PCO2 VBG 37 mmHg (38-50); PO2 VBG 27 mmHg; pH VBG 7.45 (7.36-7.41)
[2020-10-12 09:57] LABS: Basophils # (auto) 0.02 K/uL (0-0.2); Basophils % (auto) 0.2 %; Hematocrit (blood only) 38.1 % (37-47); Hemoglobin 13.1 g/dL (12.0-16.0); Immature Granulocytes # (auto) 0.05 K/uL (0.00-0.02); Immature Granulocytes % (auto) 0.5 %; Lymphocytes % (auto) 10.8 %; Mean Corpuscular Hemoglobin 30.5 pg (25-34); Mean Corpuscular Hgb Conc 34.4 g/dL (32-36); Mean Corpuscular Volume 88.8 fL (80-100); Mean Platelet Volume 9.7 fL (7.4-10.4); Monocytes # (auto) 0.55 K/uL (0.11-0.59); Monocytes % (auto) 5.4 %; Neutrophils # (auto) 8.36 K/uL (1.4-6.5); Neutrophils % (auto) 82.1 %; Platelet Count 393 K/uL (130-400); RDW Coefficient of Variation 13.3 % (11.5-14.5); RDW Standard Deviation 43.4 fL (36.4-46.3); Red Blood Count 4.29 M/uL (4.2-5.4); White Blood Count 10.18 K/uL (4.8-10.8)
[2020-10-12 10:06] LABS: Oxygen Saturation VBG < 60.0 %
[2020-10-12 10:09] LABS: Appearance Urine Clear (Clear); Bacteria Urine Automated Negative (Negative); Blood Urine 1+ (Negative); Color Urine Dark Yellow; Epithelial Cell Urine Auto >30 /lpf (0-5); Glucose Urine UA Negative (Negative); Ketones Urine 3+ (Negative); Leukocyte Esterase Urine Negative (Negative); Nitrite Urine Negative (Negative); RBC Urine Automated >30 /hpf (0-4); Specific Gravity Urine 1.033 (1.000-1.030); Urobilinogen Urine Negative (Negative)
[2020-10-12 10:10] LABS: Bilirubin Urine 2+ (Negative); Protein Urine Trace (Negative)
[2020-10-12 10:14] LABS: BUN Creatinine Ratio 12.2 (10-20); Calcium 9.6 mg/dl (8.5-10.1); Creatinine Clr Calc Pharmacy 73.1 ml/min; Est GFR (African American) 68.8; Est GFR (Non-African American) 59.3; Potassium 3.6 mmol/L (3.5-5.1)
[2020-10-12] MEDS: GABAPENTIN 250 MG/5 ML 470 ML BTL NG SCH ×3 (10:26→20:36)
[2020-10-12 11:38] LABS: Albumin Level 3.4 gm/dl (3.4-5.0); Bilirubin Direct 0.3 mg/dl (0-0.2); Bilirubin,Total 0.7 mg/dl (0.2-1); Total Protein 7.2 gm/dl (6.4-8.2)
[2020-10-12] MEDS: CHLORASEPTIC 1.4% SOLN 180 ML BTL MT PRN (12:27)
--- NOTE | 2020-10-12 19:45 | Hospitalist Progress Note ---
Date of Service October 12, 2020 Assessment & Plan (1) Medication withdrawal: I believe the pt's symptoms this am were due to lack of gabapentin for 3-4 days. All symptoms (restlessness, sweats, etc) resolved with resumption of gabapentin. She cannot swallow the tabs. Give gabapentin liquid 900mg TID via NG tube; clamp NG for 30min after administration to allow absorption. (2) Small bowel obstruction: Ongoing clinically & radiographically. But did pass some flatus this am and she is softer on exam today. Cont NPO, IVF, NG. Gen surg managing. SBO is in setting of lap segundo w/ lysis of adhesions on 10/07/20. (3) S/P cholecystectomy: POD #5 from such, with LOS and repair of enterostomy. Stable from lap segundo standpoint. LFTs wnl. (4) Chronic diastolic CHF (congestive heart failure): Continue metoprolol 2.5mg IV q6h due to NPO status/NG tube. Holding lisinopril. Usually uses lasix 20mg 2x/week at home. Lasix 20mg IV given x 1 to keep I/O balance yesterday. Remains compensated on exam. (5) Hypercholesterolemia: Holding statin therapy for now with NPO status (6) Cardiomyopathy: h/o early 2009's but now resolved with normal EF. (7) Hypertension: IV metoprolol (8) COPD (chronic obstructive pulmonary disease): Cont Symbicort, Spiriva, and as needed Ventolin. NO exacerbation at this time. Stable O2 sats in room air. VBG this am wnl. (9) Obstructive sleep apnea of adult: -Does not use CPAP by report (10) Acid reflux disease with ulcer: Continue Famotidine 20 mg IV daily (11) Peripheral neuropathy: along with chronic lumbar back pain and chronic restless legls resumed gabapentin today 900mg TID (12) Vitamin D deficiency: hold supplementation (13) Hyponatremia: resolved w/ isotonic fluids. cont IVF with NPO status and NG tube decompression. 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 was having sweats/chills, and was very restless. having waves of abd pain in central abdomen. after reviewing chart it appeared patient has NOT had her gabapentin since admission. she takes such for chronic back pain and chronic restless legs. she confirmed a dose of 900mg TID. gabapentin liquid given by NG tube - tube clamped for 30 minutes. after getting gabapentin she felt much better and was able to rest in the recliner near bedside. NG tube continues to put out copious amounts of bile. she DID pass some minor flatus this am and her abdomen is softer today. denies any dyspnea. denies cp. having sore throat with left ear pain. tele overnight with NSR. Review of Systems Constitutional: + chills and + sweats Respiratory: no cough Cardiovascular: no chest pain Gastrointestinal: + abdominal pain and + bloating; no nausea and no vomiting Musculoskeletal: + back pain Neurologic: + restless legs Physical Exam Constitutional: + ill appearing; no acute distress and no altered mental status ENMT: Ears: + TM abnormality (L - retracted; normal landmarks however; no effusion) Mouth: + dry oral mucous membranes Respiratory: normal respiratory effort, lungs clear to auscultation Cardiovascular: Rate/Rhythm: regular rate and regular rhythm Heart Sounds: normal S1 and normal S2; no murmur Vessels: posterior tibial pulses present and dorsalis pedis pulses present; no JVD Extremities: no edema Gastrointestinal (Abdomen): Inspection/Auscultation: + abdomen distended (But less than yesterday's exam) and + hypoactive bowel sounds Percussion/Palpation: + abdomen tender (Central abdomen); no guarding and no hepatosplenomegaly Skin: abdominal wall incisions c/d/i Neurologic: not confused knows day of week; can recite months of year backwards Psychiatric: A+Ox3, euthymic affect Results & Data Results & Data ([facility]) Vital Signs (Past 12 Hours) Vital Signs Temp Pulse Pulse Resp BP BP BP 10/12/20 19:35 36.9 C 56 L 18 10/12/20 18:34 97 H 155/96 H 10/12/20 17:00 94 H 10/12/20 16:09 36.9 C 56 L 18 147/73 H 10/12/20 11:34 36.9 C 76 20 123/73 10/12/20 08:51 36.5 C 83 18 157/82 H Pulse Ox 10/12/20 19:35 96 10/12/20 18:34 10/12/20 17:00 10/12/20 16:09 96 10/12/20 11:34 98 10/12/20 08:51 99 Laboratory Results Laboratory Results - last 24 hr 10/12/20 10/12/20 10/12/20 09:40 09:40 09:40 WBC 10.18 RBC 4.29 Hgb 13.1 Hct 38.1 MCV 88.8 MCH 30.5 MCHC 34.4 RDW Std Deviation 43.4 RDW Coeff of Nico 13.3 Plt Count 393 MPV 9.7 Immature Gran % (Auto) 0.5 Neut % (Auto) 82.1 Lymph % (Auto) 10.8 [place] % (Auto) 5.4 Eos % (Auto) 1.0 Baso % (Auto) 0.2 Neut # (Auto) 8.36 H Lymph # (Auto) 1.10 L [place] # (Auto) 0.55 Eos # (Auto) 0.10 Baso # (Auto) 0.02 Immature Gran # (Auto) 0.05 H VBG pH VBG pCO2 VBG pO2 VBG HCO3 VBG O2 Saturation VBG Base Excess Barometric Pressure Sodium 140 Potassium 3.6 Chloride 106 Carbon Dioxide 26 Anion Gap 9.0 BUN 12 Creatinine 1.02 Est Cr Clr Drug Dosing 73.1 Est GFR ( Amer) 68.8 Est GFR (Non-Af Amer) 59.3 BUN/Creatinine Ratio 12.2 Glucose 88 Calcium 9.6 Total Bilirubin 0.7 Direct Bilirubin 0.3 H AST 9 L ALT 21 Alkaline Phosphatase 89 Total Protein 7.2 Albumin 3.4 Urine Color Urine Appearance Urine pH Ur Specific [place] Urine Protein Urine Glucose (UA) Urine Ketones Urine Blood Urine Nitrite Urine Bilirubin Urine Urobilinogen Ur Leukocyte Esterase Urine WBC (Auto) Urine RBC (Auto) U Hyaline Cast (Auto) U Epithel Cells (Auto) Urine Bacteria (Auto) 10/12/20 10/12/20 09:45 09:50 WBC RBC Hgb Hct MCV MCH MCHC RDW Std Deviation RDW Coeff of Nico Plt Count MPV Immature Gran % (Auto) Neut % (Auto) Lymph % (Auto) [place] % (Auto) Eos % (Auto) Baso % (Auto) Neut # (Auto) Lymph # (Auto) [place] # (Auto) Eos # (Auto) Baso # (Auto) Immature Gran # (Auto) VBG pH 7.45 H VBG pCO2 37 L VBG pO2 27 VBG HCO3 25 VBG O2 Saturation < 60.0 VBG Base Excess 1.7 Barometric Pressure 723.9 Sodium Potassium Chloride Carbon Dioxide Anion Gap BUN Creatinine Est Cr Clr Drug Dosing Est GFR ( Amer) Est GFR (Non-Af Amer) BUN/Creatinine Ratio Glucose Calcium Total Bilirubin Direct Bilirubin AST ALT Alkaline Phosphatase Total Protein Albumin Urine Color Dark Yellow Urine Appearance Clear Urine pH 8.0 H Ur Specific [place] 1.033 H Urine Protein Trace H Urine Glucose (UA) Negative Urine Ketones 3+ H Urine Blood 1+ H Urine Nitrite Negative Urine Bilirubin 2+ H Urine Urobilinogen Negative Ur Leukocyte Esterase Negative Urine WBC (Auto) 1-5 Urine RBC (Auto) >30 H U Hyaline Cast (Auto) 1-5 U Epithel Cells (Auto) >30 H Urine Bacteria (Auto) Negative PG Care Time/CCT Total # of Minutes Spent Total Time Spent with Patient: Total time spent is greater than 50% in coordination of care (as documented) at patient's floor/unit and/or counseling patient: Coding Level of Care Code 42032 Subseq Hosp Care Lvl 3 Diagnoses Medication withdrawal F19.239 Small bowel obstruction K56.609 S/P cholecystectomy Z90.49 Chronic diastolic CHF (congestive heart failure) I50.32 Hypercholesterolemia E78.00 Cardiomyopathy I42.9 Hypertension I10 COPD (chronic obstructive pulmonary disease) J44.9 Obstructive sleep apnea of adult G47.33 Acid reflux disease with ulcer K21.9 Peripheral neuropathy G62.9 Vitamin D deficiency E55.9 Hyponatremia E87.1 Morbid obesity with BMI of 45.0-49.9, adult E66.01; Z68.42 Tobacco dependence F17.200 DVT prophylaxis Z29.9
[2020-10-12] MEDS: ACETAMINOPHEN 1,000 MG/100 ML VIAL IV PRN (22:20)
[2020-10-13 05:54] LABS: Hematocrit (blood only) 37.1 % (37-47); Hemoglobin 12.1 g/dL (12.0-16.0); Mean Corpuscular Hemoglobin 29.4 pg (25-34); Mean Corpuscular Hgb Conc 32.6 g/dL (32-36); Mean Platelet Volume 9.5 fL (7.4-10.4); Platelet Count 349 K/uL (130-400); RDW Coefficient of Variation 13.3 % (11.5-14.5); Red Blood Count 4.12 M/uL (4.2-5.4); White Blood Count 9.69 K/uL (4.8-10.8)
[2020-10-13] MEDS: METOPROLOL TARTRATE 1 MG/ML VIAL IV SCH ×4 (06:37→23:55)
[2020-10-13 06:38] LABS: BUN Creatinine Ratio 13.1 (10-20); Calcium 8.5 mg/dl (8.5-10.1); Creatinine Clr Calc Pharmacy 94.4 ml/min; Est GFR (African American) 93.6; Est GFR (Non-African American) 80.8; Potassium 3.9 mmol/L (3.5-5.1)
--- NOTE | 2020-10-13 08:43 | Surgery Progress Note ---
Date of Service October 13, 2020 Assessment & Plan (1) SBO (small bowel obstruction): POD 6 lap segundo/lysis of adhesions/enterotomy repair NGT 900cc documented Plan to keep NGT in place until return of bowel function May consider SBFT in near future Encourage activity pt seen. feeling better than yesterday. no bowel fx yet. she did have urges this am will recheck KUB tomorrow. keep ngt. sbft tomorrow or sunday. Admission and Anticipated Discharge Date Admission Date: October 10, 2020 Subjective Patient denies passing flatus or BM. Denies nausea/vomiting. Still having some right sided abdominal pain. Patient states she is feeling more comfortable in recliner chair. Physical Exam Physical Exam: resting in recliner Respiratory: normal respiratory effort Gastrointestinal (Abdomen): Inspection/Auscultation: + abdominal surgical incision (c/d/i, some molly-incisional ecchymosis noted); abdomen not distended Percussion/Palpation: + abdomen tender (some discomfort to palpation in epigastric/ right upper abdomen) and abdomen soft NGT with 900cc brown output Results & Data ([facility]) Vital Signs (Past 12 Hours) Vital Signs Temp Pulse Pulse Resp BP BP BP 10/13/20 07:57 70 10/13/20 07:30 36.6 C 75 20 164/83 H 10/13/20 06:37 82 166/97 H 10/13/20 04:00 36.8 C 72 18 146/82 H 10/13/20 00:00 81 10/12/20 23:59 73 141/83 H 10/12/20 23:56 36.5 C 73 18 141/83 H Pulse Ox 10/13/20 07:57 10/13/20 07:30 95 10/13/20 06:37 10/13/20 04:00 95 10/13/20 00:00 10/12/20 23:59 10/12/20 23:56 97 PG Care Time/CCT Total # of Minutes Spent Total Time Spent with Patient: Total time spent is greater than 50% in coordination of care (as documented) at patient's floor/unit and/or counseling patient: Coding Level of Care Code None Diagnoses SBO (small bowel obstruction) K56.609
[2020-10-13] MEDS: NSS + 20MEQ KCL 20 MEQ/1,000 ML BAG IV SCH ×2 (09:13→20:36)
[2020-10-13] MEDS: ENOXAPARIN INJ 40 MG/0.4 ML SYR SQ SCH (09:13)
[2020-10-13] MEDS: FLUTICASONE/VILANTEROL 100/25MCG 14 PUFFS/INHALER INH SCH (09:14)
[2020-10-13] MEDS: UMECLIDINIUM BROMIDE 62.5MCG/BLISTER 7 PUFFS/INHALER INH SCH (09:14)
[2020-10-13] MEDS: GABAPENTIN 250 MG/5 ML 470 ML BTL NG SCH ×3 (09:17→20:36)
[2020-10-13] MEDS: FAMOTIDINE 20 MG in SYRINGE 3 ML IV SCH (09:17)
--- NOTE | 2020-10-13 10:08 | XRay Report ---
KUB HISTORY: small bowel obstruction COMPARISON: KUB 10/11/2020. FINDINGS: The tip of the nasogastric tube now resides at the gastroesophageal junction. This should b e advanced by approximately 5 to 10 cm. Mildly dilated gas-filled loops of small bowel in the upper a bdomen are again noted and are consistent with the patient's small bowel obstruction. These measure u p to 4 cm in diameter. Prior cholecystectomy. No renal calculi. No ureteral calculi. No pneumoperito neum or pneumatosis. IMPRESSION: 1.The tip of the nasogastric tube now resides at the gastroesophageal junction. This should be advanc ed by approximately 5 to 10 cm. 2. Mildly dilated gas-filled loops of small bowel in the upper abdomen are again noted and are consis tent with the patient's small bowel obstruction. ACT 112: Negative or not required by law. Electronically signed by: Jesus Parr M.D. 10/13/2020 10:06 AM
[2020-10-13] MEDS: NICOTINE 7 MG/24 HR TDSY TD PRN (10:11)
--- NOTE | 2020-10-13 13:34 | Hospitalist Progress Note ---
Date of Service October 13, 2020 Assessment & Plan Admission and Anticipated Discharge Date Admission Date: Date of Service October 12, 2020 Assessment & Plan (1) Medication withdrawal: due to lack of gabapentin for 3-4 days on admission while n.p.o. All symptoms (restlessness, sweats, etc) resolved with resumption of gabapentin. Give gabapentin liquid 900mg TID via NG tube; clamp NG for 30min after administration to allow absorption. (2) Small bowel obstruction: Ongoing clinically & radiographically. Surgery management. NG tube in place. Serial KUB films. Cont NPO, IVF, NG. Gen surg managing. SBO is in setting of lap segundo w/ lysis of adhesions on 10/07/20. (3) S/P cholecystectomy: POD #6, with LOS and repair of enterostomy. Stable from lap segundo standpoint. LFTs wnl. (4) Chronic diastolic CHF (congestive heart failure): Continue metoprolol 2.5mg IV q6h due to NPO status/NG tube. Holding lisinopril. Usually uses lasix 20mg 2x/week at home. As needed parenteral Lasix as needed Remains compensated on exam. (5) Hypercholesterolemia: Holding statin therapy for now with NPO status (6) Cardiomyopathy: h/o early 2009's but now resolved with normal EF. (7) Hypertension: IV metoprolol (8) COPD (chronic obstructive pulmonary disease): Cont Symbicort, Spiriva, and as needed Ventolin. NO exacerbation at this time. Stable O2 sats in room air. Subjective Alert and oriented. KUB today is unchanged. NG tube remains in place. Surgery entry noted. Postoperative day #6. Review of Systems Review of Systems: Constitutional-no fever or chills ENT-no blurred vision, no double vision, no epistaxis, no sore throat. NG tube in place Respiratory-no cough, no wheezing, no shortness of breath Cardiac-no palpitations, no chest pain, no syncope GI-no nausea, vomiting, diarrhea, melena, hematochezia -no urinary retention, no urinary incontinence, no dysuria, no hematuria Musculoskeletal-no joint pain, no muscle tenderness Skin-no bruising, no rashes, no pruritus Neuro-no isolated weakness, no paresthesia, no weakness Psych-no depression, no anxiety Physical Exam Physical Exam: General-alert and oriented x3, no fevers, no chills HEENT-head atraumatic and normocephalic, TMs intact bilaterally, pupils equal and reactive to light, extraocular muscles intact Neck-no lymphadenopathy or thyromegaly, trachea midline Chest-clear to auscultation percussion. No rales wheezing or rhonchi Cardiac-regular rate and rhythm, normal S1 and S2, no murmurs Abdomen-nontender, no hepatosplenomegaly. NG tube in place Extremities-no cyanosis, clubbing, or edema Neuro-cranial nerves II through XII intact, motor and sensory function within normal limits, strength symmetrical 5/5, no focal deficits Psych-normal affect, normal mood Results & Data Results & Data ([facility]) Vital Signs (Past 12 Hours) Vital Signs Temp Pulse Pulse Resp BP BP BP 10/13/20 07:57 70 10/13/20 07:30 36.6 C 75 20 164/83 H 10/13/20 06:37 82 166/97 H 10/13/20 04:00 36.8 C 72 18 146/82 H Pulse Ox 10/13/20 07:57 10/13/20 07:30 95 10/13/20 06:37 10/13/20 04:00 95 Laboratory Results 10/13/20 05:34 10/13/20 05:34 PG Care Time/CCT Total # of Minutes Spent Total Time Spent with Patient: Total time spent is greater than 50% in coordination of care (as documented) at patient's floor/unit and/or counseling patient: Coding Level of Care Code 61847 Subseq Hosp Care Lvl 3
[2020-10-13] MEDS: ACETAMINOPHEN 1,000 MG/100 ML VIAL IV PRN (14:20)
[2020-10-14] MEDS: METOPROLOL TARTRATE 1 MG/ML VIAL IV SCH ×4 (05:57→23:27)
[2020-10-14 07:58] LABS: BUN Creatinine Ratio 11.1 (10-20); Calcium 9.2 mg/dl (8.5-10.1); Creatinine Clr Calc Pharmacy 97.6 ml/min; Est GFR (African American) 96.6; Est GFR (Non-African American) 83.3; Potassium 3.8 mmol/L (3.5-5.1)
--- NOTE | 2020-10-14 09:01 | XRay Report ---
KUB CLINICAL HISTORY: Small bowel obstruction. FINDINGS: 3 AP supine abdominal radiographs are compared to study dated 10/13/2020 and correlated with abdominal CT dated 10/10/2020. Cholecystectomy clips are seen in the right upper quadrant. Additional surgical clips are seen in the lower abdomen. An enteric tube projects over the stomach. There is per sistent gaseous distention of the proximal small bowel loops which measure up to 5 cm. This indicates persistent obstruction. A calcified granuloma is again seen in the liver. The skeletal structures ar e osteopenic and appear intact. There are large gluteal calcifications. IMPRESSION: 1. An enteric tube projects over the stomach. 2. There is evidence of persistent small bowel obstruction. Electronically signed by: William Silva M.D. 10/14/2020 9:00 AM
[2020-10-14] MEDS: ENOXAPARIN INJ 40 MG/0.4 ML SYR SQ SCH (09:14)
[2020-10-14] MEDS: NSS + 20MEQ KCL 20 MEQ/1,000 ML BAG IV SCH ×2 (09:14→18:06)
[2020-10-14] MEDS: FLUTICASONE/VILANTEROL 100/25MCG 14 PUFFS/INHALER INH SCH (09:14)
[2020-10-14] MEDS: UMECLIDINIUM BROMIDE 62.5MCG/BLISTER 7 PUFFS/INHALER INH SCH (09:14)
[2020-10-14] MEDS: GABAPENTIN 250 MG/5 ML 470 ML BTL NG SCH ×3 (09:24→20:36)
[2020-10-14] MEDS: ENALAPRILAT 1.25 MG in DEXTROSE 5% 25 ML IV SCH ×3 (09:24→20:36)
[2020-10-14] MEDS: FAMOTIDINE 20 MG in SYRINGE 3 ML IV SCH (09:24)
--- NOTE | 2020-10-14 11:57 | Surgery Progress Note ---
Date of Service October 14, 2020 Assessment & Plan (1) SBO (small bowel obstruction): clinically doing ok keep ngt will order sbft for tomorrow. continue conservative management. may have ice chips Admission and Anticipated Discharge Date Admission Date: October 10, 2020 Subjective pt seen. feeling well. +flatus. no pain or nausea. no bm yet Physical Exam Physical Exam: alert. nad abd: soft. mild distension. obese. nt. +bs's Results & Data ([facility]) Vital Signs (Past 12 Hours) Vital Signs Temp Pulse Pulse Resp BP BP BP 10/14/20 11:38 36.9 C 80 18 122/64 10/14/20 08:06 36.7 C 82 21 175/82 H 162/88 H 10/14/20 07:42 63 10/14/20 05:57 77 162/84 H 10/14/20 04:00 36.6 C 73 18 163/91 H 10/14/20 00:00 79 Pulse Ox 10/14/20 11:38 94 10/14/20 08:06 95 10/14/20 07:42 10/14/20 05:57 10/14/20 04:00 94 10/14/20 00:00
--- NOTE | 2020-10-14 12:15 | Hospitalist Progress Note ---
Date of Service October 14, 2020 Assessment & Plan (1) Medication withdrawal: due to lack of gabapentin for 3-4 days. All symptoms (restlessness, sweats, etc) resolved with resumption of gabapentin. Giving gabapentin liquid 900mg TID via NG tube; clamp NG for 30min after administration to allow absorption. (2) Small bowel obstruction: Cont NPO, IVF, NG. Gen surg managing. SBO is in setting of lap segundo w/ lysis of adhesions on 10/07/20. (3) S/P cholecystectomy: POD #7, LOS and laparoscopic cholecystectomy . Stable from lap segundo standpoint. LFTs wnl. (4) Chronic diastolic CHF (congestive heart failure): Continue metoprolol 2.5mg IV q6h due to NPO status/NG tube. Holding po lisinopril. IV enalapril started today, October 14 Usually uses lasix 20mg 2x/week at home. No apparent decompensation (5) Hypercholesterolemia: Holding statin therapy for now with NPO status (6) Cardiomyopathy: h/o early 2009' but now resolved with normal EF. (7) Hypertension: IV metoprolol , IV enalapril (8) COPD (chronic obstructive pulmonary disease): Cont Symbicort, Spiriva, and as needed Ventolin. NO exacerbation at this time. Stable O2 sats on room air. (9) Obstructive sleep apnea of adult: -Does not use CPAP by report (10) Acid reflux disease with ulcer: Continue Famotidine 20 mg IV daily (11) Peripheral neuropathy: along with chronic lumbar back pain and chronic restless legls Continue gabapentin 900mg TID (12) Vitamin D deficiency: hold supplementation while n.p.o. (13) Hyponatremia: resolved w/ isotonic fluids. cont IVF with NPO status and NG tube decompression. (14) Morbid obesity with BMI of 45.0-49.9, adult: BMI 45.4 (15) Tobacco dependence: cont nicoderm patch daily counselled to quit (16) DVT prophylaxis: lovenox 40mg daily Admission and Anticipated Discharge Date Admission Date: October 10, 2020 Subjective Alert and oriented. Parenteral SEBASTIAN inhibitor started for improved blood pre ssure control. Postoperative day #7. NG tube remains in place. She remains n.p.o. on IV fluids. Review of Systems Review of Systems: Constitutional-no fever or chills ENT-no blurred vision, no double vision, no epistaxis, no sore throat Respiratory-no cough, no wheezing, no shortness of breath Cardiac-no palpitations, no chest pain, no syncope GI-no nausea, vomiting, diarrhea, melena, hematochezia -no urinary retention, no urinary incontinence, no dysuria, no hematuria Musculoskeletal-no joint pain, no muscle tenderness Skin-no bruising, no rashes, no pruritus Neuro-no isolated weakness, no paresthesia, no weakness Psych-no depression, no anxiety Physical Exam Physical Exam: General-alert and oriented x3, no fevers, no chills HEENT-head atraumatic and normocephalic, TMs intact bilaterally, pupils equal and reactive to light, extraocular muscles intact. NG tube in place Neck-no lymphadenopathy or thyromegaly, trachea midline Chest-clear to auscultation percussion. No rales wheezing or rhonchi Cardiac-regular rate and rhythm, normal S1 and S2, no murmurs Abdomen-somewhat distended. Active bowel sounds Extremities-no cyanosis, clubbing, or edema Neuro-cranial nerves II through XII intact, motor and sensory function within normal limits, strength symmetrical 5/5, no focal deficits Psych-normal affect, normal mood Results & Data Results & Data ([facility]) Vital Signs (Past 12 Hours) Vital Signs Temp Pulse Pulse Resp BP BP BP 10/14/20 11:38 36.9 C 80 18 122/64 10/14/20 08:06 36.7 C 82 21 175/82 H 162/88 H 10/14/20 07:42 63 10/14/20 05:57 77 162/84 H 10/14/20 04:00 36.6 C 73 18 163/91 H Pulse Ox 10/14/20 11:38 94 10/14/20 08:06 95 10/14/20 07:42 10/14/20 05:57 10/14/20 04:00 94 Laboratory Results 10/13/20 05:34 10/14/20 07:11 PG Care Time/CCT Total # of Minutes Spent Total Time Spent with Patient: Total time spent is greater than 50% in coordination of care (as documented) at patient's floor/unit and/or counseling patient: Coding Level of Care Code 37833 Subseq Hosp Care Lvl 3 Diagnoses Medication withdrawal F19.239 Small bowel obstruction K56.609 S/P cholecystectomy Z90.49 Chronic diastolic CHF (congestive heart failure) I50.32 Hypercholesterolemia E78.00 Cardiomyopathy I42.9 Hypertension I10 COPD (chronic obstructive pulmonary disease) J44.9 Obstructive sleep apnea of adult G47.33 Acid reflux disease with ulcer K21.9 Peripheral neuropathy G62.9 Vitamin D deficiency E55.9 Hyponatremia E87.1 Morbid obesity with BMI of 45.0-49.9, adult E66.01; Z68.42 Tobacco dependence F17.200 DVT prophylaxis Z29.9
[2020-10-14] MEDS ORDERED: Nursing to Pharmacy Communication SCH (18:30)
[2020-10-15] MEDS: NSS + 20MEQ KCL 20 MEQ/1,000 ML BAG IV SCH (02:56)
[2020-10-15] MEDS: ENALAPRILAT 1.25 MG in DEXTROSE 5% 25 ML IV SCH ×3 (02:56→15:22)
[2020-10-15] MEDS: METOPROLOL TARTRATE 1 MG/ML VIAL IV SCH ×2 (05:20→12:31)
[2020-10-15 06:51] LABS: BUN Creatinine Ratio 12.7 (10-20); Calcium 8.4 mg/dl (8.5-10.1); Creatinine Clr Calc Pharmacy 97.5 ml/min; Est GFR (African American) 96.6; Est GFR (Non-African American) 83.3; Potassium 4.1 mmol/L (3.5-5.1)
--- NOTE | 2020-10-15 08:55 | Fluoroscopy Report ---
[place] small bowel follow through CLINICAL HISTORY: Small bowel obstruction. Follow-up. COMPARISON STUDY: Abdomen and pelvis CT 10/10/2020. FLUOROSCOPY TIME: None.. FINDINGS: 4 overhead images of the abdomen and pelvis were submitted. A total of 300 cc of water-solu ble contrast was injected through the indwelling nasogastric tube. Evidence for prior cholecystectomy . There are surgical clips within the left lower quadrant. There are few borderline dilated contrast filled loops of small bowel within the mid abdomen. However, contrast easily reached the cecum x 30 m . Therefore, no additional imaging was obtained. IMPRESSION: A few borderline dilated contrast filled loops of small bowel within the mid abdomen. How ever, no evidence for bowel obstruction at this time. ACT 112: Negative or not required by law. Electronically signed by: Jesus Parr M.D. 10/15/2020 8:54 AM
--- NOTE | 2020-10-15 09:14 | Surgery Progress Note ---
Date of Service October 15, 2020 Assessment & Plan (1) SBO (small bowel obstruction): Contrast easily passed to the cecum today within 30 minutes. No evidence of small bowel obstruction at this time. We will proceed with a clamping trial. If she passes this we will try removing the NG tube and starting clear liquids. [facility] surgeons are chief information officer for the weekend. Admission and Anticipated Discharge Date Admission Date: October 10, 2020 Subjective Patient seen. She is feeling fine. She does have sensation of her bowels beginning to work. She is passing a fair amount of gas. Physical Exam Physical Exam: Alert. No acute distress Abdomen is soft nontender. Incisions are healing nicely. Results & Data ([facility]) Vital Signs (Past 12 Hours) Vital Signs Temp Pulse Pulse Resp BP BP BP 10/15/20 08:15 36.5 C 65 16 149/84 H 10/15/20 05:20 80 157/84 H 10/15/20 04:00 36.5 C 75 18 157/84 H 10/15/20 00:40 82 10/14/20 23:27 76 10/14/20 23:00 36.5 C 77 18 165/91 H Pulse Ox 10/15/20 08:15 95 10/15/20 05:20 10/15/20 04:00 97 10/15/20 00:40 10/14/20 23:27 10/14/20 23:00 96
[2020-10-15] MEDS ORDERED: SODIUM CHLOR 0.45% + 20MEQ KCL 20 MEQ/1,000 ML BAG IV SCH (09:15)
[2020-10-15] MEDS: FAMOTIDINE 20 MG in SYRINGE 3 ML IV SCH (09:27)
[2020-10-15] MEDS: UMECLIDINIUM BROMIDE 62.5MCG/BLISTER 7 PUFFS/INHALER INH SCH (09:30)
[2020-10-15] MEDS: ENOXAPARIN INJ 40 MG/0.4 ML SYR SQ SCH (09:30)
[2020-10-15] MEDS: FLUTICASONE/VILANTEROL 100/25MCG 14 PUFFS/INHALER INH SCH (09:30)
[2020-10-15] MEDS: GABAPENTIN 250 MG/5 ML 470 ML BTL NG SCH ×2 (10:10→15:18)
[2020-10-15] MEDS: NICOTINE 7 MG/24 HR TDSY TD PRN (12:57)
--- NOTE | 2020-10-15 13:18 | Hospitalist Progress Note ---
Date of Service October 15, 2020 Assessment & Plan (1) Medication withdrawal: due to lack of gabapentin for 3-4 days. All symptoms (restlessness, sweats, etc) resolved with resumption of gabapentin. Giving gabapentin liquid 900mg TID via NG tube; clamp NG for 30min after administration to allow absorption. (2) Small bowel obstruction: Small bowel follow-through today was unremarkable. NG tube will be clamped by surgery and hopefully remove later today and diet will be started. Continue IV fluids for now. Gen surg managing. SBO is in setting of lap segundo w/ lysis of adhesions on 10/07/20. (3) S/P cholecystectomy: POD #8, LOS and laparoscopic cholecystectomy . Stable from lap segundo standpoint. LFTs wnl. (4) Chronic diastolic CHF (congestive heart failure): Continue metoprolol 2.5mg IV q6h due to NPO status/NG tube. Holding po lisinopril. IV enalapril started October 14 Usually uses lasix 20mg 2x/week at home. No apparent decompensation (5) Hypercholesterolemia: Holding statin therapy for now with NPO status (6) Cardiomyopathy: h/o early but now resolved with normal EF. (7) Hypertension: IV metoprolol , IV enalapril. Switch back to p.o. metoprolol and lisinopril when able (8) COPD (chronic obstructive pulmonary disease): Cont Symbicort, Spiriva, and as needed Ventolin. NO exacerbation at this time. Stable O2 sats on room air. (9) Obstructive sleep apnea of adult: -Does not use CPAP by report (10) Acid reflux disease with ulcer: Continue Famotidine 20 mg IV daily (11) Peripheral neuropathy: along with chronic lumbar back pain and chronic restless legls Continue gabapentin 900mg TID (12) Vitamin D deficiency: hold supplementation while n.p.o. (13) Hyponatremia: resolved w/ isotonic fluids. cont IVF with NPO status and NG tube decompression. (14) Morbid obesity with BMI of 45.0-49.9, adult: BMI 45.4 (15) Tobacco dependence: cont nicoderm patch daily counselled to quit (16) DVT prophylaxis: lovenox 40mg daily (17) Hypernatremia: Mild hypernatremia and hyperchloremia due to 0.9 normal saline IV fluids. This has been switched to 0.45 normal saline. Continue basic metabolic profile daily. Present on Admission?: No Admission and Anticipated Discharge Date Admission Date: October 10, 2020 Subjective Alert and oriented. No complaints. Blood pressure acceptable with parenteral metoprolol and enalapril. Small bowel follow-through was negative for bowel obstruction today. Apparently the NG tube will be clamped then hopefully remove later today and diet can be started and subsequently advanced. We will switch to p.o. metoprolol and lisinopril when able. Review of Systems Review of Systems: Constitutional-no fever or chills ENT-no blurred vision, no double vision, no epistaxis, no sore throat. NG tube in place Respiratory-no cough, no wheezing, no shortness of breath Cardiac-no palpitations, no chest pain, no syncope GI-no nausea, vomiting, diarrhea, melena, hematochezia -no urinary retention, no urinary incontinence, no dysuria, no hematuria Musculoskeletal-no joint pain, no muscle tenderness Skin-no bruising, no rashes, no pruritus Neuro-no isolated weakness, no paresthesia, no weakness Psych-no depression, no anxiety Physical Exam Physical Exam: General-alert and oriented x3, no fevers, no chills HEENT-head atraumatic and normocephalic, TMs intact bilaterally, pupils equal and reactive to light, extraocular muscles intact. NG tube in place Neck-no lymphadenopathy or thyromegaly, trachea midline Chest-clear to auscultation percussion. No rales wheezing or rhonchi Cardiac-regular rate and rhythm, normal S1 and S2, no murmurs Abdomen-normal bowel sounds, nontender, no hepatosplenomegaly Extremities-no cyanosis, clubbing, or edema Neuro-cranial nerves II through XII intact, motor and sensory function within normal limits, strength symmetrical 5/5, no focal deficits Psych-normal affect, normal mood Results & Data Results & Data ([facility]) Vital Signs (Past 12 Hours) Vital Signs Temp Pulse Pulse Resp BP BP BP 10/15/20 12:31 86 159/88 H 10/15/20 12:27 86 159/88 H 10/15/20 10:07 68 10/15/20 09:25 98 H 130/83 10/15/20 08:15 36.5 C 65 16 149/84 H 10/15/20 05:20 80 157/84 H 10/15/20 04:00 36.5 C 75 18 157/84 H Pulse Ox 10/15/20 12:31 10/15/20 12:27 10/15/20 10:07 10/15/20 09:25 10/15/20 08:15 95 10/15/20 05:20 10/15/20 04:00 97 Laboratory Results 10/13/20 05:34 10/15/20 06:06 PG Care Time/CCT Total # of Minutes Spent Total Time Spent with Patient: Total time spent is greater than 50% in coordination of care (as documented) at patient's floor/unit and/or counseling patient: Coding Level of Care Code 15521 Subseq Hosp Care Lvl 3 Diagnoses Medication withdrawal F19.239 Small bowel obstruction K56.609 S/P cholecystectomy Z90.49 Chronic diastolic CHF (congestive heart failure) I50.32 Hypercholesterolemia E78.00 Cardiomyopathy I42.9 Hypertension I10 COPD (chronic obstructive pulmonary disease) J44.9 Obstructive sleep apnea of adult G47.33 Acid reflux disease with ulcer K21.9 Peripheral neuropathy G62.9 Vitamin D deficiency E55.9 Hyponatremia E87.1 Morbid obesity with BMI of 45.0-49.9, adult E66.01; Z68.42 Tobacco dependence F17.200 DVT prophylaxis Z29.9 Hypernatremia E87.0
[2020-10-15] MEDS ORDERED: DOCUSATE SODIUM 100 MG CAP PO PRN (15:57)
[2020-10-15] MEDS: GABAPENTIN 600 MG TAB PO SCH (20:24)
[2020-10-15] MEDS: METOPROLOL TARTRATE 25 MG TAB PO SCH (20:24)
[2020-10-15] MEDS: GABAPENTIN 300 MG CAP PO SCH (20:24)
[2020-10-15] MEDS ORDERED: ATORVASTATIN 20 MG TAB PO SCH (21:00)
[2020-10-15] MEDS ORDERED: MONTELUKAST SODIUM 10 MG TABLET PO SCH (21:00)
[2020-10-16 06:50] LABS: BUN Creatinine Ratio 10.5 (10-20); Calcium 8.7 mg/dl (8.5-10.1); Creatinine Clr Calc Pharmacy 91.5 ml/min; Est GFR (African American) 89.5; Est GFR (Non-African American) 77.2; Potassium 3.5 mmol/L (3.5-5.1)
[2020-10-16] MEDS: METOPROLOL TARTRATE 25 MG TAB PO SCH (08:36)
[2020-10-16] MEDS: GABAPENTIN 600 MG TAB PO SCH (08:36)
[2020-10-16] MEDS: GABAPENTIN 300 MG CAP PO SCH (08:36)
[2020-10-16] MEDS: FLUTICASONE/VILANTEROL 100/25MCG 14 PUFFS/INHALER INH SCH (08:38)
[2020-10-16] MEDS: UMECLIDINIUM BROMIDE 62.5MCG/BLISTER 7 PUFFS/INHALER INH SCH (08:39)
[2020-10-16] MEDS: ENOXAPARIN INJ 40 MG/0.4 ML SYR SQ SCH (08:39)
[2020-10-16] MEDS ORDERED: lisinopril 10 MG TAB PO SCH (09:00)
[2020-10-16] MEDS ORDERED: PANTOprazole 40 MG TAB PO SCH (09:00)
[2020-10-16] MEDS: NICOTINE 7 MG/24 HR TDSY TD PRN (09:24)
--- NOTE | 2020-10-16 11:17 | Surgery Progress Note ---
Date of Service F/U SBO, pt is doing fine, no abdominal pain, tolerated diet, passed BM x4 October 16, 2020 Assessment & Plan (1) SBO (small bowel obstruction): F/U SBO, pt is doing fine, no abdominal pain, passed BM x4 tolerated diet, pt wants to go home today, pt can be discharged today, full liquid diet for 1-2 days, if tolerated it then regular diet. the care instruction was given, F/U DR. Rebolledo 1-2 weeks Present on Admission?: Yes Admission and Anticipated Discharge Date Admission Date: October 10, 2020 Supervising Physician Co-Signing Physician Notes Attending Attestation / Consult Note: Pt seen/examined, chart reviewed, care plan d/w ANNY Valles. I agree w/ the johnson components of her documentation. 59yo female with COPD, tobacco use, morbid obesity (BMI 45), HTN - POD #3 from lap segundo and lysis of adhesions. Tolerated surgery well and was d/c home. Unfortunately returns with SBO. NG tube placed in ER. During my assessment patient's NG tube was draining copious yellow fluid. She has not passed flatus since admission. She does feel that her abdomen is less distended than earlier today. PMH, PSH, allergies, meds, sochx, famhx - reviewed VSS, afebrile gen - NAD, morbidly obese nose - NG tube in place mouth - MM dry heart - RRR, s1 s2 lungs - CTA b/l abd - distended, BS+ but decreased, tender over incisions, no HSM, incisions clean skin - mild pink erythema inferior to umbilicus ext - pulses 2+ b/l labs reviewed Na 133 Cr 1.2 Hb 14.8 A/P: 1. SBO - defer management to gen surg. NG tube, IV fluids, NPO, pain meds, etc. 2. morbid obesity - BMI 45. 3. HTN - metoprolol 2.5mg IV q6h. 4. COPD - w/o exacerbation. 5. hyponatremia - should correct with isotonic fluids; bmp am. 6. DVT proph - lovenox 40mg daily. Sage Whitaker MD Subjective Alert and oriented. No complaints. Blood pressure acceptable with parenteral metoprolol and enalapril. Small bowel follow-through was negative for bowel obstruction today. Apparently the NG tube will be clamped then hopefully remove later today and diet can be started and subsequently advanced. We will switch to p.o. metoprolol and lisinopril when able. Physical Exam Constitutional: WD/WN, vitals as above well developed and well nourished Eyes: PERRL, conjunctivae normal, anicteric sclerae ENMT: external ear and nose normal, oropharynx normal Neck: trachea midline, no thyromegaly Respiratory: normal respiratory effort, lungs clear to auscultation normal respiratory effort Cardiovascular: RRR, no murmur, no edema Rate/Rhythm: regular rate and regular rhythm Gastrointestinal (Abdomen): normal bowel sounds, soft, nontender, no hepatosplenomegaly all incisions heal well, no redness, Musculoskeletal: no cyanosis or clubbing, extremities motor strength 5/5 Skin: no rashes, warm and dry Neurologic: awake Psychiatric: Orientation: alert and oriented x 3 Results & Data ([facility]) Vital Signs (Past 12 Hours) Vital Signs Temp Pulse Pulse Resp BP Pulse Ox 10/16/20 06:39 36.7 C 71 18 134/77 94 10/16/20 03:03 36.6 C 69 16 131/72 95 10/16/20 00:37 69 Laboratory Results Abnormal lab results 10/16/20 Range/Units 05:48 Chloride 111 H (98-107) mmol/L
--- NOTE | 2020-10-16 12:17 | Discharge Summary ---
Date of Service October 16, 2020 Admission HPI Per Admitting Provider 59-year-old female presenting to the ER with 1 to 2 days of abdominal distention nausea and vomiting mostly this morning and yesterday On 10/07/2020 she underwent laparoscopic cholecystectomy with enterolysis and repair of enterotomy by Dr. Rebolledo Her CT scan does show dilated small bowel with apparent transition point near the mid abdomen Patient currently is in her ER bed no distress normal affect and minimal pain Principal Diagnosis Pt is doing well. She has been tolerating full liquids today without issue. No further pain. Denies n/v. Pt denies fever, SOB, chest pain, c/d, LE pain or swelling. She is requesting d/c to home. Discharge Exam Constitutional WD/WN, vitals as above Eyes normal visual oliva by confrontation and + anicteric sclerae Neck normal visual inspection and trachea midline Respiratory normal respiratory effort, lungs clear to auscultation Cardiovascular Rate/Rhythm: regular rate and regular rhythm Gastrointestinal (Abdomen) Inspection/Auscultation: abdomen not distended Percussion/Palpation: abdomen soft; abdomen nontender Musculoskeletal Head/Neck/Chest: normocephalic and head atraumatic Skin no rashes, warm and dry Neurologic awake; not confused Speech / Cognition: normal speech Psychiatric A+Ox3, euthymic affect Discharge Data Allergies Allergy/AdvReac Type Severity Reaction Status Date / Time amoxicillin [From Augmentin] Allergy Intermediate Hives Verified 10/10/20 15:36 clavulanic acid Allergy Intermediate Hives Verified 10/10/20 15:36 [From Augmentin] codeine AdvReac Intermediate Dizziness, Verified 10/10/20 15:36 vomiting morphine AdvReac Intermediate Vomiting Verified 10/10/20 15:36 prednisone AdvReac Intermediate Dizziness Verified 10/10/20 15:36 Consultations 10/10/20 16:05 ED Decision to Admit Stat 10/10/20 18:49 Consult Hospitalist Stat Ordered Studies 10/10/20 14:30 CT abd pelvis IV con only Stat 10/15/20 07:00 [place] small bowel follow through Routine Hospital Course (1) Medication withdrawal: due to lack of gabapentin for 3-4 days. All symptoms (restlessness, sweats, etc) resolved with resumption of gabapentin. Giving gabapentin liquid 900mg TID via NG tube; clamp NG for 30min after administration to allow absorption. (2) Small bowel obstruction: Small bowel follow-through 10/15 was unremarkable. NG tube clamped overnight and no issues with diet started. Gen surg recs for home with full liquid diet x1-2 days SBO is in setting of lap segundo w/ lysis of adhesions on 10/07/20. (3) S/P cholecystectomy: POD #9, LOS and laparoscopic cholecystectomy . Stable from lap segundo standpoint. LFTs wnl. (4) Chronic diastolic CHF (congestive heart failure): Continue metoprolol 2.5mg IV q6h due to NPO status/NG tube. Holding po lisinopril. IV enalapril started October 14 Usually uses lasix 20mg 2x/week at home. No apparent decompensation (5) Hypercholesterolemia: Holding statin therapy for now with NPO status (6) Cardiomyopathy: h/o early but now resolved with normal EF. (7) Hypertension: IV metoprolol , IV enalapril. Switch back to p.o. metoprolol and lisinopril when able (8) COPD (chronic obstructive pulmonary disease): Cont Symbicort, Spiriva, and as needed Ventolin. NO exacerbation at this time. Stable O2 sats on room air. (9) Obstructive sleep apnea of adult: -Does not use CPAP by report (10) Acid reflux disease with ulcer: Continue Famotidine 20 mg IV daily (11) Peripheral neuropathy: along with chronic lumbar back pain and chronic restless legls Continue gabapentin 900mg TID (12) Vitamin D deficiency: hold supplementation while n.p.o. (13) Hyponatremia: resolved w/ isotonic fluids. cont IVF with NPO status and NG tube decompression. (14) Morbid obesity with BMI of 45.0-49.9, adult: BMI 45.4 (15) Tobacco dependence: cont nicoderm patch daily counselled to quit (16) DVT prophylaxis: lovenox 40mg daily during admission (17) Hypernatremia: Mild hypernatremia and hyperchloremia due to 0.9 normal saline IV fluids Improved Total Time Total Time Spent Total Time Spent (In Minutes): >30 Total Time Includes: Examination of the Patient, Discharge Planning, Medication Reconciliation, Communication With Other Providers and Other Discharge Plan Discharge Items Patient Disposition: Home - Self-Care Reason For Visit: SBO Discharge Diagnosis: small bowel obstruction Condition on Discharge: Fair Activity: Per Instructions section Lifting Comment: no more than 20 pounds Bathing Comment: may shower; no soaking in tubs/pools Exercise/Sports: Wait until after follow-up appointment Driving/Machine Use: do not resume driving while taking narcotics for pain Non-emergency contact: Primary Care Provider and Surgeon Call non-emergency contact if: you have any medication questions, your symptoms worsen, your pain is not controlled, your pain is worsening, your pain is unusual for you, you have a fever, your temperature is above 101.5, your wound has increased redness, your wound has increased drainage and your wound pain has increased Follow-up/Referrals: Christina Tineo CRNP [Primary Care Provider] - Randall Rebolledo DO [Surgeon] - (please call to schedule follow up in clinic within 2 weeks) Diet: Regular Diet Comment: Full liquid diet x2 days, then advance as tolerated Addtl Attending Provider Instructions: Pending Studies at Discharge: No Stand-Alone Forms: My [facility] PaySimple, Smoking Cessation Medications and DC Order Prescriptions: Continued sennosides 8.6 mg tablet 8.6 mg PO BID PRN (Reason: constipation) Qty: 180 RF: 1 Symbicort 160-4.5 mcg/actuation HFA aerosol inhaler 2 puff INHALATION BID Qty: 30.6 RF: 3 ibuprofen 800 mg tablet 800 mg PO DAILY PRN (Reason: Pain) Qty: 90 RF: 5 albuterol sulfate 2.5 mg /3 mL (0.083 %) solution for nebulization 2.5 mg inhalation Q6H PRN (Reason: shortness of breath or wheezing) Qty: 1 RF: 0 albuterol sulfate [Ventolin HFA] 90 mcg/actuation HFA aerosol inhaler 2 puff INHALATION Q6H PRN (Reason: Shortness Of Breath Or Wheezing) Qty: 18 RF: 5 docusate sodium [Colace] 100 mg capsule 100 mg PO BID PRN (Reason: Constipation) RF: 0 potassium chloride 20 mEq tablet extended release 20 meq PO 2XWK RF: 0 tramadol 50 mg Tablet 50 mg PO BID PRN (Reason: Pain) RF: 0 Spiriva with HandiHaler 18 mcg Capsule, W/Inhalation Device 1 cap INHALATION QAM RF: 0 gabapentin 600 mg tablet 600 mg PO TID RF: 0 atorvastatin 20 mg tablet 20 mg PO QPM RF: 0 pantoprazole 40 mg tablet,delayed release (DR/EC) 40 mg PO QAM RF: 0 lisinopril 10 mg tablet 10 mg PO QAM RF: 0 gabapentin 300 mg capsule 300 mg PO TID RF: 0 montelukast 10 mg tablet 10 mg PO QPM RF: 0 furosemide 20 mg tablet 20 mg PO 2XWK RF: 0 metoprolol tartrate 25 mg tablet 25 mg PO BID RF: 0 Discharge Orders: Discharge Order (Routine); Ordered 10/16/20 Ordered By: Luann Doe Admission Data Admit Date/Time: 10/10/20 18:41 Attending Provider: Luann Doe Admit Provider: Michael Thompson Primary Care Provider: Christina Tineo Other Providers: Michael Thompson ; Sage Whitaker Other Interventions: Discharge Summary Assessment (RN) Last Done: 10/16/20 12:21 Coding Level of Care Code D/C Day Management >30 mins Diagnoses Medication withdrawal F19.239 Small bowel obstruction K56.609 S/P cholecystectomy Z90.49 Chronic diastolic CHF (congestive heart failure) I50.32 Hypercholesterolemia E78.00 Cardiomyopathy I42.9 Hypertension I10 COPD (chronic obstructive pulmonary disease) J44.9 Obstructive sleep apnea of adult G47.33 Acid reflux disease with ulcer K21.9 Peripheral neuropathy G62.9 Vitamin D deficiency E55.9 Hyponatremia E87.1 Morbid obesity with BMI of 45.0-49.9, adult E66.01; Z68.42 Tobacco dependence F17.200 DVT prophylaxis Z29.9 Hypernatremia E87.0
[2020-10-18] MEDS ORDERED: FUROSEMIDE 20 MG TAB PO SCH (09:00)
--- NOTE | 2020-11-03 06:43 | Coding Query ---
CODING QUERY To promote full compliance with coding requirements relating to patient care, provider participation is requested in all cases of data coder operator uncertainty. Please assist us with the question(s) below: Coding Question(s):Please clarify if the SBO was: Complication of Care ( x ) SBO not a complication ( ) Other Explanation ( ) Undetermined ( ) Physician's Response(s): Thank you Allegra Rodas Principal Diagnosis: "that condition established after study, to be chiefly responsible for occasioning the admission of the patient to the hospital for care." Co-Existing Principal Diagnosis: "when two or more diagnoses equally meet the criteria for principal diagnosis as determined by the circumstances of admission, diagnostic work up, and/or therapy provided, and the Alphabetic Index, Tabular List, or another coding guideline does not provide sequencing direction, any one of the diagnoses may be sequenced first." "When the physician has documented what appears to be a current diagnosis in the body of the record, but has not included the diagnosis in the final diagnostic statement, the physician should be asked whether the diagnosis should be added." ([facility] 2 QTR90. p3-4) KESHIA
== END 2020-10-16 14:06 | disposition home or self-care (01) | DRG 357 ==
LOC: ED 14:06 → 2W 18:18 → SUATTDRO 18:41

== ENCOUNTER 2021-01-04 11:29 | Inpatient (IN) ==
[2021-01-04 12:12] LABS: Basophils # (auto) 0.02 K/uL (0-0.2); Basophils % (auto) 0.1 %; Eosinophils # (auto) 0.23 K/uL (0-0.5); Eosinophils % (auto) 1.7 %; Hematocrit (blood only) 41.1 % (37-47); Hemoglobin 13.9 g/dL (12.0-16.0); Immature Granulocytes # (auto) 0.04 K/uL (0.00-0.02); Immature Granulocytes % (auto) 0.3 %; Lymphocytes # (auto) 2.07 K/uL (1.2-3.4); Lymphocytes % (auto) 15.1 %; Mean Corpuscular Hemoglobin 29.4 pg (25-34); Mean Corpuscular Hgb Conc 33.8 g/dL (32-36); Mean Corpuscular Volume 86.9 fL (80-100); Mean Platelet Volume 10.2 fL (7.4-10.4); Monocytes % (auto) 5.8 %; Neutrophils # (auto) 10.55 K/uL (1.4-6.5); Platelet Count 344 K/uL (130-400); RDW Coefficient of Variation 14.7 % (11.5-14.5); Red Blood Count 4.73 M/uL (4.2-5.4); White Blood Count 13.71 K/uL (4.8-10.8)
[2021-01-04 12:33] LABS: Albumin Level 3.7 gm/dl (3.4-5.0); BUN Creatinine Ratio 11.7 (10-20); Calcium 9.8 mg/dl (8.5-10.1); Creatinine Clr Calc Pharmacy 79.3 ml/min; Est GFR (African American) 74.4; Est GFR (Non-African American) 64.2; Potassium 3.7 mmol/L (3.5-5.1)
[2021-01-04 12:36] LABS: Bilirubin,Total 0.9 mg/dl (0.2-1); Globulin 3.7 gm/dl (2.5-4.0); Total Protein 7.4 gm/dl (6.4-8.2)
[2021-01-04 13:56] LABS: Appearance Urine Clear (Clear); Bilirubin Urine Negative (Negative); Blood Urine Trace (Negative); Color Urine Yellow; Glucose Urine UA Negative (Negative); Ketones Urine Negative (Negative); Leukocyte Esterase Urine Negative (Negative); Nitrite Urine Negative (Negative); Protein Urine Negative (Negative); Specific Gravity Urine 1.005 (1.000-1.030); Urobilinogen Urine Negative (Negative)
[2021-01-04] MEDS ORDERED: OPTIRAY 300 100mL IV ONE (14:06)
[2021-01-04 14:11] LABS: Bacteria Urine Automated Negative (Negative); RBC Urine Automated 0-4 /hpf (0-4); WBC Urine Automated 0 /hpf (0-5)
--- NOTE | 2021-01-04 14:19 | CT Scan Report ---
CT OF THE ABDOMEN AND PELVIS WITH CONTRAST CLINICAL HISTORY: Abdominal pain. COMPARISON STUDY: CT of the abdomen and pelvis October 10, 2020. KUB October 14, 2020. Small bowel f ollow-through October 15, 2020. TECHNIQUE: Following IV administration of 90 mL of Optiray, axial images of the abdomen and pelvis we re obtained from the lung bases to the proximal femurs. Images were reviewed in the axial, sagittal, and coronal planes. IV contrast was administered without complication. Automated exposure control wa s utilized for the study. A dose lowering technique was utilized adhering to the principles of ALARA . CT DOSE: 890.93 mGycm FINDINGS: Lung bases are unremarkable. No pneumatosis, free air or portal venous gas is present. Ther e is no biliary ductal dilatation status post cholecystectomy. Calcified granuloma within the spleen is noted. Hepatic steatosis is present. There is no hydronephrosis. The adrenal glands and kidneys ar e unremarkable. A small amount of fluid within the pelvis is noted. The proximal to mid small bowel i s moderately dilated and fluid-filled. There is mild associated mesenteric infiltration. A definitive transition point is not identified however there is gradual change in caliber within the left anteri or abdomen with decompressed distal small bowel. A small ventral hernia contains small and large gee l. This does not result in the bowel obstruction. There is a fat-containing umbilical hernia is well. The appendix is not visualized. Sigmoid diverticulosis is present without evidence for acute diverti culitis. There is no lymphadenopathy. No acute fracture or suspicious lesion is identified within the visualized skeletal structures. A calcification within the right hepatic lobe is benign. IMPRESSION: 1. Findings consistent with a small bowel obstruction. No definite transition point however gradual c hange in caliber within the left anterior abdomen with decompressed distal small bowel. The small bow el obstruction is statistically due to adhesions. Mild associated mesenteric infiltration. Small amou nt of ascites within the pelvis. 2. Small ventral hernia which contains small large bowel which does not result in the bowel obstructi on. Small fat-containing umbilical hernia. 3. Hepatic steatosis. ACT 112: Negative or not required by law. Electronically signed by: Levy West M.D. 01/04/2021 2:17 PM
--- NOTE | 2021-01-04 15:08 | Surgery Consultation ---
Date of Consultation January 04, 2021 Assessment & Plan (1) Small bowel obstruction: N/V have improved, can hold NG for now per her request. Hopefully will improve with bowel rest and IVF. Can have her regular meds and ice, apparently she had some difficulty last time when gabapentin was held. Was seen with Dr. Thompson in the ED. She understands an NG may be needed if she is not improving or has recurrent N/V. Dr. Thompson-patient seen in the emergency room with history of abdominal pain nausea vomiting and bloating she apparently has been moving her bowels August 2020 patient underwent laparoscopic cholecystectomy with lysis of adhesions and repair of small bowel by Dr. Rebolledo She was then admitted on 10/10/2020 with what appeared to be a partial small bowel obstruction requiring NG tube decompression She did not require surgery at that time and it did resolve She has evidence today on a CAT scan of at least partial small bowel obstruction with no specific transition point She refuses an NG tube-she said she has not vomited for 2 days We will continue with bowel rest, monitor her electrolytes, we did discuss that if she worsens she may need an operation with possible bowel resection History of Present Illness History of Present Illness 60 y/o female known from [facility] with repair enterotomy 10/07/20 was then readmitted for SBO for approx 1 week. Since then she has not had any abdominal symptoms until 2 days ago. Sunday morning around 10 AM she began having nausea feeling bloated. She had chicken and rice the night before and nothing that morning. She has been having "gas pain" migrating from mid abdomen to LLQ today. Has been passing flatus and having regular BMs the past few days. Drank a lot of water this morning. No other recent illness, fevers, chills, or dietary changes. Allergies Allergy/AdvReac Type Severity Reaction Status Date / Time amoxicillin [From Augmentin] Allergy Intermediate Hives Verified 01/04/21 13:09 clavulanic acid Allergy Intermediate Hives Verified 01/04/21 13:09 [From Augmentin] codeine AdvReac Intermediate Dizziness, Verified 01/04/21 13:09 vomiting morphine AdvReac Intermediate Vomiting Verified 01/04/21 13:09 prednisone AdvReac Intermediate Dizziness Verified 01/04/21 13:09 Home Medications Medication Instructions Recorded Confirmed Type albuterol sulfate 2.5 mg INHALATION Q6H PRN #1 ml 05/26/19 01/04/21 History sennosides 8.6 mg tablet 8.6 mg PO BID PRN #180 tab 05/27/19 01/04/21 Rx albuterol sulfate 90 mcg/actuation 2 puff INHALATION Q6H PRN #18 gm 12/17/19 01/04/21 Rx aerosol inhaler ibuprofen 800 mg tablet 800 mg PO DAILY PRN #90 tab 02/06/20 01/04/21 Rx docusate sodium 100 mg capsule 100 mg PO BID PRN cap 02/26/20 01/04/21 History potassium chloride 20 mEq 20 meq PO 2XWK tab 02/26/20 01/04/21 History tablet,extended release Spiriva with HandiHaler 1 cap INHALATION QAM 08/11/20 01/04/21 History gabapentin 300 mg PO TID 08/11/20 01/04/21 History gabapentin 600 mg PO TID 08/11/20 01/04/21 History lisinopril 10 mg PO QAM 08/11/20 01/04/21 History metoprolol tartrate 25 mg PO BID 08/11/20 01/04/21 History montelukast 10 mg PO QPM 08/11/20 01/04/21 History pantoprazole 40 mg PO QAM 08/11/20 01/04/21 History simethicone 180 mg capsule 180 mg PO DAILY PRN 10/19/20 01/04/21 History Symbicort 160 mcg-4.5 2 puff INHALATION BID #10.2 g NS 12/28/20 01/04/21 Rx mcg/actuation HFA aerosol inhaler atorvastatin 20 mg tablet 20 mg PO QPM #90 tab 12/31/20 01/04/21 Rx furosemide 20 mg PO 2XWK 01/04/21 01/04/21 History Patient History Medical History Arteriosclerosis of carotid artery Bulging discs Cardiomyopathy transient, mild cardiomyopathy (2010) > resolved per subsequent 2013 ECHO, follows with cardiology (Dr. Betancur) Cholelithiasis Chronic sinusitis COPD (chronic obstructive pulmonary disease) Diffuse abdominal pain Gallstones GERD (gastroesophageal reflux disease) History of ovarian cancer dx 2016 valeria tumor - s/p SRI BSO; no chemo or radiation HTN (hypertension) Hyperlipemia Hypertrophy of both inferior nasal turbinates Migraines Morbid obesity Morbid obesity with BMI of 45.0-49.9, adult Nasal septal deviation Neuropathy Osteoarthritis Poor historian Shortness of breath Sleep apnea non compliant with CPAP Temporomandibular joint click Vomiting Surgical History History of colonoscopy History of dental surgery History of lymph node biopsy History of tonsillectomy History of total abdominal hysterectomy and bilateral salpingo-oophorectomy Hx laparoscopic cholecystectomy (10/07/20) Laparoscopic Cholecystectomy, Enterolysis, repair of enterotomy. Dr. Rebolledo 10/07/20 Hx of appendectomy Family History Family/Other Cancer Hypertension Heart disease Mother Cancer Brother Cancer Hypertension Father Heart disease Other No family history of bleeding disorder Denies family history of Ovarian cancer Prostate cancer Myocardial infarction Breast cancer Colorectal cancer Social History Smoking Status: Current every day smoker Tobacco Type: Cigarettes Cigarettes Per Day: 10; Second Hand Exposure: No; Hx Alcohol Use: Yes Alcohol type: hard liquor Hx Substance Use: No Preferred Language: Upper Sorbian Communication Ability: Effective Network Operations Center Technician Required: No Beliefs That Will Affect Care: None marital status: Single marital status details: Current Living Situation: Alone current occupational status: disabled Feels Safe at Home: Yes caffeine: Yes Dental Care, Regularly: Yes Physical Activity Frequency: Does not Exercise Seatbelt Use: sometimes Sunscreen Use: No Assistive Devices: None Review of Systems Constitutional: no fever, no chills, no fatigue and no malaise Gastrointestinal: + abdominal pain, + belching and + nausea; no vomiting, no change in bowel habits and no diarrhea/loose stools Physical Exam Constitutional: WD/WN, vitals as above Respiratory: normal respiratory effort Cardiovascular: Rate/Rhythm: regular rate Gastrointestinal (Abdomen): Inspection/Auscultation: + abdomen distended (slightly) Percussion/Palpation: + abdomen tender (minimal lower abdomen) and abdomen soft Results & Data ([facility]) Vital Signs (Past 12 Hours) Vital Signs Temp Pulse Pulse Resp BP BP Pulse Ox 01/04/21 14:31 79 18 96 01/04/21 14:30 77 12 139/75 96 01/04/21 14:13 77 19 97 01/04/21 14:12 78 22 121/58 L 98 01/04/21 14:11 79 22 98 01/04/21 13:30 80 22 142/79 H 95 01/04/21 13:00 78 24 128/91 94 01/04/21 12:32 77 22 138/76 96 01/04/21 12:30 78 23 93 01/04/21 12:21 77 17 138/76 97 01/04/21 12:00 87 20 97 01/04/21 11:37 36.8 C 87 87 20 145/70 H 145/70 H 98 PG Care Time/CCT Total # of Minutes Spent Total Time Spent with Patient: Total time spent is greater than 50% in coordination of care (as documented) at patient's floor/unit and/or counseling patient: Coding Level of Care Code 64267 Inpt Consult Level 3 Diagnoses Small bowel obstruction K56.609
--- NOTE | 2021-01-04 15:10 | XRay Report ---
XR chest 1V portable HISTORY: Small bowel obstruction. Follow-up. COMPARISON: Chest 10/10/2020. FINDINGS: Cardiac silhouette is mildly enlarged. There is mild diffuse interstitial thickening which is likely chronic. No new focal lung consolidations to suggest pneumonia. No evidence for pulmonary e abril. No pleural effusions. No pneumothorax. Old, healed left-sided rib fracture. IMPRESSION: Mild cardiomegaly with mild chronic interstitial thickening. ACT 112: Negative or not required by law. Electronically signed by: Jesus Parr M.D. 01/04/2021 3:08 PM
[2021-01-04 15:39] LABS: Influenza A virus by PCR Negative (Neg); Influenza B virus by PCR Negative (Neg); RSV by PCR Negative (Neg); SARS CoV2 RNA(COVID-19) InHosp NEGATIVE (Negative)
--- NOTE | 2021-01-04 15:48 | History & Physical Report ---
Date of Service January 04, 2021 Assessment & Plan (1) Small bowel obstruction: No NG tube per patient wishes IV fluids N.p.o. surgery consult appreciated (2) S/P cholecystectomy: Notable recent history of this with likely cause of small bowel obstruc tion adhesions from this operation. (3) COPD (chronic obstructive pulmonary disease): Continue her routine inhalers (Symbicort) or hospital formulary equiva lent. No acute exacerbation. (4) Chronic diastolic CHF (congestive heart failure): Hold Lasix while on IV fluids Appears hypovolemic at present (5) Hypertension: Continue metoprolol tartrate 25 mg p.o. twice daily and lisinopril 10 mg p.o. every morning (6) Hypercholesterolemia: Continue atorvastatin 20 mg. Daily (7) Acid reflux disease with ulcer: Continue pantoprazole 40 mg p.o. daily (8) Peripheral neuropathy: Continue her usual gabapentin given previous n.p.o. status without vesicles withdrawals during her last admission. (9) Obstructive sleep apnea of adult: Noted history of this however patient does not wear CPAP. (10) Tobacco abuse: Nicotine patch. Counseled regarding tobacco cessation. Admission and Anticipated Discharge Date Admission Date: January 04, 2021 History of Present Illness Chief Complaint: Abdominal pain Primary Care Provider: Britney Kyle MD Bettye Hicks is a 60-year-old female with history of small bowel obstruction who presents to the ER with abdominal pain. Symptoms started on Sunday morning around 10 AM with nausea and feeling bloated. Abdominal pain started shortly after this which has been generalized but mostly in the left lower quadrant. She has been passing gas. She reports on her last small bowel obstruction in gabapentin was not given due to n.p.o. status and this caused lower restlessness and sweats. She required an NG tube on that occasion but feels much better than her previous admission and currently declines NG tube insertion. She denies any current nausea, vomiting, hematemesis, melena or bright red blood in stool. In the ER CT abdomen/pelvis showed findings consistent with small bowel obstruction with no definitive transition point. She was referred to medicine for admission ongoing management of small bowel obstruction. She has also been seen by the surgical team. Allergies Allergy/AdvReac Type Severity Reaction Status Date / Time amoxicillin [From Augmentin] Allergy Intermediate Hives Verified 01/04/21 13:09 clavulanic acid Allergy Intermediate Hives Verified 01/04/21 13:09 [From Augmentin] codeine AdvReac Intermediate Dizziness, Verified 01/04/21 13:09 vomiting morphine AdvReac Intermediate Vomiting Verified 01/04/21 13:09 prednisone AdvReac Intermediate Dizziness Verified 01/04/21 13:09 Home Medications Medication Instructions Recorded Confirmed Type albuterol sulfate 2.5 mg INHALATION Q6H PRN #1 ml 05/26/19 01/04/21 History sennosides 8.6 mg tablet 8.6 mg PO BID PRN #180 tab 05/27/19 01/04/21 Rx albuterol sulfate 90 mcg/actuation 2 puff INHALATION Q6H PRN #18 gm 12/17/19 01/04/21 Rx aerosol inhaler ibuprofen 800 mg tablet 800 mg PO DAILY PRN #90 tab 02/06/20 01/04/21 Rx docusate sodium 100 mg capsule 100 mg PO BID PRN cap 02/26/20 01/04/21 History potassium chloride 20 mEq 20 meq PO 2XWK tab 02/26/20 01/04/21 History tablet,extended release Spiriva with HandiHaler 1 cap INHALATION QAM 08/11/20 01/04/21 History gabapentin 300 mg PO TID 08/11/20 01/04/21 History gabapentin 600 mg PO TID 08/11/20 01/04/21 History lisinopril 10 mg PO QAM 08/11/20 01/04/21 History metoprolol tartrate 25 mg PO BID 08/11/20 01/04/21 History montelukast 10 mg PO QPM 08/11/20 01/04/21 History pantoprazole 40 mg PO QAM 08/11/20 01/04/21 History simethicone 180 mg capsule 180 mg PO DAILY PRN 10/19/20 01/04/21 History Symbicort 160 mcg-4.5 2 puff INHALATION BID #10.2 g NS 12/28/20 01/04/21 Rx mcg/actuation HFA aerosol inhaler atorvastatin 20 mg tablet 20 mg PO QPM #90 tab 12/31/20 01/04/21 Rx furosemide 20 mg PO 2XWK 01/04/21 01/04/21 History Past Med/Surg History Medical History Arteriosclerosis of carotid artery Bulging discs Cardiomyopathy transient, mild cardiomyopathy (2010) > resolved per subsequent 2013 ECHO, follows with cardiology (Dr. Betancur) Cholelithiasis Chronic sinusitis COPD (chronic obstructive pulmonary disease) Diffuse abdominal pain Gallstones GERD (gastroesophageal reflux disease) History of ovarian cancer dx 2016 valeria tumor - s/p SRI BSO; no chemo or radiation HTN (hypertension) Hyperlipemia Hypertrophy of both inferior nasal turbinates Migraines Morbid obesity Morbid obesity with BMI of 45.0-49.9, adult Nasal septal deviation Neuropathy Osteoarthritis Poor historian Shortness of breath Sleep apnea non compliant with CPAP Temporomandibular joint click Vomiting Surgical History History of colonoscopy History of dental surgery History of lymph node biopsy History of tonsillectomy History of total abdominal hysterectomy and bilateral salpingo-oophorectomy Hx laparoscopic cholecystectomy (10/07/20) Laparoscopic Cholecystectomy, Enterolysis, repair of enterotomy. Dr. Rebolledo 10/07/20 Hx of appendectomy Family History Family/Other Cancer Hypertension Heart disease Mother Cancer Brother Cancer Hypertension Father Heart disease Other No family history of bleeding disorder Denies family history of Ovarian cancer Prostate cancer Myocardial infarction Breast cancer Colorectal cancer Social History Smoking Status: Current every day smoker Tobacco Type: Cigarettes Cigarettes Per Day: 10; Second Hand Exposure: No; Hx Alcohol Use: Yes Alcohol type: hard liquor Hx Substance Use: No Preferred Language: Honduran Communication Ability: Effective Pigment Processor Required: No Beliefs That Will Affect Care: None marital status: Single marital status details: Current Living Situation: Alone current occupational status: disabled Feels Safe at Home: Yes caffeine: Yes Dental Care, Regularly: Yes Physical Activity Frequency: Does not Exercise Seatbelt Use: sometimes Sunscreen Use: No Assistive Devices: Glasses Review of Systems Review of Systems: All systems reviewed & are unremarkable except as noted in HPI & below Physical Exam Constitutional: well developed, well nourished and + morbidly obese; no acute distress Eyes: + anicteric sclerae; normal pupil size ENMT: Mouth: + dry oral mucous membranes Respiratory: normal respiratory effort, lungs clear to auscultation Cardiovascular: RRR, no murmur, no edema Gastrointestinal (Abdomen): Inspection/Auscultation: + abdomen distended and normal bowel sounds Percussion/Palpation: + abdomen tender (LLQ) and abdomen soft; no guarding and abdomen not rigid Musculoskeletal: no cyanosis or clubbing, extremities motor strength 5/5 Skin: no rashes, warm and dry Neurologic: moves all extremities and awake; not confused Psychiatric: A+Ox3, euthymic affect Results & Data Results & Data ([facility]) Vital Signs (Past 12 Hours) Vital Signs Temp Pulse Pulse Resp BP BP Pulse Ox 01/04/21 15:31 80 17 96 01/04/21 15:30 74 16 141/82 H 95 01/04/21 15:00 78 22 107/59 L 96 01/04/21 14:31 79 18 96 01/04/21 14:30 77 12 139/75 96 01/04/21 14:13 77 19 97 01/04/21 14:12 78 22 121/58 L 98 01/04/21 14:11 79 22 98 01/04/21 13:30 80 22 142/79 H 95 01/04/21 13:00 78 24 128/91 94 01/04/21 12:32 77 22 138/76 96 01/04/21 12:30 78 23 93 01/04/21 12:21 77 17 138/76 97 01/04/21 12:00 87 20 97 01/04/21 11:37 36.8 C 87 87 20 145/70 H 145/70 H 98 Diagnostic Findings XR chest 1V portable IMPRESSION: Mild cardiomegaly with mild chronic interstitial thickening. CT OF THE ABDOMEN AND PELVIS WITH CONTRAST IMPRESSION: 1. Findings consistent with a small bowel obstruction. No definite transition point however gradual change in caliber within the left anterior abdomen with decompressed distal small bowel. The small bowel obstruction is statistically due to adhesions. Mild associated mesenteric infiltration. Small amount of ascites within the pelvis. 2. Small ventral hernia which contains small large bowel which does not result in the bowel obstruction. Small fat-containing umbilical hernia. 3. Hepatic steatosis. Medications Administered ER medications given: None ECG Indication: abdominal pain Rate (beats per minute): 80 Findings: + other (T wave flattening in anterior leads) Comparison ECG Date: from (October 10, 2020) Change: no significant change Code Status & VTE Plan Code Status Full VTE Prophylaxis Plan VTE Prophylaxis will be ordered: Yes Reason for no VTE drug order: Treatment not indicated PG Care Time/CCT Total # of Minutes Spent Total Time Spent with Patient: Total time spent is greater than 50% in coordination of care (as documented) at patient's floor/unit and/or counseling patient: Coding Level of Care Code 18851 Initial Inpt Care Lvl 3 Diagnoses Small bowel obstruction K56.609 S/P cholecystectomy Z90.49 COPD (chronic obstructive pulmonary disease) J44.9 Chronic diastolic CHF (congestive heart failure) I50.32 Hypertension I10 Hypercholesterolemia E78.00 Acid reflux disease with ulcer K21.9 Peripheral neuropathy G62.9 Obstructive sleep apnea of adult G47.33 Tobacco abuse Z72.0
[2021-01-04 16:41] LABS: Magnesium 1.7 mg/dl (1.8-2.4); Phosphorus 3.3 mg/dl (2.5-4.9)
[2021-01-04] MEDS ORDERED: MAGNESIUM SULFATE / D5W 1 GM/100 ML BAG IV STA (16:51)
[2021-01-04] MEDS ORDERED: MAGNESIUM SULFATE / D5W 1 GM/100 ML BAG IV SCH (18:45)
[2021-01-04] MEDS: LACTATED RINGER'S 1,000 ML IV SCH (18:54)
[2021-01-04] MEDS: GABAPENTIN 600 MG TAB PO SCH (20:43)
[2021-01-04] MEDS: ATORVASTATIN 20 MG TAB PO SCH (20:44)
[2021-01-04] MEDS: MONTELUKAST SODIUM 10 MG TABLET PO SCH (20:44)
[2021-01-04] MEDS: METOPROLOL TARTRATE 25 MG TAB PO SCH (20:44)
[2021-01-04] MEDS: GABAPENTIN 300 MG CAP PO SCH (20:45)
[2021-01-05] MEDS: LACTATED RINGER'S 1,000 ML IV SCH ×2 (03:24→11:18)
[2021-01-05] MEDS: NICOTINE 14 MG/24 HR PATCH TD SCH (05:16)
--- NOTE | 2021-01-05 06:11 | Surgery Progress Note ---
Date of Service January 05, 2021 Assessment & Plan (1) Small bowel obstruction: Patient has had no emesis and wants to try clear liquids We will begin clear liquids Add some senna syrup Check her laboratories including mag and phos Encourage ambulation Admission and Anticipated Discharge Date Admission Date: January 04, 2021 Subjective Patient awake and alert in no pain Taking no pain medication Wants to try some clear liquids Physical Exam Constitutional: well developed; no acute distress Eyes: + anicteric sclerae Respiratory: normal respiratory effort; no respiratory distress Cardiovascular: Rate/Rhythm: regular rate Gastrointestinal (Abdomen): Percussion/Palpation: abdomen nontender Abdomen is softer and less distended She does have some bowel sounds Musculoskeletal: Head/Neck/Chest: head atraumatic Skin: no rashes, warm and dry Neurologic: awake Psychiatric: Orientation: alert Results & Data ([facility]) Vital Signs (Past 12 Hours) Vital Signs Temp Pulse Pulse Resp BP Pulse Ox 01/04/21 23:35 36.4 C 67 18 114/73 93 01/04/21 20:08 77 20 122/77 95 01/04/21 18:33 37 C 76 18 136/76 98 PG Care Time/CCT Total # of Minutes Spent Total Time Spent with Patient: Total time spent is greater than 50% in coordination of care (as documented) at patient's floor/unit and/or counseling patient: Coding Level of Care Code 46645 Subseq Hosp Care Lvl 3 Diagnoses Small bowel obstruction K56.609
[2021-01-05 07:01] LABS: BUN Creatinine Ratio 12.3 (10-20); Calcium 8.9 mg/dl (8.5-10.1); Creatinine Clr Calc Pharmacy 110.7 ml/min; Est GFR (African American) 108.7; Est GFR (Non-African American) 93.7; Phosphorus 3.4 mg/dl (2.5-4.9); Potassium 3.6 mmol/L (3.5-5.1)
[2021-01-05] MEDS: GABAPENTIN 300 MG CAP PO SCH ×3 (08:33→21:44)
[2021-01-05] MEDS: PANTOprazole 40 MG TAB PO SCH (08:34)
[2021-01-05] MEDS: lisinopril 10 MG TAB PO SCH (08:34)
[2021-01-05] MEDS: METOPROLOL TARTRATE 25 MG TAB PO SCH ×2 (08:34→21:44)
[2021-01-05] MEDS: GABAPENTIN 600 MG TAB PO SCH ×3 (08:34→21:43)
[2021-01-05] MEDS: FLUTICASONE/VILANTEROL 100/25MCG 14 PUFFS/INHALER INH SCH (08:35)
[2021-01-05] MEDS: UMECLIDINIUM BROMIDE 62.5MCG/BLISTER 7 PUFFS/INHALER INH SCH (08:35)
[2021-01-05] MEDS: SENNOSIDES 8.8 MG/5 ML UDC PO SCH ×2 (08:38→21:45)
[2021-01-05] MEDS ORDERED: FUROSEMIDE 20 MG TAB PO SCH (09:00)
[2021-01-05] MEDS: ENOXAPARIN INJ 40 MG/0.4 ML SYR SQ SCH (09:51)
--- NOTE | 2021-01-05 13:55 | Hospitalist Progress Note ---
Date of Service January 05, 2021 Assessment & Plan (1) Small bowel obstruction: No NG tube per patient wishes. She is now passing flatus and feels as if she is getting better. Clear liquids have been started by surgery. IV fluids taper down. Advance diet as tolerated. Ssurgery consult appreciated (2) Obstructive sleep apnea of adult: Stable. CPAP at night as tolerated (3) COPD (chronic obstructive pulmonary disease): Stable. Treated with Singulair and umeclidinium (4) Peripheral neuropathy: Stable. Continue gabapentin therapy (5) Hypertension: Treated with lisinopril and metoprolol. Stable (6) Hypercholesterolemia: Continue statin therapy DVT prophylaxis: Lovenox subcu Disposition: Eventual discharge to home. Hopefully tomorrow, January 06 Admission and Anticipated Discharge Date Admission Date: January 04, 2021 Subjective Alert. No new problems. She is passing flatus and surgery has started a clear liquid diet. IV fluids taper down. Hopefully diet can be advanced quickly and she can be discharged home tomorrow if she continues to improve. Review of Systems Review of Systems: All systems reviewed & are unremarkable except as noted in HPI & below Physical Exam Physical Exam: General-alert and oriented x3, no fevers, no chills HEENT-head atraumatic and normocephalic, pupils equal and reactive to light, extraocular muscles intact Neck-no lymphadenopathy or thyromegaly, trachea midline Chest-clear to auscultation percussion. No rales wheezing or rhonchi Cardiac-regular rate and rhythm, normal S1 and S2, no murmurs Abdomen-normal bowel sounds, nontender, no hepatosplenomegaly Extremities-no cyanosis, clubbing, or edema Neuro-cranial nerves II through XII intact, motor and sensory function within normal limits, strength symmetrical , no focal deficits Psych-normal affect, normal mood Results & Data Results & Data ([facility]) Vital Signs (Past 12 Hours) Vital Signs Temp Pulse Resp BP Pulse Ox 01/05/21 07:06 36.5 C 79 18 145/85 H 93 Laboratory Results 01/04/21 11:40 01/05/21 06:05 PG Care Time/CCT Total # of Minutes Spent Total Time Spent with Patient: Total time spent is greater than 50% in coordination of care (as documented) at patient's floor/unit and/or counseling patient: Coding Level of Care Code 02238 Subseq Hosp Care Lvl 3 Diagnoses Small bowel obstruction K56.609 Obstructive sleep apnea of adult G47.33 COPD (chronic obstructive pulmonary disease) J44.9 Peripheral neuropathy G62.9 Hypertension I10 Hypercholesterolemia E78.00
--- NOTE | 2021-01-05 16:00 | Electrocardiogram Report ---
Test Reason : Blood Pressure : / mmHG Vent. Rate : 080 BPM Atrial Rate : 080 BPM P-R Int : 162 ms QRS Dur : 086 ms QT Int : 396 ms P-R-T Axes : 051 023 032 degrees QTc Int : 456 ms Normal sinus rhythm T wave abnormality, consider anterior ischemia Abnormal ECG When compared with ECG of 10-OCT-2020 15:23, No significant change was found Confirmed by Jefferson Betancur ([id number]) on 01/05/2021 4:00:27 PM Referred By: REFERRED SELF Confirmed By:Jefferson Betancur
--- NOTE | 2021-01-05 20:02 | Emergency Department Note ---
Impression & Plan Small bowel obstruction, Abdominal pain ED Provider Note NAME: BRIAN CARRENO AGE: 60 SEX: F : 1960 ARRIVES VIA: Ambulance INFORMANT: Patient, ED PROVIDER(S): Austin Emmanuel MD CHIEF COMPLAINT: HPI: This is a 60-year-old female who presents emergency department complaining of abdominal pain. The patient reports she began having abdominal pain Sunday. She reports that the pain started started in her upper abdomen with radiation into the lower abdomen. She reports the pain has slowly moved down into her lower abdomen. She reports nothing appears to make the pain better or worse. She has not taken anything for the pain.. The patient began vomiting prior to arrival. She rates the pain as an aching sensation. Patient has a 6 significant history with her gallbladder having been taken out and then resection of part of her bowel. ROS: See above HPI for pertinent positives & negatives. A total of 10 systems reviewed and were otherwise negative. PAST MEDICAL HISTORY: See Below PAST SURGICAL HISTORY: See Below FAMILY HISTORY: See Below SOCIAL HISTORY: See Below HOME MEDICATIONS: See Below ALLERGIES: See Below VITALS: See Below PHYSICAL EXAMINATION: VITAL SIGNS - Vital signs and nursing notes were reviewed. GENERAL - 60-year-old female appearing stated age who is in no acute distress. Communicates well with provider and answers questions appropriately. SKIN - Without rashes. HEAD - NC/AT. EYES - PERRL with EOMI bilaterally. Sclera anicteric. Palpebral conjunctiva pink and moist with no injection noted. EARS - No deformities of external structures noted on gross examination bilaterally. NOSE - Midline and without cyanosis. No epistaxis or purulent drainage noted. Septum midline without deviation or septal hematoma noted. MOUTH/OROPHARYNX - Without perioral cyanosis. Buccal mucosa pink and moist and without leukoplakia. Tongue midline with equal elevation of palate bilaterally. No tonsillar hypertrophy, erythema, or exudates noted. NECK - Neck with FROM. Supple to palpation. No nuchal rigidity. LUNGS - Chest wall symmetric without accessory muscle use, intercostals retractions, or central cyanosis. Normal vesicular breath sounds CTA B/L. No wheezes, rales, or rhonchi appreciated. CARDIAC - RRR with S1/S2. No murmur, rubs, or gallops appreciated. ABDOMEN - Abdominal contour without pulsations or visible masses. BS normoa ctive all four quadrants. tender to LLQ and RLQ EXTREMITIES - No clubbing or peripheral cyanosis. No pretibial edema present. +3/5 radial, posterior tibial, and dorsalis pedis pulses palpated throughout. +5/5 strength noted in UE/LE bilaterally. NEUROLOGIC - Cranial nerves II through XII grossly intact. Sensory intact to light touch throughout. Patellar reflexes +2/4. PSYCH - A&Ox3 and cooperates fully with examiner. Pt is very pleasant and interacts well with examiner. MEDICAL DECISION MAKING: Patient was seen and evaluated as above in room B7. Review was performed of nursing notes and vital signs. I did review pertinent previous visits and patient history. After obtaining a thorough history and physical examination the above work up was performed. This is a 60-year-old female who presents emergency department complaining of abdominal pain that has progressed. Using shared medical decision making with the patient she was sent for a CAT scan of the abdomen pelvis. She does have an elevation in her white blood cell count. CAT scan is consistent with a small bowel obstruction. For this reason I did discuss the case with surgery as well as internal medicine. Patient is going to be admitted to the hospital. She is Covid negative. An order was placed for continuous cardiac monitoring. The monitor shows a rate of 74 with Normal SInus rhythm. The patient was evaluated during a period of high volume and high acuity during the global COVID-19 pandemic, and that diagnosis was suspected/considered upon their initial presentation. Their evaluation, treatment and testing was consistent with current guidelines for patients who present with complaints or symptoms that may be related to COVID-19. Patient was seen while provider was wearing PPE. Triage Nursing notes reviewed. Prior medical records reviewed Vital Signs: reviewed and remarkable for no significant abnormalities Differential diagnosis: Appendicitis, ovarian cyst, ovarian torsion, ectopic , TOA, PID, infections, diverticulitis, UTI, obstruction, mesenteric ischemia, aortic path ology, inflammatory bowel disease, renal colic, PUD, pancreatitis, biliary pathology, hernia, volvulus, constipation, as well as other pathologies. ER treatment provided: See below Diagnostics interpreted by me: ECG: Normal sinus rhythm T wave inversions in the anterior leads no ST elevation or depression QTC is 456 ventricular rate is 80 EKG is compared to 10/10/2020 no significant change was found Laboratory studies: As stated above and show below. Imaging studies: See below Consultation(s): Gen Surgery Intenal Medicine Past Med/Surg History Medical History Arteriosclerosis of carotid artery Bulging discs Cardiomyopathy transient, mild cardiomyopathy (2010) > resolved per subsequent 2013 ECHO, follows with cardiology (Dr. Betancur) Cholelithiasis Chronic sinusitis COPD (chronic obstructive pulmonary disease) Diffuse abdominal pain Gallstones GERD (gastroesophageal reflux disease) History of ovarian cancer dx 2016 valeria tumor - s/p SRI BSO; no chemo or radiation HTN (hypertension) Hyperlipemia Hypertrophy of both inferior nasal turbinates Migraines Morbid obesity Morbid obesity with BMI of 45.0-49.9, adult Nasal septal deviation Neuropathy Osteoarthritis Poor historian Shortness of breath Sleep apnea non compliant with CPAP Temporomandibular joint click Vomiting Surgical History History of colonoscopy History of dental surgery History of lymph node biopsy History of tonsillectomy History of total abdominal hysterectomy and bilateral salpingo-oophorectomy Hx laparoscopic cholecystectomy (10/07/20) Laparoscopic Cholecystectomy, Enterolysis, repair of enterotomy. Dr. Rebolledo 10/07/20 Hx of appendectomy Family History Family/Other Cancer Hypertension Heart disease Mother Cancer Brother Cancer Hypertension Father Heart disease Other No family history of bleeding disorder Denies family history of Ovarian cancer Prostate cancer Myocardial infarction Breast cancer Colorectal cancer Social History Smoking Status: Current every day smoker Tobacco Type: Cigarettes Cigarettes Per Day: 10; Second Hand Exposure: No; Do You Dip or Chew Tobacco: No; Tobacco Cessation Education Requested by Patient: No Hx Alcohol Use: Yes Alcohol type: hard liquor Hx Substance Use: No Preferred Language: Icelandic Communication Ability: Effective Needlemaker Required: No Beliefs That Will Affect Care: None marital status: Single marital status details: Current Living Situation: Alone current occupational status: disabled Other Information That Helps Us Care for You: No Feels Safe at Home: Yes caffeine: Yes Dental Care, Regularly: Yes Physical Activity Frequency: Does not Exercise Seatbelt Use: sometimes Sunscreen Use: No Assistive Devices: None Allergies Allergies Allergy/AdvReac Type Severity Reaction Status Date / Time amoxicillin [From Augmentin] Allergy Intermediate Hives Verified 01/04/21 13:09 clavulanic acid Allergy Intermediate Hives Verified 01/04/21 13:09 [From Augmentin] codeine AdvReac Intermediate Dizziness, Verified 01/04/21 13:09 vomiting morphine AdvReac Intermediate Vomiting Verified 01/04/21 13:09 prednisone AdvReac Intermediate Dizziness Verified 01/04/21 13:09 Home Meds Home Medications Medication Instructions Recorded Confirmed albuterol sulfate 2.5 mg INHALATION Q6H PRN #1 ml 05/26/19 01/04/21 docusate sodium 100 mg capsule 100 mg PO BID PRN cap 02/26/20 01/04/21 potassium chloride 20 mEq 20 meq PO 2XWK tab 02/26/20 01/04/21 tablet,extended release Spiriva with HandiHaler 1 cap INHALATION QAM 08/11/20 01/04/21 gabapentin 300 mg PO TID 08/11/20 01/04/21 gabapentin 600 mg PO TID 08/11/20 01/04/21 lisinopril 10 mg PO QAM 08/11/20 01/04/21 metoprolol tartrate 25 mg PO BID 08/11/20 01/04/21 montelukast 10 mg PO QPM 08/11/20 01/04/21 pantoprazole 40 mg PO QAM 08/11/20 01/04/21 simethicone 180 mg capsule 180 mg PO DAILY PRN 10/19/20 01/04/21 furosemide 20 mg PO 2XWK 01/04/21 01/04/21 Previous Rx's Medication Instructions Recorded sennosides 8.6 mg tablet 8.6 mg PO BID PRN #180 tab 05/27/19 albuterol sulfate 90 mcg/actuation 2 puff INHALATION Q6H PRN #18 gm 12/17/19 aerosol inhaler ibuprofen 800 mg tablet 800 mg PO DAILY PRN #90 tab 02/06/20 Symbicort 160 mcg-4.5 2 puff INHALATION BID #10.2 g NS 12/28/20 mcg/actuation HFA aerosol inhaler atorvastatin 20 mg tablet 20 mg PO QPM #90 tab 12/31/20 Results & Data (ED) Laboratory Data Result diagrams: 01/04/21 11:40 01/05/21 06:05 Lab Results 01/04/21 01/04/21 01/04/21 Range/Units 11:40 11:40 11:40 WBC 13.71 H (4.8-10.8) K/uL RBC 4.73 (4.2-5.4) M/uL Hgb 13.9 (12.0-16.0) g/dL Hct 41.1 (37-47) % MCV 86.9 (80-100) fL MCH 29.4 (25-34) pg MCHC 33.8 (32-36) g/dL RDW Std Deviation 47.0 H (36.4-46.3) fL RDW Coeff of Nico 14.7 H (11.5-14.5) % Plt Count 344 (130-400) K/uL MPV 10.2 (7.4-10.4) fL Immature Gran % (Auto) 0.3 % Neut % (Auto) 77.0 % Lymph % (Auto) 15.1 % [place] % (Auto) 5.8 % Eos % (Auto) 1.7 % Baso % (Auto) 0.1 % Neut # (Auto) 10.55 H (1.4-6.5) K/uL Lymph # (Auto) 2.07 (1.2-3.4) K/uL [place] # (Auto) 0.80 H (0.11-0.59) K/uL Eos # (Auto) 0.23 (0-0.5) K/uL Baso # (Auto) 0.02 (0-0.2) K/uL Immature Gran # (Auto) 0.04 H (0.00-0.02) K/uL Sodium 134 L (136-145) mmol/L Potassium 3.7 (3.5-5.1) mmol/L Chloride 101 (98-107) mmol/L Carbon Dioxide 27 (21-32) mmol/L Anion Gap 7.0 (3-11) BUN 11 (7-18) mg/dl Creatinine 0.95 (0.6-1.2) mg/dl Est Cr Clr Drug Dosing 79.3 ml/min Est GFR ( Amer) 74.4 Est GFR (Non-Af Amer) 64.2 BUN/Creatinine Ratio 11.7 (10-20) Glucose 111 H (70-99) mg/dl Calcium 9.8 (8.5-10.1) mg/dl Phosphorus 3.3 (2.5-4.9) mg/dl Magnesium 1.7 L (1.8-2.4) mg/dl Total Bilirubin 0.9 (0.2-1) mg/dl AST 5 L (15-37) U/L ALT 14 (12-78) U/L Alkaline Phosphatase 94 (45-117) U/L Total Protein 7.4 (6.4-8.2) gm/dl Albumin 3.7 (3.4-5.0) gm/dl Globulin 3.7 (2.5-4.0) gm/dl Albumin/Globulin Ratio 1.0 (0.9-2) Lipase 75 (73-393) U/L Urine Color Urine Appearance (Clear) Urine pH (4.5-7.5) Ur Specific [place] (1.000-1.030) Urine Protein (Negative) Urine Glucose (UA) (Negative) Urine Ketones (Negative) Urine Blood (Negative) Urine Nitrite (Negative) Urine Bilirubin (Negative) Urine Urobilinogen (Negative) Ur Leukocyte Esterase (Negative) Urine WBC (Auto) (0-5) /hpf Urine RBC (Auto) (0-4) /hpf U Hyaline Cast (Auto) (0-5) /lpf U Epithel Cells (Auto) (0-5) /lpf Urine Bacteria (Auto) (Negative) COVID-19 Eval Order SARS-CoV-2 (PCR) (Negative) Influenza Type A (PCR) (Neg) Influenza Type B (PCR) (Neg) RSV (RT-PCR) (Neg) 01/04/21 01/04/21 01/04/21 Range/Units 13:43 14:40 14:40 WBC (4.8-10.8) K/uL RBC (4.2-5.4) M/uL Hgb (12.0-16.0) g/dL Hct (37-47) % MCV (80-100) fL MCH (25-34) pg MCHC (32-36) g/dL RDW Std Deviation (36.4-46.3) fL RDW Coeff of Nico (11.5-14.5) % Plt Count (130-400) K/uL MPV (7.4-10.4) fL Immature Gran % (Auto) % Neut % (Auto) % Lymph % (Auto) % [place] % (Auto) % Eos % (Auto) % Baso % (Auto) % Neut # (Auto) (1.4-6.5) K/uL Lymph # (Auto) (1.2-3.4) K/uL [place] # (Auto) (0.11-0.59) K/uL Eos # (Auto) (0-0.5) K/uL Baso # (Auto) (0-0.2) K/uL Immature Gran # (Auto) (0.00-0.02) K/uL Sodium (136-145) mmol/L Potassium (3.5-5.1) mmol/L Chloride (98-107) mmol/L Carbon Dioxide (21-32) mmol/L Anion Gap (3-11) BUN (7-18) mg/dl Creatinine (0.6-1.2) mg/dl Est Cr Clr Drug Dosing ml/min Est GFR ( Amer) Est GFR (Non-Af Amer) BUN/Creatinine Ratio (10-20) Glucose (70-99) mg/dl Calcium (8.5-10.1) mg/dl Phosphorus (2.5-4.9) mg/dl Magnesium (1.8-2.4) mg/dl Total Bilirubin (0.2-1) mg/dl AST (15-37) U/L ALT (12-78) U/L Alkaline Phosphatase (45-117) U/L Total Protein (6.4-8.2) gm/dl Albumin (3.4-5.0) gm/dl Globulin (2.5-4.0) gm/dl Albumin/Globulin Ratio (0.9-2) Lipase (73-393) U/L Urine Color Yellow Urine Appearance Clear (Clear) Urine pH 7.0 (4.5-7.5) Ur Specific [place] 1.005 (1.000-1.030) Urine Protein Negative (Negative) Urine Glucose (UA) Negative (Negative) Urine Ketones Negative (Negative) Urine Blood Trace H (Negative) Urine Nitrite Negative (Negative) Urine Bilirubin Negative (Negative) Urine Urobilinogen Negative (Negative) Ur Leukocyte Esterase Negative (Negative) Urine WBC (Auto) 0 (0-5) /hpf Urine RBC (Auto) 0-4 (0-4) /hpf U Hyaline Cast (Auto) 1-5 (0-5) /lpf U Epithel Cells (Auto) 10-20 H (0-5) /lpf Urine Bacteria (Auto) Negative (Negative) COVID-19 Eval Order CovFluRsv at [facility] SARS-CoV-2 (PCR) NEGATIVE (Negative) Influenza Type A (PCR) Negative (Neg) Influenza Type B (PCR) Negative (Neg) RSV (RT-PCR) Negative (Neg) Administered Medications Atorvastatin Calcium (Atorvastatin 20 Mg Tab) 20 mg PO QPM [facility] Stop: 02/03/21 20:59 Last Admin: 01/04/21 20:44 Dose: 20 mg Documented by: [id number] Enoxaparin Sodium (Enoxaparin Inj 40 Mg/0.4 Ml Syr) 40 mg SQ QAM [facility] Stop: 02/04/21 09:29 Last Admin: 01/05/21 09:51 Dose: 40 mg Documented by: [id number] Fluticasone/Vilanterol (Fluticasone/Vilanterol 100/25mcg 14 Puffs/Inhaler) 1 puffs INH DAILY [facility]; Protocol Stop: 02/04/21 08:59 Last Admin: 01/05/21 08:35 Dose: 1 puffs Documented by: [id number] Furosemide (Furosemide 20 Mg Tab) 20 mg PO Q4D@0900 [facility] Stop: 02/04/21 08:59 Last Admin: 01/05/21 09:21 Dose: 20 mg Documented by: [id number] Gabapentin (Gabapentin 600 Mg Tab) 600 mg PO TID [facility] Stop: 02/03/21 20:59 Last Admin: 01/05/21 13:29 Dose: 600 mg Documented by: [id number] Admin: 01/05/21 08:34 Dose: 600 mg Documented by: [id number] Admin: 01/04/21 20:43 Dose: 600 mg Documented by: [id number] Gabapentin (Gabapentin 300 Mg Cap) 300 mg PO TID [facility] Stop: 02/03/21 20:59 Last Admin: 01/05/21 13:29 Dose: 300 mg Documented by: [id number] Admin: 01/05/21 08:33 Dose: 300 mg Documented by: [id number] Admin: 01/04/21 20:45 Dose: 300 mg Documented by: [id number] Lactated Ringer's (Lr) 1,000 mls @ 75 mls/hr IV .[id number] [facility] Stop: 02/03/21 17:46 Last Admin: 01/05/21 11:18 Dose: 75 mls/hr Documented by: [id number] Infusion: 01/05/21 11:17 Dose: 0 mls/hr Documented by: [id number] Infusion: 01/05/21 09:21 Dose: 75 mls/hr Documented by: [id number] Admin: 01/05/21 03:24 Dose: 125 mls/hr Documented by: [id number] Infusion: 01/05/21 02:54 Dose: 125 mls/hr Documented by: [id number] Admin: 01/04/21 18:54 Dose: 125 mls/hr Documented by: [id number] Lisinopril (L[facility]opril 10 Mg Tab) [facility] [place] Stop: 02/04/21 08:59 Last Admin: 01/05/21 08:34 Dose: 10 mg Documented by: [id number] Metoprolol Tartrate (Metoprolol Tartrate 25 Mg Tab) 25 mg PO BID [facility] Stop: 02/03/21 20:59 Last Admin: 01/05/21 08:34 Dose: 25 mg Documented by: [id number] Admin: 01/04/21 20:44 Dose: 25 mg Documented by: [id number] Miscellaneous (Remove Nicoderm Patch) 1 ea N/A DAILY@0859 [facility] Stop: 02/04/21 08:58 Last Admin: 01/05/21 05:16 Dose: Not Given Documented by: [id number] Montelukast Sodium (Montelukast Sodium 10 Mg Tablet) 10 mg PO QPM [facility] Stop: 02/03/21 20:59 Last Admin: 01/04/21 20:44 Dose: 10 mg Documented by: [id number] Nicotine (Nicotine 14 Mg/24 Hr Patch) 14 [facility] [place] Stop: 02/04/21 03:59 Last Admin: 01/05/21 05:16 Dose: 14 mg Documented by: [id number] Pantoprazole Sodium (Pantoprazole 40 Mg Tab) 40 mg PO QAM [facility] Stop: 02/04/21 08:59 Last Admin: 01/05/21 08:34 Dose: 40 mg Documented by: [id number] Sennosides (Sennosides 8.8 Mg/5 Ml Udc) 8.8 mg PO BID [facility] Stop: 02/04/21 08:59 Last Admin: 01/05/21 08:38 Dose: 8.8 mg Documented by: [id number] Umeclidinium [place] (Umeclidinium [place] 62.5mcg/Blister 7 Puffs/Inhaler) 1 puffs INH QAM [facility]; Protocol Stop: 02/04/21 08:59 Last Admin: 01/05/21 08:35 Dose: 1 puffs Documented by: [id number] Discontinued Medications Magnesium Sulfate/Dextrose (Magnesium Sulfate / D5w) 1 gm in 100 mls @ 100 mls/hr IV Q1H [facility] Stop: 01/04/21 19:44 Last Infusion: 01/04/21 20:57 Dose: 0 mls/hr Documented by: [id number] Admin: 01/04/21 19:56 Dose: 100 mls/hr Documented by: [id number] Magnesium Sulfate/Dextrose (Magnesium Sulfate / D5w) 1 gm in 100 mls @ 100 mls/hr IV Q1H [facility] Stop: 01/04/21 17:50 Last Infusion: 01/04/21 19:07 Dose: 0 mls/hr Documented by: [id number] Admin: 01/04/21 17:46 Dose: 100 mls/hr Documented by: [id number] Ioversol (Optiray 300 100ml) 100 ml IV ONCE ONE Stop: 01/04/21 14:07 Last Admin: 01/04/21 14:07 Dose: 90 ml Documented by: [id number] Discharge Plan Visit Data Chief Complaint: Abdominal Pain ED Provider: Austin Emmanuel Discharge Problem: Small bowel obstruction, Abdominal pain Patient Disposition: Admitted As Inpatient Discharge Instructions Interventions: ED Discharge Assessment Last Done: 01/04/21 17:58 Discharge Problem: Abdominal pain Qualifiers: Abdominal location: unspecified location Qualified Code(s): R10.9 - Unspecified abdominal pain
[2021-01-05] MEDS: ATORVASTATIN 20 MG TAB PO SCH (21:43)
[2021-01-05] MEDS: MONTELUKAST SODIUM 10 MG TABLET PO SCH (21:44)
[2021-01-06] MEDS: LACTATED RINGER'S 1,000 ML IV SCH (00:04)
--- NOTE | 2021-01-06 06:39 | Surgery Progress Note ---
Date of Service January 06, 2021 Assessment & Plan (1) Abdominal pain: We will advance diet to low-sodium From a surgical standpoint can discharge the patient home Likely has adhesions and keeping her stool soft will be important Discussed with her using senna syrup/liquid Also could try 1 tablespoon of mineral oil 2-3 times per week Morning Admission and Anticipated Discharge Date Admission Date: January 04, 2021 Subjective Patient awake alert and doing well Wants to advance diet Only took 1 dose of senna syrup then did not feel she needed anything more Review of Systems Review of Systems: All systems reviewed & are unremarkable except as noted in HPI & below Physical Exam Constitutional: no acute distress Eyes: + anicteric sclerae Respiratory: no respiratory distress Cardiovascular: Rate/Rhythm: regular rate Gastrointestinal (Abdomen): Inspection/Auscultation: abdomen not distended Musculoskeletal: Head/Neck/Chest: head atraumatic Skin: no rashes, warm and dry Neurologic: awake Psychiatric: Orientation: alert Results & Data ([facility]) Vital Signs (Past 12 Hours) Vital Signs Temp Pulse Resp BP Pulse Ox 01/05/21 23:31 36.8 C 65 18 130/84 97 PG Care Time/CCT Total # of Minutes Spent Total Time Spent with Patient: Total time spent is greater than 50% in coordination of care (as documented) at patient's floor/unit and/or counseling patient: Coding Level of Care Code 96075 Subseq Hosp Care Lvl 3 Diagnoses Abdominal pain R10.9 Abdominal location: unspecified location (1) Abdominal pain Abdominal location: unspecified location Qualified Code(s): R10.9 - Unspecified abdominal pain
[2021-01-06 06:41] LABS: Basophils # (auto) 0.02 K/uL (0-0.2); Basophils % (auto) 0.3 %; Eosinophils # (auto) 0.22 K/uL (0-0.5); Hemoglobin 12.6 g/dL (12.0-16.0); Immature Granulocytes # (auto) 0.02 K/uL (0.00-0.02); Immature Granulocytes % (auto) 0.3 %; Lymphocytes # (auto) 2.08 K/uL (1.2-3.4); Lymphocytes % (auto) 27.9 %; Mean Corpuscular Hemoglobin 29.3 pg (25-34); Mean Corpuscular Hgb Conc 34.1 g/dL (32-36); Mean Platelet Volume 9.9 fL (7.4-10.4); Monocytes # (auto) 0.32 K/uL (0.11-0.59); Monocytes % (auto) 4.3 %; Neutrophils # (auto) 4.79 K/uL (1.4-6.5); Neutrophils % (auto) 64.2 %; Platelet Count 287 K/uL (130-400); RDW Coefficient of Variation 14.5 % (11.5-14.5); RDW Standard Deviation 45.2 fL (36.4-46.3); White Blood Count 7.45 K/uL (4.8-10.8)
[2021-01-06 07:20] LABS: BUN Creatinine Ratio 7.4 (10-20); Calcium 8.9 mg/dl (8.5-10.1); Creatinine Clr Calc Pharmacy 99.1 ml/min; Est GFR (African American) 97.4; Est GFR (Non-African American) 84.1; Potassium 3.5 mmol/L (3.5-5.1)
[2021-01-06] MEDS: GABAPENTIN 300 MG CAP PO SCH (08:19)
[2021-01-06] MEDS: UMECLIDINIUM BROMIDE 62.5MCG/BLISTER 7 PUFFS/INHALER INH SCH (08:19)
[2021-01-06] MEDS: GABAPENTIN 600 MG TAB PO SCH (08:19)
[2021-01-06] MEDS: lisinopril 10 MG TAB PO SCH (08:20)
[2021-01-06] MEDS: ENOXAPARIN INJ 40 MG/0.4 ML SYR SQ SCH (08:20)
[2021-01-06] MEDS: FLUTICASONE/VILANTEROL 100/25MCG 14 PUFFS/INHALER INH SCH (08:20)
[2021-01-06] MEDS: METOPROLOL TARTRATE 25 MG TAB PO SCH (08:20)
[2021-01-06] MEDS: NICOTINE 14 MG/24 HR PATCH TD SCH (08:20)
[2021-01-06] MEDS: PANTOprazole 40 MG TAB PO SCH (08:21)
[2021-01-06] MEDS: SENNOSIDES 8.8 MG/5 ML UDC PO SCH (08:21)
--- NOTE | 2021-01-06 10:50 | Hospitalist Progress Note ---
Date of Service January 06, 2021 Assessment & Plan (1) Small bowel obstruction: Now resolved. Tolerating advance diet. IV fluids discontinued. Surgery consultation appreciated. Home today, January 06 (2) Obstructive sleep apnea of adult: Stable. CPAP at night as tolerated (3) COPD (chronic obstructive pulmonary disease): Stable. Treated with Singulair and umeclidinium (4) Peripheral neuropathy: Stable. Continue gabapentin therapy (5) Hypertension: Treated with lisinopril and metoprolol. Stable (6) Hypercholesterolemia: Continue statin therapy DVT prophylaxis: Lovenox subcu Disposition: Home today, January 06 Admission and Anticipated Discharge Date Admission Date: January 04, 2021 Subjective Alert and oriented. She is tolerating her advanced diet. Bowel obstruction appears to have resolved. She will go home today. Review of Systems Review of Systems: All systems reviewed & are unremarkable except as noted in HPI & below Physical Exam Physical Exam: General-alert and oriented x3, no fevers, no chills HEENT-head atraumatic and normocephalic, pupils equal and reactive to light, extraocular muscles intact Neck-no lymphadenopathy or thyromegaly, trachea midline Chest-clear to auscultation percussion. No rales wheezing or rhonchi Cardiac-regular rate and rhythm, normal S1 and S2 Abdomen-normal bowel sounds, nontender, no hepatosplenomegaly Extremities-no cyanosis, clubbing, or edema Neuro-cranial nerves II through XII intact, motor and sensory function within normal limits, strength symmetrical 5/5, no focal deficits Psych-normal affect, normal mood Results & Data Results & Data ([facility]) Vital Signs (Past 12 Hours) Vital Signs Temp Pulse Resp BP Pulse Ox 01/06/21 08:00 36.9 C 68 16 126/78 97 01/05/21 23:31 36.8 C 65 18 130/84 97 Laboratory Results 01/06/21 06:22 01/06/21 06:22 PG Care Time/CCT Total # of Minutes Spent Total Time Spent with Patient: Total time spent is greater than 50% in coordination of care (as documented) at patient's floor/unit and/or counseling patient: Coding Level of Care Code 62927 Subseq Hosp Care Lvl 3 Diagnoses Small bowel obstruction K56.609 Obstructive sleep apnea of adult G47.33 COPD (chronic obstructive pulmonary disease) J44.9 Peripheral neuropathy G62.9 Hypertension I10 Hypercholesterolemia E78.00
--- NOTE | 2021-01-06 13:14 | Discharge Summary ---
Date of Service January 06, 2021 Admission HPI Per Admitting Provider Bettye Hicks is a 60-year-old female with history of small bowel obstruction who presents to the ER with abdominal pain. Symptoms started on Sunday morning around 10 AM with nausea and feeling bloated. Abdominal pain started shortly after this which has been generalized but mostly in the left lower quadrant. She has been passing gas. She reports on her last small bowel obstruction in gabapentin was not given due to n.p.o. status and this caused lower restlessness and sweats. She required an NG tube on that occasion but feels much better than her previous admission and currently declines NG tube insertion. She denies any current nausea, vomiting, hematemesis, melena or bright red blood in stool. In the ER CT abdomen/pelvis showed findings consistent with small bowel obstruction with no definitive transition point. She was referred to medicine for admission ongoing management of small bowel obstruction. She has also been seen by the surgical team. Principal Diagnosis Partial small bowel obstruction Discharge Data Allergies Allergy/AdvReac Type Severity Reaction Status Date / Time amoxicillin [From Augmentin] Allergy Intermediate Hives Verified 01/04/21 13:09 clavulanic acid Allergy Intermediate Hives Verified 01/04/21 13:09 [From Augmentin] codeine AdvReac Intermediate Dizziness, Verified 01/04/21 13:09 vomiting morphine AdvReac Intermediate Vomiting Verified 01/04/21 13:09 prednisone AdvReac Intermediate Dizziness Verified 01/04/21 13:09 Consultations 01/04/21 14:29 Consult General Surgery Stat ED Decision to Admit Stat Ordered Studies 01/04/21 11:59 CT abd pelvis IV con only Stat Hospital Course (1) Small bowel obstruction: No NG tube per patient wishes IV fluids N.p.o. surgery consult appreciated (2) S/P cholecystectomy: Notable recent history of this with likely cause of small bowel obstruction adhesions from this operation. (3) COPD (chronic obstructive pulmonary disease): Continue her routine inhalers (Symbicort) or hospital formulary equivalent. No acute exacerbation. (4) Chronic diastolic CHF (congestive heart failure): Hold Lasix while on IV fluids Appears hypovolemic at present (5) Hypertension: Continue metoprolol tartrate 25 mg p.o. twice daily and lisinopril 10 mg p.o. every morning (6) Hypercholesterolemia: Continue atorvastatin 20 mg. Daily (7) Acid reflux disease with ulcer: Continue pantoprazole 40 mg p.o. daily (8) Peripheral neuropathy: Continue her usual gabapentin given previous n.p.o. status without vesicles withdrawals during her last admission. (9) Obstructive sleep apnea of adult: Noted history of this however patient does not wear CPAP. (10) Tobacco abuse: Nicotine patch. Counseled regarding tobacco cessation. Total Time Total Time Spent Total Time Spent (In Minutes): 35 minutes Total Time Includes: Examination of the Patient, Discharge Planning and Medication Reconciliation Discharge Plan Discharge Items Patient Disposition: Home - Self-Care Reason For Visit: SMALL BOWEL OBSTRUCTION Discharge Diagnosis: Partial small bowel obstruction Activity: Resume your previous activity Non-emergency contact: Primary Care Provider Call non-emergency contact if: you have any medication questions and your symptoms worsen Follow-up/Referrals: Britney Kyle MD [Primary Care Provider] - 01/11/21 10:15 am (Pt is scheduled on 01/11/21 at 10:15AM with Maryjane Lopez PA-C. ) Diet: Regular Addtl Attending Provider Instructions: All medications remain the same Pending Studies at Discharge: No Stand-Alone Forms: [employer], Smoking Cessation Medications and DC Order Prescriptions: Continued sennosides 8.6 mg tablet 8.6 mg PO BID PRN (Reason: constipation) Qty: 180 RF: 1 ibuprofen 800 mg tablet 800 mg PO DAILY PRN (Reason: Pain) Qty: 90 RF: 5 atorvastatin 20 mg tablet 20 mg PO QPM Qty: 90 RF: 3 albuterol sulfate 2.5 mg /3 mL (0.083 %) solution for nebulization 2.5 mg inhalation Q6H PRN (Reason: shortness of breath or wheezing) Qty: 1 RF: 0 simethicone 180 mg capsule 180 mg PO DAILY PRN (Reason: gas) RF: 0 budesonide-formoterol [Symbicort] 160-4.5 mcg/actuation HFA aerosol inhaler 2 puff inhalation BID Qty: 10.2 RF: 3 albuterol sulfate [Ventolin HFA] 90 mcg/actuation HFA aerosol inhaler 2 puff INHALATION Q6H PRN (Reason: Shortness Of Breath Or Wheezing) Qty: 18 RF: 5 docusate sodium [Colace] 100 mg capsule 100 mg PO BID PRN (Reason: Constipation) RF: 0 potassium chloride 20 mEq tablet extended release 20 meq PO 2XWK RF: 0 Spiriva with HandiHaler 18 mcg Capsule, W/Inhalation Device 1 cap INHALATION QAM RF: 0 gabapentin 600 mg tablet 600 mg PO TID RF: 0 pantoprazole 40 mg tablet,delayed release (DR/EC) 40 mg PO QAM RF: 0 lisinopril 10 mg tablet 10 mg PO QAM RF: 0 gabapentin 300 mg capsule 300 mg PO TID RF: 0 montelukast 10 mg tablet 10 mg PO QPM RF: 0 metoprolol tartrate 25 mg tablet 25 mg PO BID RF: 0 furosemide 20 mg tablet 20 mg PO 2XWK RF: 0 Discharge Orders: Discharge Order (Routine); Ordered 01/06/21 Ordered By: Michael Jacobsen/Other Patient Handouts: Small Bowel Obstruction Admission Data Admit Date/Time: 01/04/21 15:49 Attending Provider: Michael Chang Admit Provider: Sage Cottrell Primary Care Provider: Britney Kyle V. Other Providers: Michael Thompson ; Sage Cottrell Other Interventions: Discharge Summary Assessment (RN) Last Done: 01/06/21 12:46 Coding Level of Care Code D/C Day Management >30 mins Diagnoses Small bowel obstruction K56.609 S/P cholecystectomy Z90.49 COPD (chronic obstructive pulmonary disease) J44.9 Chronic diastolic CHF (congestive heart failure) I50.32 Hypertension I10 Hypercholesterolemia E78.00 Acid reflux disease with ulcer K21.9 Peripheral neuropathy G62.9 Obstructive sleep apnea of adult G47.33 Tobacco abuse Z72.0
== END 2021-01-06 13:21 | disposition home or self-care (01) | DRG 389 ==
LOC: ED 11:29 → SUATTDRO 15:49 → 3N 15:49